=== PATIENT | male | born 1950 | race Caucasian/White ===

== ENCOUNTER 2017-10-26 08:00 | Inpatient (IN) | payer MEDICARE ==
[~2017-10-26] VITALS: Ht 193 cm; Wt 99.0 kg
[2017-10-26 08:48] LABS: Basophils # (auto) 0 uL; Basophils % (auto) 0.4 % (0.0-2.0); Eosinophils # (auto) 0 uL; Eosinophils % (auto) 0.5 % (0.0-7.0); Hematocrit 42.4 % (41.0-53.0); Hemoglobin 14.8 g/dL (13.5-17.5); Lymphocytes # (auto) 0.9 uL; Lymphocytes % (auto) 9.8 % (10.0-50.0); Mean Corpuscular Hemoglobin 30.9 pg (28.0-32.0); Mean Corpuscular Hgb Conc. 34.7 g/dL (32.0-36.0); Monocytes # (auto) 0.7 uL; Neutrophils # (auto) 7.3 uL; Neutrophils % (auto) 81.3 % (37.0-80.0); Nucleated Red Blood Cells % 0.1 %; Platelet Count (auto) 304 10^3/uL (140-450); Red Blood Cells 4.77 10^6/uL (4.5-5.90); Red Cell Distribution Width 12.4 % (11.8-14.3); White Blood Cell 8.9 10^3/uL (4.4-10.8)
[2017-10-26 09:04] LABS: Alanine Aminotransferase 20 U/L (16-61); Albumin 3.9 g/dL (3.4-5.0); Alkaline Phosphatase 72 U/L (45-117); Anion Gap 10 (5-15); Aspartate Aminotransferase 11 U/L (15-37); BUN/Creatinine Ratio 28.9; Bilirubin, Total 0.6 mg/dL (0.2-1.0); Blood Urea Nitrogen 35 mg/dL (7-18); Calcium 9.2 mg/dL (8.5-10.1); Carbon Dioxide 26 mmol/L (21-32); Chloride 98 mmol/L (98-107); GFR African American 77 mL/min; GFR Non-African American 64 mL/min; Magnesium 2.6 mg/dL (1.6-2.6); Potassium 3.9 mmol/L (3.5-5.1); Sodium 134 mmol/L (136-145); Total Protein 7.6 g/dL (6.4-8.2)
[2017-10-26 09:11] LABS: Glucose 410 mg/dL (74-106)
[2017-10-26] MEDS ORDERED: SODIUM CHLORIDE 0.9% 1,000 ML IV ONE ×2 (10:52)
[2017-10-26] MEDS ORDERED: InsuLIN REG 1unit/0.01ml Soln (100units/ml) IV ONE (11:00)
[2017-10-26] MEDS ORDERED: cloNIDine HCL 0.1 MG TAB PO ONE (14:30)
[2017-10-26] MEDS ORDERED: PROMETHAZINE HCL 25 MG/ML 1ML IV PRN (15:15)
[2017-10-26] MEDS ORDERED: ACETAMINOPHEN 500 MG TAB PO PRN (15:15)
[2017-10-26] MEDS ORDERED: MORPHINE SULFATE 8mg/ml INJ SDV IV PRN ×2 (15:15)
[2017-10-26] MEDS ORDERED: NITROGLYCERIN 0.4 MG SL TAB SL PRN (15:15)
[2017-10-26] MEDS ORDERED: LORazepam 0.5 MG TAB PO PRN (15:15)
[2017-10-26] MEDS ORDERED: TEMAZEPAM 15 MG CAP PO PRN (15:15)
[2017-10-26] MEDS ORDERED: DEXTROSE (50%) 50ML SYRG IV PRN (15:15)
[2017-10-26] MEDS ORDERED: HYDROcodone-ACET 5/325MG TAB PO PRN (15:15)
[2017-10-26] MEDS ORDERED: LACTULOSE 20Gm/30ML SOLN PO PRN (15:15)
[2017-10-26 15:51] LABS: Cholesterol 144 mg/dL (< 200); Creatine Kinase IFCC 140 U/L (39-308); HDL Cholesterol 38 mg/dL (40-59); LDL Cholesterol 82 mg/dL (< 100); Triglycerides 253 mg/dL (< 150)
[2017-10-26] MEDS: ACCU-CHEK COMFORT CURVE STRIP VI SCH ×2 (16:00→20:29)
[2017-10-26] MEDS: SODIUM CHLORIDE 0.9% 1,000 ML IV SCH (16:06)
[2017-10-26 16:09] LABS: Folate (Folic Acid) 16.58 ng/mL (5.38-24)
[2017-10-26] MEDS: InsuLIN REG 1unit/0.01ml Soln (100units/ml) SC SCH ×2 (18:21→20:31)
[2017-10-26] MEDS: cefTRIAXone 1GM/10ml IVPUSH 10 ML IV SCH (18:56)
[2017-10-26 20:12] LABS: INR 1.06 (0.9-1.15); Partial Thromboplastin Time 28.7 sec (23.78-33.04); Prothrombin Time 11.3 sec (9.27-12.13)
[2017-10-26 20:13] LABS: Lactic Acid w/Reflex 2.4 mmol/L (0.4-2.0)
[2017-10-26] MEDS: CLINDAMYCIN 600MG IV 50 ML IV SCH (22:24)
[2017-10-26] MEDS: ATORVASTATIN 20 MG TAB PO SCH (22:25)
[2017-10-26 22:30] VITALS: BP 138/77
[2017-10-27] MEDS ORDERED: PIPERACILLIN-TAZOB 3.375GM 100 ML IV SCH
[2017-10-27] MEDS: ACCU-CHEK COMFORT CURVE STRIP VI SCH ×7 (00:22→23:49)
[2017-10-27] MEDS: InsuLIN REG 1unit/0.01ml Soln (100units/ml) SC SCH ×7 (04:00→23:49)
[2017-10-27] MEDS: SODIUM CHLORIDE 0.9% 1,000 ML IV SCH ×2 (04:40→17:56)
[2017-10-27 05:13] LABS: Urine Bacteria NONE SEEN /hpf (None Seen); Urine Blood Negative /uL (Negative); Urine Specific Gravity 1.032 (1.001-1.035); Urine WBC 1 /hpf (0 - 3)
[2017-10-27 05:23] VITALS: BP 156/100
[2017-10-27] MEDS: CLINDAMYCIN 600MG IV 50 ML IV SCH ×3 (05:31→21:52)
[2017-10-27 05:34] LABS: Alcohol, Urine < 3.0 mg/dL (0-5); Amphetamine Screen, Urine NEGATIVE (NEGATIVE); Barbiturate Scree,Urine NEGATIVE (NEGATIVE); Benzodiazephine Screen, Urine NEGATIVE (NEGATIVE); Cannabinoid Screen, Urine NEGATIVE (NEGATIVE); Cocaine Screen, Urine NEGATIVE (NEGATIVE); Opiate Scree,Urine NEGATIVE (NEGATIVE); Phencyclidine Screen, Urine NEGATIVE (NEGATIVE)
[2017-10-27 06:51] LABS: Basophils # (auto) 0 uL; Basophils % (auto) 0.4 % (0.0-2.0); Eosinophils # (auto) 0.1 uL; Eosinophils % (auto) 1.2 % (0.0-7.0); Hematocrit 37.2 % (41.0-53.0); Hemoglobin 13.1 g/dL (13.5-17.5); Lymphocytes # (auto) 0.9 uL; Lymphocytes % (auto) 12.5 % (10.0-50.0); Mean Corpuscular Hemoglobin 31.5 pg (28.0-32.0); Mean Corpuscular Hgb Conc. 35.3 g/dL (32.0-36.0); Monocytes # (auto) 0.7 uL; Monocytes % (auto) 9.5 % (0.0-12.0); Neutrophils # (auto) 5.2 uL; Neutrophils % (auto) 76.4 % (37.0-80.0); Platelet Count (auto) 222 10^3/uL (140-450); Red Blood Cells 4.17 10^6/uL (4.5-5.90); Red Cell Distribution Width 12.8 % (11.8-14.3); White Blood Cell 6.9 10^3/uL (4.4-10.8)
[2017-10-27 08:00] VITALS: BP_SYST 179; BP_SYST 192; BP_DIAS 100; BP_DIAS 112
[2017-10-27] MEDS: cefTRIAXone 1GM/10ml IVPUSH 10 ML IV SCH (08:04)
[2017-10-27] MEDS: LABETALOL HCL 5 MG/ML ML 20ML VIAL IV PRN ×2 (08:04→11:06)
[2017-10-27] MEDS: PANTOPRAZOLE 40 MG TAB PO SCH (09:02)
[2017-10-27] MEDS: ASPirin 81 mg TAB PO SCH (09:03)
[2017-10-27] MEDS: ENOXAPARIN SOD 60 MG/0.6 ML SYRINGE SC SCH (09:03)
[2017-10-27 12:00] VITALS: BP 173/101
[2017-10-27] MEDS: cloNIDine HCL 0.1 MG TAB PO PRN (12:31)
[2017-10-27] MEDS: GABAPENTIN 300 MG CAP PO SCH ×2 (14:31→22:07)
[2017-10-27 16:45] VITALS: BP 130/85
[2017-10-27] MEDS: METOPROLOL TARTRATE 50 MG TAB PO SCH (21:53)
[2017-10-27] MEDS: ATORVASTATIN 20 MG TAB PO SCH (21:54)
[2017-10-27 22:25] VITALS: BP 166/99
[2017-10-28] VITALS (7 sets, daily range): BP systolic 87–170; BP diastolic 55–99
[2017-10-28] MEDS: SODIUM CHLORIDE 0.9% 1,000 ML IV SCH ×2 (04:44→17:36)
[2017-10-28] MEDS: InsuLIN REG 1unit/0.01ml Soln (100units/ml) SC SCH ×5 (04:48→19:52)
[2017-10-28] MEDS: ACCU-CHEK COMFORT CURVE STRIP VI SCH ×5 (04:48→19:52)
[2017-10-28] MEDS: cloNIDine HCL 0.1 MG TAB PO PRN ×2 (04:49→17:37)
[2017-10-28] MEDS: GABAPENTIN 300 MG CAP PO SCH ×3 (05:50→21:20)
[2017-10-28] MEDS: CLINDAMYCIN 600MG IV 50 ML IV SCH ×3 (05:52→21:19)
[2017-10-28 06:22] LABS: Basophils # (auto) 0 uL; Basophils % (auto) 0.4 % (0.0-2.0); Eosinophils # (auto) 0.1 uL; Eosinophils % (auto) 1.5 % (0.0-7.0); Hematocrit 40.8 % (41.0-53.0); Hemoglobin 14.5 g/dL (13.5-17.5); Lymphocytes # (auto) 0.8 uL; Lymphocytes % (auto) 9.6 % (10.0-50.0); Mean Corpuscular Hemoglobin 31.7 pg (28.0-32.0); Mean Corpuscular Hgb Conc. 35.5 g/dL (32.0-36.0); Mean Corpuscular Volume 89.2 fL (80.0-100.0); Monocytes # (auto) 0.5 uL; Neutrophils # (auto) 6.4 uL; Neutrophils % (auto) 81.5 % (37.0-80.0); Nucleated Red Blood Cells % 0.1 %; Platelet Count (auto) 237 10^3/uL (140-450); Red Blood Cells 4.57 10^6/uL (4.5-5.90); Red Cell Distribution Width 12.7 % (11.8-14.3); White Blood Cell 7.8 10^3/uL (4.4-10.8)
[2017-10-28 06:32] LABS: Albumin 3.5 g/dL (3.4-5.0); Calcium 8.5 mg/dL (8.5-10.1); Potassium 3.9 mmol/L (3.5-5.1)
[2017-10-28 06:43] LABS: BUN/Creatinine Ratio 24.1
[2017-10-28 06:55] LABS: Bilirubin, Total 0.7 mg/dL (0.2-1.0)
[2017-10-28 07:00] LABS: Total Protein 7.1 g/dL (6.4-8.2)
[2017-10-28] MEDS: ASPirin 81 mg TAB PO SCH (10:43)
[2017-10-28] MEDS: METOPROLOL TARTRATE 50 MG TAB PO SCH ×2 (10:46→21:33)
[2017-10-28] MEDS: PANTOPRAZOLE 40 MG TAB PO SCH (10:47)
[2017-10-28] MEDS: ENOXAPARIN SOD 60 MG/0.6 ML SYRINGE SC SCH (10:48)
[2017-10-28] MEDS: cefTRIAXone 1GM/10ml IVPUSH 10 ML IV SCH (10:48)
[2017-10-28] MEDS: ATORVASTATIN 20 MG TAB PO SCH (21:19)
[2017-10-28] MEDS: ASCORBIC ACID 500 MG TAB PO SCH (21:20)
[2017-10-28] MEDS: MULTIPLE VITAMINS W/ MINERALS TAB PO SCH (21:34)
[2017-10-29] MEDS: ACCU-CHEK COMFORT CURVE STRIP VI SCH ×6 (00:03→20:37)
[2017-10-29] MEDS: InsuLIN REG 1unit/0.01ml Soln (100units/ml) SC SCH ×6 (00:03→20:37)
[2017-10-29 05:00] VITALS: BP 125/76
[2017-10-29] MEDS: SODIUM CHLORIDE 0.9% 1,000 ML IV SCH ×2 (05:20→18:19)
[2017-10-29] MEDS: GABAPENTIN 300 MG CAP PO SCH ×3 (05:20→22:43)
[2017-10-29] MEDS: CLINDAMYCIN 600MG IV 50 ML IV SCH ×3 (05:21→22:40)
[2017-10-29 06:15] LABS: Basophils # (auto) 0 uL; Basophils % (auto) 0.4 % (0.0-2.0); Eosinophils # (auto) 0.1 uL; Eosinophils % (auto) 2.5 % (0.0-7.0); Hematocrit 38.3 % (41.0-53.0); Hemoglobin 13.5 g/dL (13.5-17.5); Lymphocytes # (auto) 0.9 uL; Lymphocytes % (auto) 14.7 % (10.0-50.0); Mean Corpuscular Hemoglobin 31.5 pg (28.0-32.0); Mean Corpuscular Hgb Conc. 35.3 g/dL (32.0-36.0); Mean Corpuscular Volume 89.3 fL (80.0-100.0); Monocytes # (auto) 0.6 uL; Monocytes % (auto) 10.1 % (0.0-12.0); Neutrophils # (auto) 4.2 uL; Neutrophils % (auto) 72.3 % (37.0-80.0); Nucleated Red Blood Cells % 0.1 %; Platelet Count (auto) 224 10^3/uL (140-450); Red Blood Cells 4.29 10^6/uL (4.5-5.90); Red Cell Distribution Width 12.4 % (11.8-14.3); White Blood Cell 5.9 10^3/uL (4.4-10.8)
[2017-10-29 06:31] LABS: Albumin 3.3 g/dL (3.4-5.0); BUN/Creatinine Ratio 27.1; Bilirubin, Total 0.5 mg/dL (0.2-1.0); Calcium 8.3 mg/dL (8.5-10.1); Potassium 3.5 mmol/L (3.5-5.1); Total Protein 6.5 g/dL (6.4-8.2)
[2017-10-29 08:00] VITALS: BP 125/76
[2017-10-29 09:00] VITALS: BP 131/82
[2017-10-29] MEDS: MULTIPLE VITAMINS W/ MINERALS TAB PO SCH ×2 (09:36→22:42)
[2017-10-29] MEDS: ASPirin 81 mg TAB PO SCH (09:36)
[2017-10-29] MEDS: PANTOPRAZOLE 40 MG TAB PO SCH (09:36)
[2017-10-29] MEDS: cefTRIAXone 1GM/10ml IVPUSH 10 ML IV SCH (09:37)
[2017-10-29] MEDS: METOPROLOL TARTRATE 50 MG TAB PO SCH (09:37)
[2017-10-29] MEDS: ASCORBIC ACID 500 MG TAB PO SCH ×2 (09:37→22:43)
[2017-10-29] MEDS: ENOXAPARIN SOD 60 MG/0.6 ML SYRINGE SC SCH (09:37)
[2017-10-29] MEDS ORDERED: CLOPIDOGREL BISULFATE 75 MG TAB PO SCH (10:00)
[2017-10-29] MEDS ORDERED: LACTULOSE 20Gm/30ML SOLN PO ONE (11:30)
[2017-10-29 13:00] VITALS: BP 111/67
[2017-10-29 17:00] VITALS: BP 184/97
[2017-10-29] MEDS: cloNIDine HCL 0.1 MG TAB PO PRN (17:04)
[2017-10-29 22:00] VITALS: BP 122/79
[2017-10-29] MEDS: ATORVASTATIN 20 MG TAB PO SCH (22:41)
[2017-10-29] MEDS: METOPROLOL TARTRATE 25 MG TAB PO SCH (22:42)
[2017-10-29] MEDS: CILOSTAZOL 100 MG TAB PO SCH (22:44)
[2017-10-30] MEDS: ACCU-CHEK COMFORT CURVE STRIP VI SCH ×4 (04:00→12:19)
[2017-10-30] MEDS: InsuLIN REG 1unit/0.01ml Soln (100units/ml) SC SCH ×4 (04:02→12:31)
[2017-10-30] MEDS: cloNIDine HCL 0.1 MG TAB PO PRN ×2 (04:53→12:21)
[2017-10-30 05:00] VITALS: BP 167/100
[2017-10-30 05:01] VITALS: BP 164/90
[2017-10-30] MEDS: GABAPENTIN 300 MG CAP PO SCH ×2 (06:00→14:03)
[2017-10-30] MEDS: CLINDAMYCIN 600MG IV 50 ML IV SCH ×2 (06:00→14:04)
[2017-10-30 06:08] LABS: Basophils # (auto) 0 uL; Basophils % (auto) 0.4 % (0.0-2.0); Eosinophils # (auto) 0.1 uL; Hematocrit 38.2 % (41.0-53.0); Hemoglobin 13.4 g/dL (13.5-17.5); Lymphocytes # (auto) 0.8 uL; Lymphocytes % (auto) 11.5 % (10.0-50.0); Mean Corpuscular Hgb Conc. 35.1 g/dL (32.0-36.0); Mean Corpuscular Volume 88.4 fL (80.0-100.0); Monocytes # (auto) 0.6 uL; Monocytes % (auto) 9.2 % (0.0-12.0); Neutrophils # (auto) 5.2 uL; Neutrophils % (auto) 76.9 % (37.0-80.0); Platelet Count (auto) 211 10^3/uL (140-450); Red Blood Cells 4.32 10^6/uL (4.5-5.90); Red Cell Distribution Width 12.6 % (11.8-14.3); White Blood Cell 6.8 10^3/uL (4.4-10.8)
[2017-10-30] MEDS: SODIUM CHLORIDE 0.9% 1,000 ML IV SCH (06:25)
[2017-10-30 06:39] LABS: Albumin 3.3 g/dL (3.4-5.0); BUN/Creatinine Ratio 23.6; Bilirubin, Total 0.7 mg/dL (0.2-1.0); Calcium 8.2 mg/dL (8.5-10.1); Potassium 3.6 mmol/L (3.5-5.1); Total Protein 6.6 g/dL (6.4-8.2)
[2017-10-30] MEDS: cefTRIAXone 1GM/10ml IVPUSH 10 ML IV SCH (08:53)
[2017-10-30 09:00] VITALS: BP 132/78
[2017-10-30] MEDS ORDERED: ASPirin-EC 81 mg tab PO SCH (10:00)
[2017-10-30] MEDS ORDERED: CLOPIDOGREL BISULFATE 75 MG TAB PO SCH (10:00)
[2017-10-30] MEDS: PANTOPRAZOLE 40 MG TAB PO SCH (10:54)
[2017-10-30] MEDS: ASCORBIC ACID 500 MG TAB PO SCH (10:54)
[2017-10-30] MEDS: CILOSTAZOL 100 MG TAB PO SCH (10:55)
[2017-10-30] MEDS: METOPROLOL TARTRATE 25 MG TAB PO SCH (10:55)
[2017-10-30] MEDS: MULTIPLE VITAMINS W/ MINERALS TAB PO SCH (10:55)
[2017-10-30] MEDS: ENOXAPARIN SOD 60 MG/0.6 ML SYRINGE SC SCH (10:56)
[2017-10-30 12:41] VITALS: BP 180/101
[2017-10-30 17:00] VITALS: BP 143/87
== END 2017-10-30 17:36 | disposition home or self-care (01) | DRG 603 ==
LOC: ER 08:00 → TELE 08:01 → TELE-WESTW 18:32
PROVIDERS: ADMIT Internal Medicine; ATTEND Family Medicine
DX: L03.032 Cellulitis of left toe (principal); E11.42 Type 2 diabetes mellitus with diabetic polyneuropathy; E11.51 Type 2 diabetes mellitus with diabetic peripheral angiopathy without gangrene; G95.9 Disease of spinal cord, unspecified; E11.621 Type 2 diabetes mellitus with foot ulcer; I10 Essential (primary) hypertension; I77.1 Stricture of artery; E11.65 Type 2 diabetes mellitus with hyperglycemia; I70.202 Unspecified atherosclerosis of native arteries of extremities, left leg; L97.529 Non-pressure chronic ulcer of other part of left foot with unspecified severity; M48.061 Spinal stenosis, lumbar region without neurogenic claudication; Z82.49 Family history of ischemic heart disease and other diseases of the circulatory system; Z83.3 Family history of diabetes mellitus; T50.905A Adverse effect of unspecified drugs, medicaments and biological substances, initial encounter; Y92.89 Other specified places as the place of occurrence of the external cause; R26.9 Unspecified abnormalities of gait and mobility; M47.896 Other spondylosis, lumbar region; R25.3 Fasciculation; M62.50 Muscle wasting and atrophy, not elsewhere classified, unspecified site
CPT/HCPCS: 36415; 70450; 71046; 72148; 73700; 80053; 80061; 80307; 81001; 82550; 82607; 82746; 82962; 83036; 83605; 83735; 84443; 84484; 85025; 85610; 85652; 85730; 87040; 93005; 93306; 93886; 93926; 96361; 96374; 97110; 97116; 97163; 97530; J1815; J3490

== ENCOUNTER 2017-11-25 16:09 | Inpatient (IN) | payer MEDICARE ==
[~2017-11-25] VITALS: Ht 190.5 cm; Wt 85.2 kg
[2017-11-25 17:08] LABS: Basophils # (auto) 0.1 uL; Basophils % (auto) 0.5 % (0.0-2.0); Eosinophils # (auto) 0.3 uL; Eosinophils % (auto) 2.8 % (0.0-7.0); Hematocrit 33.1 % (41.0-53.0); Hemoglobin 11.4 g/dL (13.5-17.5); Lymphocytes # (auto) 0.4 uL; Lymphocytes % (auto) 3.6 % (10.0-50.0); Mean Corpuscular Hemoglobin 29.7 pg (28.0-32.0); Mean Corpuscular Hgb Conc. 34.5 g/dL (32.0-36.0); Monocytes # (auto) 0.7 uL; Monocytes % (auto) 5.8 % (0.0-12.0); Neutrophils # (auto) 10.2 uL; Neutrophils % (auto) 87.3 % (37.0-80.0); Platelet Count (auto) 401 10^3/uL (140-450); Red Blood Cells 3.85 10^6/uL (4.5-5.90); Red Cell Distribution Width 13.3 % (11.8-14.3); White Blood Cell 11.6 10^3/uL (4.4-10.8)
[2017-11-25 17:15] LABS: Calcium 8.3 mg/dL (8.5-10.1); Potassium 4.9 mmol/L (3.5-5.1)
[2017-11-25 17:21] LABS: BUN/Creatinine Ratio 43.3; Bilirubin, Total 0.5 mg/dL (0.2-1.0); Total Protein 7.3 g/dL (6.4-8.2)
[2017-11-25] MEDS ORDERED: cefTRIAXone 1GM/10ml IVPUSH 10 ML IV ONE (18:30)
[2017-11-25] MEDS ORDERED: ACETAMINOPHEN 500 MG TAB PO PRN (18:30)
[2017-11-25] MEDS ORDERED: LORazepam 0.5 MG TAB PO PRN (18:30)
[2017-11-25] MEDS ORDERED: PROMETHAZINE HCL 25 MG/ML 1ML IV PRN (18:30)
[2017-11-25] MEDS ORDERED: DEXTROSE (50%) 50ML SYRG IV PRN (18:30)
[2017-11-25] MEDS ORDERED: NITROGLYCERIN 0.4 MG SL TAB SL PRN (18:30)
[2017-11-25] MEDS ORDERED: MORPHINE SULF INJ 2 MG/ML SYRINGE 1ML IV PRN ×2 (18:30)
[2017-11-25] MEDS ORDERED: TEMAZEPAM 15 MG CAP PO PRN (18:30)
[2017-11-25] MEDS: SODIUM CHLORIDE 0.9% 1,000 ML IV SCH (18:34)
[2017-11-25 18:55] LABS: Urine Bacteria NONE SEEN /hpf (None Seen); Urine Blood 2+ /uL (Negative); Urine Mucus FEW (None Seen); Urine Specific Gravity 1.017 (1.001-1.035); Urine WBC 3 /hpf (0 - 3)
[2017-11-25] MEDS ORDERED: ENOXAPARIN SOD 100 MG/1 ML SYRINGE SC ONE (20:30)
[2017-11-25 21:00] VITALS: BP 146/73
[2017-11-25] MEDS: CLINDAMYCIN 300MG IV 50 ML IV SCH (21:47)
[2017-11-25] MEDS: ACCU-CHEK COMFORT CURVE STRIP VI SCH (21:56)
[2017-11-25 22:00] VITALS: BP 146/73
[2017-11-25] MEDS: InsuLIN REG 1unit/0.01ml Soln (100units/ml) SC SCH (22:05)
[2017-11-26 05:00] VITALS: BP 133/72
[2017-11-26] MEDS: SODIUM CHLORIDE 0.9% 1,000 ML IV SCH ×2 (05:52→14:26)
[2017-11-26] MEDS: CLINDAMYCIN 300MG IV 50 ML IV SCH ×3 (05:52→21:47)
[2017-11-26 06:26] LABS: Basophils # (auto) 0.1 uL; Basophils % (auto) 0.7 % (0.0-2.0); Eosinophils # (auto) 0.3 uL; Eosinophils % (auto) 3.4 % (0.0-7.0); Hemoglobin 11.4 g/dL (13.5-17.5); Lymphocytes # (auto) 0.4 uL; Lymphocytes % (auto) 4.6 % (10.0-50.0); Mean Corpuscular Hemoglobin 30.7 pg (28.0-32.0); Mean Corpuscular Hgb Conc. 35.7 g/dL (32.0-36.0); Mean Corpuscular Volume 86.2 fL (80.0-100.0); Monocytes # (auto) 0.7 uL; Monocytes % (auto) 7.1 % (0.0-12.0); Neutrophils # (auto) 8.1 uL; Neutrophils % (auto) 84.2 % (37.0-80.0); Platelet Count (auto) 345 10^3/uL (140-450); Red Blood Cells 3.71 10^6/uL (4.5-5.90); Red Cell Distribution Width 13.3 % (11.8-14.3); White Blood Cell 9.6 10^3/uL (4.4-10.8)
[2017-11-26] MEDS: ACCU-CHEK COMFORT CURVE STRIP VI SCH ×4 (06:29→21:48)
[2017-11-26 06:57] LABS: Albumin 2.8 g/dL (3.4-5.0); BUN/Creatinine Ratio 49.3; Bilirubin, Total 0.6 mg/dL (0.2-1.0); Calcium 8.4 mg/dL (8.5-10.1); Potassium 4.2 mmol/L (3.5-5.1); Total Protein 6.7 g/dL (6.4-8.2)
[2017-11-26] MEDS: InsuLIN REG 1unit/0.01ml Soln (100units/ml) SC SCH ×4 (07:02→21:48)
[2017-11-26 08:00] VITALS: BP 153/78
[2017-11-26 08:30] VITALS: BP 133/72
[2017-11-26] MEDS: cefTRIAXone 1GM/10ml IVPUSH 10 ML IV SCH (10:23)
[2017-11-26] MEDS: ENOXAPARIN SOD 100 MG/1 ML SYRINGE SC SCH ×2 (10:23→21:48)
[2017-11-26 12:00] VITALS: BP 113/64
[2017-11-26] MEDS ORDERED: SODIUM CHLORIDE 0.9% 1,000 ML IV ONE (12:45)
[2017-11-26 17:00] VITALS: BP 132/76
[2017-11-26 22:37] VITALS: BP 121/65
[2017-11-27] MEDS: SODIUM CHLORIDE 0.9% 1,000 ML IV SCH ×3 (00:27→20:44)
[2017-11-27 05:30] VITALS: BP 159/92
[2017-11-27] MEDS: CLINDAMYCIN 300MG IV 50 ML IV SCH ×3 (05:36→21:54)
[2017-11-27] MEDS: InsuLIN REG 1unit/0.01ml Soln (100units/ml) SC SCH ×4 (06:13→21:54)
[2017-11-27] MEDS: ACCU-CHEK COMFORT CURVE STRIP VI SCH ×4 (06:14→21:54)
[2017-11-27 06:40] LABS: Basophils # (auto) 0.1 uL; Basophils % (auto) 0.8 % (0.0-2.0); Eosinophils # (auto) 0.3 uL; Eosinophils % (auto) 4.6 % (0.0-7.0); Hematocrit 33.7 % (41.0-53.0); Lymphocytes # (auto) 0.4 uL; Lymphocytes % (auto) 5.2 % (10.0-50.0); Mean Corpuscular Hgb Conc. 35.7 g/dL (32.0-36.0); Mean Corpuscular Volume 86.9 fL (80.0-100.0); Monocytes # (auto) 0.5 uL; Neutrophils # (auto) 6.3 uL; Neutrophils % (auto) 82.4 % (37.0-80.0); Platelet Count (auto) 339 10^3/uL (140-450); Red Blood Cells 3.88 10^6/uL (4.5-5.90); Red Cell Distribution Width 13.1 % (11.8-14.3); White Blood Cell 7.6 10^3/uL (4.4-10.8)
[2017-11-27 07:01] LABS: Albumin 2.9 g/dL (3.4-5.0); BUN/Creatinine Ratio 33.3; Bilirubin, Total 0.6 mg/dL (0.2-1.0); Calcium 8.3 mg/dL (8.5-10.1); Potassium 4.3 mmol/L (3.5-5.1); Total Protein 6.9 g/dL (6.4-8.2)
[2017-11-27 07:50] VITALS: BP 159/92
[2017-11-27 08:38] VITALS: BP 158/85
[2017-11-27] MEDS: ENOXAPARIN SOD 100 MG/1 ML SYRINGE SC SCH ×2 (10:10→21:54)
[2017-11-27] MEDS: cefTRIAXone 1GM/10ml IVPUSH 10 ML IV SCH (10:10)
[2017-11-27 13:00] VITALS: BP 158/85
[2017-11-27 16:37] VITALS: BP 153/88
[2017-11-27 20:00] VITALS: BP 146/76
[2017-11-28] VITALS (7 sets, daily range): BP systolic 143–165; BP diastolic 91–105
[2017-11-28 05:31] LABS: Basophils # (auto) 0 uL; Basophils % (auto) 0.5 % (0.0-2.0); Eosinophils # (auto) 0.4 uL; Eosinophils % (auto) 4.7 % (0.0-7.0); Hematocrit 32.5 % (41.0-53.0); Hemoglobin 11.7 g/dL (13.5-17.5); Lymphocytes # (auto) 0.4 uL; Lymphocytes % (auto) 5.3 % (10.0-50.0); Mean Corpuscular Hemoglobin 30.9 pg (28.0-32.0); Mean Corpuscular Hgb Conc. 35.9 g/dL (32.0-36.0); Mean Corpuscular Volume 86.1 fL (80.0-100.0); Monocytes # (auto) 0.6 uL; Monocytes % (auto) 7.2 % (0.0-12.0); Neutrophils # (auto) 6.7 uL; Neutrophils % (auto) 82.3 % (37.0-80.0); Nucleated Red Blood Cells % 0.1 %; Platelet Count (auto) 338 10^3/uL (140-450); Red Blood Cells 3.78 10^6/uL (4.5-5.90); Red Cell Distribution Width 12.8 % (11.8-14.3); White Blood Cell 8.1 10^3/uL (4.4-10.8)
[2017-11-28 05:57] LABS: Albumin 2.9 g/dL (3.4-5.0); BUN/Creatinine Ratio 24.4; Bilirubin, Total 0.6 mg/dL (0.2-1.0); Calcium 8.2 mg/dL (8.5-10.1); Total Protein 6.5 g/dL (6.4-8.2)
[2017-11-28] MEDS: SODIUM CHLORIDE 0.9% 1,000 ML IV SCH ×2 (06:21→17:00)
[2017-11-28] MEDS: CLINDAMYCIN 300MG IV 50 ML IV SCH ×3 (06:21→22:00)
[2017-11-28] MEDS: InsuLIN REG 1unit/0.01ml Soln (100units/ml) SC SCH ×4 (06:28→22:00)
[2017-11-28] MEDS: ACCU-CHEK COMFORT CURVE STRIP VI SCH ×4 (06:28→22:12)
[2017-11-28] MEDS: cefTRIAXone 1GM/10ml IVPUSH 10 ML IV SCH (09:26)
[2017-11-28] MEDS: ENOXAPARIN SOD 100 MG/1 ML SYRINGE SC SCH ×2 (09:27→22:00)
[2017-11-29] MEDS: SODIUM CHLORIDE 0.9% 1,000 ML IV SCH ×3 (02:26→22:52)
[2017-11-29 05:29] VITALS: BP 158/80
[2017-11-29 05:56] LABS: Basophils # (auto) 0 uL; Basophils % (auto) 0.6 % (0.0-2.0); Eosinophils # (auto) 0.3 uL; Eosinophils % (auto) 3.5 % (0.0-7.0); Hemoglobin 10.8 g/dL (13.5-17.5); Lymphocytes # (auto) 0.4 uL; Lymphocytes % (auto) 4.7 % (10.0-50.0); Mean Corpuscular Hgb Conc. 36.2 g/dL (32.0-36.0); Mean Corpuscular Volume 85.7 fL (80.0-100.0); Monocytes # (auto) 0.5 uL; Monocytes % (auto) 5.8 % (0.0-12.0); Neutrophils # (auto) 6.7 uL; Neutrophils % (auto) 85.4 % (37.0-80.0); Platelet Count (auto) 304 10^3/uL (140-450); Red Cell Distribution Width 12.8 % (11.8-14.3); White Blood Cell 7.9 10^3/uL (4.4-10.8)
[2017-11-29] MEDS: CLINDAMYCIN 300MG IV 50 ML IV SCH ×3 (06:15→22:51)
[2017-11-29] MEDS: ACCU-CHEK COMFORT CURVE STRIP VI SCH ×4 (06:27→22:00)
[2017-11-29] MEDS: InsuLIN REG 1unit/0.01ml Soln (100units/ml) SC SCH ×4 (06:32→22:00)
[2017-11-29 06:35] LABS: Albumin 2.6 g/dL (3.4-5.0); BUN/Creatinine Ratio 25.7; Bilirubin, Total 0.6 mg/dL (0.2-1.0); Calcium 8.1 mg/dL (8.5-10.1); Potassium 3.4 mmol/L (3.5-5.1); Total Protein 5.9 g/dL (6.4-8.2)
[2017-11-29] MEDS: cefTRIAXone 1GM/10ml IVPUSH 10 ML IV SCH (08:42)
[2017-11-29] MEDS: HYDROcodone-ACET 5/325MG TAB PO PRN ×2 (08:43→17:17)
[2017-11-29 09:00] VITALS: BP 151/77
[2017-11-29] MEDS: ENOXAPARIN SOD 100 MG/1 ML SYRINGE SC SCH ×2 (10:48→22:51)
[2017-11-29 13:00] VITALS: BP 168/92
[2017-11-29 16:49] VITALS: BP 166/92
[2017-11-30 05:00] VITALS: BP 134/71
[2017-11-30] MEDS: CLINDAMYCIN 300MG IV 50 ML IV SCH ×3 (06:52→21:57)
[2017-11-30] MEDS: InsuLIN REG 1unit/0.01ml Soln (100units/ml) SC SCH ×4 (07:00→21:58)
[2017-11-30 07:16] LABS: Basophils # (auto) 0 uL; Basophils % (auto) 0.5 % (0.0-2.0); Eosinophils # (auto) 0.3 uL; Eosinophils % (auto) 3.6 % (0.0-7.0); Hematocrit 29.8 % (41.0-53.0); Hemoglobin 10.3 g/dL (13.5-17.5); Lymphocytes # (auto) 0.4 uL; Lymphocytes % (auto) 5.4 % (10.0-50.0); Mean Corpuscular Hemoglobin 29.6 pg (28.0-32.0); Mean Corpuscular Hgb Conc. 34.5 g/dL (32.0-36.0); Mean Corpuscular Volume 85.9 fL (80.0-100.0); Monocytes # (auto) 0.5 uL; Monocytes % (auto) 6.9 % (0.0-12.0); Neutrophils # (auto) 5.9 uL; Neutrophils % (auto) 83.6 % (37.0-80.0); Platelet Count (auto) 281 10^3/uL (140-450); Red Blood Cells 3.47 10^6/uL (4.5-5.90); White Blood Cell 7.1 10^3/uL (4.4-10.8)
[2017-11-30 08:00] VITALS: BP 144/82
[2017-11-30 08:13] LABS: INR 1.29 (0.9-1.15); Prothrombin Time 13.6 sec (9.27-12.13)
[2017-11-30] MEDS: SODIUM CHLORIDE 0.9% 1,000 ML IV SCH ×2 (08:26→18:26)
[2017-11-30 09:00] VITALS: BP 144/82
[2017-11-30] MEDS: ENOXAPARIN SOD 100 MG/1 ML SYRINGE SC SCH ×2 (10:00→21:57)
[2017-11-30] MEDS: cefTRIAXone 1GM/10ml IVPUSH 10 ML IV SCH (10:23)
[2017-11-30] MEDS: ACCU-CHEK COMFORT CURVE STRIP VI SCH ×3 (11:30→21:58)
[2017-11-30 13:00] VITALS: BP 121/66
[2017-11-30] MEDS ORDERED: fentaNYL CITRATE 100 MCG/2 ML VL ONE (13:29)
[2017-11-30] MEDS ORDERED: ANGIOMAX 250 MG VIAL IV ONE (13:29)
[2017-11-30] MEDS ORDERED: MIDAZOLAM HCL 1MG/1ML-2 ML VIAL ONE (13:29)
[2017-11-30] MEDS ORDERED: SODIUM CHL 0.9% 0 ML ONE (13:29)
[2017-11-30] MEDS ORDERED: LIDOCAINE 2% (LOCAL ANESTH.) PF 5ml SDV ONE (13:32)
[2017-11-30 16:43] VITALS: BP 162/87
[2017-11-30 22:00] VITALS: BP 108/76
[2017-12-01] MEDS: SODIUM CHLORIDE 0.9% 1,000 ML IV SCH ×2 (02:08→14:26)
[2017-12-01 05:17] LABS: Basophils # (auto) 0.1 uL; Basophils % (auto) 0.7 % (0.0-2.0); Eosinophils # (auto) 0.3 uL; Eosinophils % (auto) 4.3 % (0.0-7.0); Hematocrit 30.9 % (41.0-53.0); Lymphocytes # (auto) 0.4 uL; Lymphocytes % (auto) 5.9 % (10.0-50.0); Mean Corpuscular Hemoglobin 30.8 pg (28.0-32.0); Mean Corpuscular Hgb Conc. 35.6 g/dL (32.0-36.0); Mean Corpuscular Volume 86.4 fL (80.0-100.0); Monocytes # (auto) 0.5 uL; Monocytes % (auto) 7.6 % (0.0-12.0); Neutrophils # (auto) 5.7 uL; Neutrophils % (auto) 81.5 % (37.0-80.0); Nucleated Red Blood Cells % 0.2 %; Platelet Count (auto) 248 10^3/uL (140-450); Red Blood Cells 3.58 10^6/uL (4.5-5.90); White Blood Cell 6.9 10^3/uL (4.4-10.8)
[2017-12-01] MEDS: CLINDAMYCIN 300MG IV 50 ML IV SCH ×2 (05:31→14:00)
[2017-12-01 05:41] LABS: BUN/Creatinine Ratio 24.4; Calcium 7.9 mg/dL (8.5-10.1); Potassium 3.4 mmol/L (3.5-5.1)
[2017-12-01 05:52] VITALS: BP 159/90
[2017-12-01] MEDS: InsuLIN REG 1unit/0.01ml Soln (100units/ml) SC SCH ×2 (06:04→12:51)
[2017-12-01] MEDS: ACCU-CHEK COMFORT CURVE STRIP VI SCH ×2 (06:04→12:52)
[2017-12-01 08:00] VITALS: BP 167/88
[2017-12-01 09:16] VITALS: BP 167/88
[2017-12-01] MEDS: ENOXAPARIN SOD 100 MG/1 ML SYRINGE SC SCH (09:56)
[2017-12-01] MEDS: cefTRIAXone 1GM/10ml IVPUSH 10 ML IV SCH (10:04)
[2017-12-01] MEDS ORDERED: RIVAROXABAN 15 MG TAB PO SCH (12:30)
[2017-12-01 12:53] VITALS: BP 168/88
[2017-12-01 14:51] VITALS: BP 168/88
== END 2017-12-01 16:25 | DRG 698 ==
LOC: ER 16:09 → EDBD 16:09 → TELE-WESTW 16:10
PROVIDERS: ADMIT Internal Medicine; ATTEND Family Medicine
PROC: B41G1ZZ Fluoroscopy of Left Lower Extremity Arteries using Low Osmolar Contrast (ICD-10-PCS; principal; 2017-11-30)
DX: N31.8 Other neuromuscular dysfunction of bladder (principal); N17.0 Acute kidney failure with tubular necrosis; I82.402 Acute embolism and thrombosis of unspecified deep veins of left lower extremity; N13.30 Unspecified hydronephrosis; N13.9 Obstructive and reflux uropathy, unspecified; E11.621 Type 2 diabetes mellitus with foot ulcer; E11.65 Type 2 diabetes mellitus with hyperglycemia; M48.061 Spinal stenosis, lumbar region without neurogenic claudication; L97.529 Non-pressure chronic ulcer of other part of left foot with unspecified severity; E11.22 Type 2 diabetes mellitus with diabetic chronic kidney disease; E11.42 Type 2 diabetes mellitus with diabetic polyneuropathy; E11.51 Type 2 diabetes mellitus with diabetic peripheral angiopathy without gangrene; E78.00 Pure hypercholesterolemia, unspecified; E78.5 Hyperlipidemia, unspecified; N39.498 Other specified urinary incontinence; L03.032 Cellulitis of left toe; D72.829 Elevated white blood cell count, unspecified; I12.9 Hypertensive chronic kidney disease with stage 1 through stage 4 chronic kidney disease, or unspecified chronic kidney disease; L97.509 Non-pressure chronic ulcer of other part of unspecified foot with unspecified severity; M19.90 Unspecified osteoarthritis, unspecified site; N18.3 Chronic kidney disease, stage 3 (moderate); Z79.01 Long term (current) use of anticoagulants; Z79.4 Long term (current) use of insulin; Z82.49 Family history of ischemic heart disease and other diseases of the circulatory system; Z86.73 Personal history of transient ischemic attack (TIA), and cerebral infarction without residual deficits; Z83.3 Family history of diabetes mellitus
CPT/HCPCS: 36415; 51702; 74176; 76775; 80048; 80053; 81001; 82150; 82962; 83036; 83690; 85025; 85610; 85652; 87081; 87086; 93925; 93971; 94761; 96361; 96372; 96374; 99152; J1815; J2250; J3490

== ENCOUNTER 2018-01-20 14:05 | Inpatient (IN) | payer MEDICARE ==
[~2018-01-20] VITALS: Ht 193 cm; Wt 91.3 kg
[2018-01-20] MEDS ORDERED: SODIUM CHLORIDE 0.9% 500 ML IV ONE (14:44)
[2018-01-20 16:29] LABS: Basophils # (auto) 0.1 uL; Basophils % (auto) 0.9 % (0.0-2.0); Eosinophils % (auto) 13.6 % (0.0-7.0); Hemoglobin 10.5 g/dL (13.5-17.5); Lymphocytes # (auto) 0.5 uL; Lymphocytes % (auto) 6.6 % (10.0-50.0); Mean Corpuscular Hemoglobin 30.8 pg (28.0-32.0); Mean Corpuscular Hgb Conc. 34.9 g/dL (32.0-36.0); Mean Corpuscular Volume 88.2 fL (80.0-100.0); Monocytes # (auto) 0.4 uL; Monocytes % (auto) 5.9 % (0.0-12.0); Neutrophils # (auto) 5.2 uL; Platelet Count (auto) 246 10^3/uL (140-450); Red Blood Cells 3.41 10^6/uL (4.5-5.90); Red Cell Distribution Width 14.6 % (11.8-14.3); White Blood Cell 7.2 10^3/uL (4.4-10.8)
[2018-01-20 16:46] LABS: Albumin 2.6 g/dL (3.4-5.0); BUN/Creatinine Ratio 22.6; Bilirubin, Total 0.4 mg/dL (0.2-1.0); Calcium 8.2 mg/dL (8.5-10.1); Potassium 4.1 mmol/L (3.5-5.1); Total Protein 5.9 g/dL (6.4-8.2)
[2018-01-20 16:54] LABS: Creatine Kinase IFCC 19 U/L (39-308)
[2018-01-20] MEDS: SODIUM CHLORIDE 0.9% 1,000 ML IV SCH (18:09)
[2018-01-20] MEDS ORDERED: LACTULOSE 20Gm/30ML SOLN PO PRN (18:15)
[2018-01-20] MEDS ORDERED: cefTRIAXone 1GM/10ml IVPUSH 10 ML IV ONE (18:15)
[2018-01-20] MEDS ORDERED: LORazepam 0.5 MG TAB PO PRN (18:15)
[2018-01-20] MEDS ORDERED: NITROGLYCERIN 0.4 MG SL TAB SL PRN (18:15)
[2018-01-20] MEDS ORDERED: TEMAZEPAM 15 MG CAP PO PRN (18:15)
[2018-01-20] MEDS ORDERED: MORPHINE SULF INJ 2 MG/ML SYRINGE 1ML IV PRN ×2 (18:15)
[2018-01-20] MEDS ORDERED: ACETAMINOPHEN 500 MG TAB PO PRN (18:15)
[2018-01-20] MEDS ORDERED: PROMETHAZINE HCL 25 MG/ML 1ML IV PRN (18:15)
[2018-01-20] MEDS ORDERED: HYDROcodone-ACET 5/325MG TAB PO PRN (18:15)
[2018-01-20] MEDS ORDERED: DEXTROSE (50%) 50ML SYRG IV PRN (18:15)
[2018-01-20 19:09] LABS: Urine Bacteria NONE SEEN /hpf (None Seen); Urine Blood TRACE /uL (Negative); Urine WBC 687 /hpf (0 - 3); Urine WBC Clumps PRESENT /hpf (None Seen)
[2018-01-20 20:20] VITALS: BP 114/67
[2018-01-20] MEDS: ACCU-CHEK COMFORT CURVE STRIP VI SCH (21:54)
[2018-01-20] MEDS: InsuLIN REG 1unit/0.01ml Soln (100units/ml) SC SCH (21:54)
[2018-01-21 06:00] VITALS: BP 103/62
[2018-01-21] MEDS: SODIUM CHLORIDE 0.9% 1,000 ML IV SCH ×2 (06:39→19:43)
[2018-01-21] MEDS: InsuLIN REG 1unit/0.01ml Soln (100units/ml) SC SCH ×4 (06:44→21:27)
[2018-01-21] MEDS: ACCU-CHEK COMFORT CURVE STRIP VI SCH ×4 (06:45→21:27)
[2018-01-21 08:00] VITALS: BP 119/71
[2018-01-21 09:00] VITALS: BP 119/71
[2018-01-21] MEDS: cefTRIAXone 1GM/10ml IVPUSH 10 ML IV SCH (09:41)
[2018-01-21] MEDS ORDERED: ENOXAPARIN SOD 40 MG/0.4 ML SYRINGE SC SCH (10:00)
[2018-01-21 11:01] LABS: Basophils # (auto) 0.1 uL; Eosinophils # (auto) 0.7 uL; Eosinophils % (auto) 11.3 % (0.0-7.0); Hematocrit 29.1 % (41.0-53.0); Lymphocytes # (auto) 0.5 uL; Lymphocytes % (auto) 7.9 % (10.0-50.0); Mean Corpuscular Hgb Conc. 34.4 g/dL (32.0-36.0); Monocytes # (auto) 0.4 uL; Monocytes % (auto) 6.8 % (0.0-12.0); Neutrophils # (auto) 4.6 uL; Platelet Count (auto) 216 10^3/uL (140-450); Red Blood Cells 3.24 10^6/uL (4.5-5.90); Red Cell Distribution Width 14.6 % (11.8-14.3); White Blood Cell 6.3 10^3/uL (4.4-10.8)
[2018-01-21 11:30] LABS: BUN/Creatinine Ratio 24.1; Calcium 7.8 mg/dL (8.5-10.1)
[2018-01-21 13:00] VITALS: BP 125/67
[2018-01-21] MEDS ORDERED: RIVA20TA PO (15:38)
[2018-01-21] MEDS ORDERED: ATOR20TA PO (15:38)
[2018-01-21] MEDS ORDERED: CLOP75TA28 PO (15:38)
[2018-01-21] MEDS ORDERED: BIS10RS PR (15:38)
[2018-01-21] MEDS ORDERED: LORA-655 PO (15:38)
[2018-01-21] MEDS ORDERED: GABA300C10 PO (15:38)
[2018-01-21] MEDS ORDERED: TEMA30CA PO (15:38)
[2018-01-21] MEDS ORDERED: ESCI5TAB PO (15:38)
[2018-01-21] MEDS ORDERED: ASCO500T11 GT (15:38)
[2018-01-21] MEDS ORDERED: NITR0.4S29 SL (15:38)
[2018-01-21] MEDS ORDERED: MET50T GT (15:38)
[2018-01-21] MEDS ORDERED: METF-371 PO (15:38)
[2018-01-21] MEDS ORDERED: GLIP-115 PO (15:38)
[2018-01-21] MEDS ORDERED: MULT-351 GT (15:38)
[2018-01-21] MEDS ORDERED: HYDR-4683 PO (15:38)
[2018-01-21 17:00] VITALS: BP 137/85
[2018-01-21 22:00] VITALS: BP 131/72
[2018-01-22 05:11] VITALS: BP 157/86
[2018-01-22] MEDS: ACCU-CHEK COMFORT CURVE STRIP VI SCH ×4 (06:13→22:02)
[2018-01-22] MEDS: InsuLIN REG 1unit/0.01ml Soln (100units/ml) SC SCH ×4 (06:13→22:00)
[2018-01-22 09:00] VITALS: BP 145/78
[2018-01-22] MEDS: SODIUM CHLORIDE 0.9% 1,000 ML IV SCH ×3 (09:26→21:14)
[2018-01-22] MEDS: CLOPIDOGREL BISULFATE 75 MG TAB PO SCH (09:34)
[2018-01-22] MEDS: METOPROLOL TARTRATE 25 MG TAB PO SCH ×2 (09:34→21:59)
[2018-01-22] MEDS: ESCITALOPRAM 5 MG PO SCH (09:35)
[2018-01-22] MEDS: cefTRIAXone 1GM/10ml IVPUSH 10 ML IV SCH (09:35)
[2018-01-22 13:00] VITALS: BP 148/86
[2018-01-22] MEDS: GABAPENTIN 300 MG CAP PO SCH ×2 (13:55→21:59)
[2018-01-22 17:00] VITALS: BP 153/80
[2018-01-22] MEDS: RIVAROXABAN 20 MG TAB PO SCH (18:02)
[2018-01-22] MEDS: ATORVASTATIN 20 MG TAB PO SCH (21:58)
[2018-01-22] MEDS: ASCORBIC ACID 500 MG TAB PO SCH (21:59)
[2018-01-22 22:00] VITALS: BP 133/71
[2018-01-22] MEDS: Glucerna Carbsteady SHAKE Stawberry 8oz PO SCH (22:00)
[2018-01-22] MEDS: Pro-Stat SF 30ml Vanilla PO SCH (22:00)
[2018-01-23] MEDS: SODIUM CHLORIDE 0.9% 1,000 ML IV SCH ×3 (03:15→17:40)
[2018-01-23 05:00] VITALS: BP 162/93
[2018-01-23] MEDS: GABAPENTIN 300 MG CAP PO SCH ×3 (06:32→21:23)
[2018-01-23] MEDS: Glucerna Carbsteady SHAKE Stawberry 8oz PO SCH ×3 (06:33→21:25)
[2018-01-23] MEDS: ACCU-CHEK COMFORT CURVE STRIP VI SCH ×4 (06:33→21:26)
[2018-01-23] MEDS: InsuLIN REG 1unit/0.01ml Soln (100units/ml) SC SCH ×4 (06:34→21:26)
[2018-01-23 08:00] VITALS: BP 151/83
[2018-01-23] MEDS: cefTRIAXone 1GM/10ml IVPUSH 10 ML IV SCH (08:39)
[2018-01-23 09:00] VITALS: BP 151/83
[2018-01-23] MEDS: MULTIPLE VITAMINS W/ MINERALS TAB PO SCH (09:54)
[2018-01-23] MEDS: METOPROLOL TARTRATE 25 MG TAB PO SCH ×2 (09:54→21:25)
[2018-01-23] MEDS: ASCORBIC ACID 500 MG TAB PO SCH ×2 (09:54→21:24)
[2018-01-23] MEDS: CLOPIDOGREL BISULFATE 75 MG TAB PO SCH (09:54)
[2018-01-23] MEDS: ESCITALOPRAM 5 MG PO SCH (09:55)
[2018-01-23] MEDS: Pro-Stat SF 30ml Vanilla PO SCH ×2 (09:55→21:25)
[2018-01-23] MEDS ORDERED: LEVOFLOXACIN 500MG 100 ML IV ONE (11:30)
[2018-01-23 13:03] VITALS: BP 133/69
[2018-01-23 17:00] VITALS: BP 135/77
[2018-01-23] MEDS: RIVAROXABAN 20 MG TAB PO SCH (17:40)
[2018-01-23] MEDS: ATORVASTATIN 20 MG TAB PO SCH (21:24)
[2018-01-23 22:00] VITALS: BP 142/78
[2018-01-24] MEDS: SODIUM CHLORIDE 0.9% 1,000 ML IV SCH ×2 (03:15→09:50)
[2018-01-24 05:00] VITALS: BP 155/87
[2018-01-24] MEDS: GABAPENTIN 300 MG CAP PO SCH ×3 (06:00→22:19)
[2018-01-24] MEDS: Glucerna Carbsteady SHAKE Stawberry 8oz PO SCH ×3 (06:00→22:19)
[2018-01-24] MEDS: ACCU-CHEK COMFORT CURVE STRIP VI SCH ×4 (06:11→22:20)
[2018-01-24] MEDS: InsuLIN REG 1unit/0.01ml Soln (100units/ml) SC SCH ×4 (06:12→22:20)
[2018-01-24 07:32] LABS: Basophils # (auto) 0.1 uL; Basophils % (auto) 1.7 % (0.0-2.0); Eosinophils # (auto) 0.4 uL; Eosinophils % (auto) 9.3 % (0.0-7.0); Hemoglobin 10.1 g/dL (13.5-17.5); Lymphocytes # (auto) 0.5 uL; Lymphocytes % (auto) 10.9 % (10.0-50.0); Mean Corpuscular Hemoglobin 30.9 pg (28.0-32.0); Mean Corpuscular Hgb Conc. 34.9 g/dL (32.0-36.0); Mean Corpuscular Volume 88.5 fL (80.0-100.0); Monocytes # (auto) 0.4 uL; Monocytes % (auto) 10.5 % (0.0-12.0); Neutrophils # (auto) 2.8 uL; Neutrophils % (auto) 67.6 % (37.0-80.0); Platelet Count (auto) 239 10^3/uL (140-450); Red Blood Cells 3.28 10^6/uL (4.5-5.90); Red Cell Distribution Width 14.3 % (11.8-14.3); White Blood Cell 4.2 10^3/uL (4.4-10.8)
[2018-01-24 07:45] LABS: Alanine Aminotransferase 12 U/L (16-61); Albumin 2.3 g/dL (3.4-5.0); Alkaline Phosphatase 49 U/L (45-117); Anion Gap 8 (5-15); Aspartate Aminotransferase < 3 U/L (15-37); BUN/Creatinine Ratio 19.1; Bilirubin, Total 0.3 mg/dL (0.2-1.0); Blood Urea Nitrogen 9 mg/dL (7-18); Calcium 7.7 mg/dL (8.5-10.1); Carbon Dioxide 24 mmol/L (21-32); Chloride 108 mmol/L (98-107); GFR African American 230 mL/min; GFR Non-African American 190 mL/min; Glucose 144 mg/dL (74-106); Potassium 3.3 mmol/L (3.5-5.1); Sodium 140 mmol/L (136-145); Total Protein 5.2 g/dL (6.4-8.2)
[2018-01-24 08:10] VITALS: BP 160/89
[2018-01-24] MEDS: MULTIPLE VITAMINS W/ MINERALS TAB PO SCH (09:40)
[2018-01-24] MEDS: LEVOFLOXACIN 500MG 100 ML IV SCH (09:40)
[2018-01-24] MEDS: Pro-Stat SF 30ml Vanilla PO SCH ×2 (09:40→22:19)
[2018-01-24] MEDS: ASCORBIC ACID 500 MG TAB PO SCH ×2 (09:41→22:18)
[2018-01-24] MEDS: CLOPIDOGREL BISULFATE 75 MG TAB PO SCH (09:41)
[2018-01-24] MEDS: ESCITALOPRAM 5 MG PO SCH (09:49)
[2018-01-24] MEDS: METOPROLOL TARTRATE 25 MG TAB PO SCH ×2 (10:21→22:18)
[2018-01-24 12:25] VITALS: BP 122/75
[2018-01-24] MEDS: RIVAROXABAN 20 MG TAB PO SCH (17:34)
[2018-01-24 17:37] VITALS: BP 166/96
[2018-01-24 22:00] VITALS: BP 163/86
[2018-01-24] MEDS: ATORVASTATIN 20 MG TAB PO SCH (22:18)
[2018-01-25 05:00] VITALS: BP 163/91
[2018-01-25] MEDS: GABAPENTIN 300 MG CAP PO SCH ×3 (05:43→22:08)
[2018-01-25] MEDS: Glucerna Carbsteady SHAKE Stawberry 8oz PO SCH ×3 (06:00→22:05)
[2018-01-25] MEDS: ACCU-CHEK COMFORT CURVE STRIP VI SCH ×4 (06:34→22:09)
[2018-01-25] MEDS: InsuLIN REG 1unit/0.01ml Soln (100units/ml) SC SCH ×4 (06:34→22:08)
[2018-01-25] MEDS ORDERED: METOPROLOL TARTRATE 25 MG TAB PO ONE (06:45)
[2018-01-25 09:00] VITALS: BP 155/92
[2018-01-25] MEDS: LEVOFLOXACIN 500MG 100 ML IV SCH (09:30)
[2018-01-25] MEDS: CLOPIDOGREL BISULFATE 75 MG TAB PO SCH (09:31)
[2018-01-25] MEDS: ASCORBIC ACID 500 MG TAB PO SCH ×2 (09:31→22:08)
[2018-01-25] MEDS: Pro-Stat SF 30ml Vanilla PO SCH ×2 (09:31→22:08)
[2018-01-25] MEDS: MULTIPLE VITAMINS W/ MINERALS TAB PO SCH (09:31)
[2018-01-25] MEDS: METOPROLOL TARTRATE 25 MG TAB PO SCH ×2 (09:31→22:07)
[2018-01-25] MEDS: ESCITALOPRAM 5 MG PO SCH (09:32)
[2018-01-25] MEDS ORDERED: POTASSIUM CHL 20 Meq TABLET PO ONE (10:00)
[2018-01-25] MEDS: FLUCONAZOLE 200MG/100ML 100 ML IV SCH ×2 (10:24→11:26)
[2018-01-25 10:44] LABS: Urine Specific Gravity 1.015 (1.001-1.035)
[2018-01-25] MEDS ORDERED: HYDROcodone-ACET 5/325MG TAB PO PRN (10:45)
[2018-01-25] MEDS ORDERED: MORPHINE SULF INJ 2 MG/ML SYRINGE 1ML IV PRN ×2 (10:45)
[2018-01-25 10:47] LABS: Urine WBC Clumps N /hpf (None Seen)
[2018-01-25 10:54] LABS: Urine Blood 3+ /uL (Negative); Urine WBC LOADED /hpf (0 - 3)
[2018-01-25 10:55] LABS: Urine Bacteria MANY /hpf (None Seen)
[2018-01-25] MEDS: AMPICILLIN INJ 1 GM in SODIUM CHL 0.9% 50 ML IV SCH ×2 (12:21→18:13)
[2018-01-25 13:00] VITALS: BP 136/79
[2018-01-25 17:00] VITALS: BP 139/83
[2018-01-25] MEDS: RIVAROXABAN 20 MG TAB PO SCH (17:44)
[2018-01-25 17:59] LABS: Urine Bacteria NONE SEEN /hpf (None Seen); Urine Blood 1+ /uL (Negative); Urine Mucus FEW (None Seen); Urine Specific Gravity 1.016 (1.001-1.035); Urine WBC 1185 /hpf (0 - 3); Urine WBC Clumps PRESENT /hpf (None Seen)
[2018-01-25 20:00] VITALS: BP 158/90
[2018-01-25 22:00] VITALS: BP 158/90
[2018-01-25] MEDS: ATORVASTATIN 20 MG TAB PO SCH (22:05)
[2018-01-26] MEDS: AMPICILLIN INJ 1 GM in SODIUM CHL 0.9% 50 ML IV SCH ×4 (00:51→18:07)
[2018-01-26] MEDS: Glucerna Carbsteady SHAKE Stawberry 8oz PO SCH ×4 (00:51→18:08)
[2018-01-26 05:00] VITALS: BP 142/83
[2018-01-26] MEDS: GABAPENTIN 300 MG CAP PO SCH ×3 (06:38→21:04)
[2018-01-26] MEDS: ACCU-CHEK COMFORT CURVE STRIP VI SCH ×4 (06:39→21:04)
[2018-01-26] MEDS: InsuLIN REG 1unit/0.01ml Soln (100units/ml) SC SCH ×4 (06:39→21:04)
[2018-01-26] MEDS: FLUCONAZOLE 200MG/100ML 100 ML IV SCH ×2 (08:49→11:09)
[2018-01-26] MEDS: METOPROLOL TARTRATE 25 MG TAB PO SCH ×2 (08:49→21:05)
[2018-01-26] MEDS: MULTIPLE VITAMINS W/ MINERALS TAB PO SCH (08:50)
[2018-01-26] MEDS: Pro-Stat SF 30ml Vanilla PO SCH ×2 (08:50→21:05)
[2018-01-26] MEDS: CLOPIDOGREL BISULFATE 75 MG TAB PO SCH (08:50)
[2018-01-26] MEDS: ASCORBIC ACID 500 MG TAB PO SCH ×2 (08:50→21:04)
[2018-01-26 09:00] VITALS: BP 139/77
[2018-01-26] MEDS: ESCITALOPRAM 5 MG PO SCH (09:26)
[2018-01-26 11:59] LABS: INR 1.21 (0.9-1.15); Prothrombin Time 12.8 sec (9.27-12.13)
[2018-01-26 17:00] VITALS: BP 156/103
[2018-01-26] MEDS: RIVAROXABAN 20 MG TAB PO SCH (18:07)
[2018-01-26] MEDS: ATORVASTATIN 20 MG TAB PO SCH (21:04)
[2018-01-26 22:52] VITALS: BP 127/69
[2018-01-27] VITALS (7 sets, daily range): BP systolic 123–163; BP diastolic 73–95
[2018-01-27] MEDS: GABAPENTIN 300 MG CAP PO SCH ×3 (05:45→22:01)
[2018-01-27] MEDS: InsuLIN REG 1unit/0.01ml Soln (100units/ml) SC SCH ×4 (05:45→22:16)
[2018-01-27] MEDS: AMPICILLIN INJ 1 GM in SODIUM CHL 0.9% 50 ML IV SCH ×5 (05:45→19:40)
[2018-01-27] MEDS: Glucerna Carbsteady SHAKE Stawberry 8oz PO SCH ×3 (05:45→22:02)
[2018-01-27] MEDS: ACCU-CHEK COMFORT CURVE STRIP VI SCH ×4 (05:45→22:16)
[2018-01-27 07:37] LABS: Basophils # (auto) 0.1 uL; Eosinophils # (auto) 0.3 uL; Eosinophils % (auto) 5.8 % (0.0-7.0); Hematocrit 28.4 % (41.0-53.0); Hemoglobin 9.7 g/dL (13.5-17.5); Lymphocytes # (auto) 0.6 uL; Lymphocytes % (auto) 11.6 % (10.0-50.0); Mean Corpuscular Hgb Conc. 34.1 g/dL (32.0-36.0); Mean Corpuscular Volume 87.8 fL (80.0-100.0); Monocytes # (auto) 0.5 uL; Monocytes % (auto) 8.2 % (0.0-12.0); Neutrophils # (auto) 4.1 uL; Neutrophils % (auto) 73.4 % (37.0-80.0); Nucleated Red Blood Cells % 0.1 %; Platelet Count (auto) 277 10^3/uL (140-450); Red Blood Cells 3.23 10^6/uL (4.5-5.90); Red Cell Distribution Width 14.3 % (11.8-14.3); White Blood Cell 5.6 10^3/uL (4.4-10.8)
[2018-01-27 07:58] LABS: Albumin 2.5 g/dL (3.4-5.0); BUN/Creatinine Ratio 15.4; Bilirubin, Total 0.3 mg/dL (0.2-1.0); Potassium 3.4 mmol/L (3.5-5.1); Total Protein 5.3 g/dL (6.4-8.2)
[2018-01-27] MEDS ORDERED: LIDOCAINE 1% (LOCAL ANESTH.) PF 5ml SDV ID ONE (10:00)
[2018-01-27] MEDS: SODIUM CHLOR 0.9% PF (SALINE LOCK) 10ML VIAL/SYR IV SCH ×2 (10:00→22:16)
[2018-01-27] MEDS: ESCITALOPRAM 5 MG PO SCH (10:00)
[2018-01-27] MEDS: Pro-Stat SF 30ml Vanilla PO SCH ×2 (10:00→22:02)
[2018-01-27] MEDS: MULTIPLE VITAMINS W/ MINERALS TAB PO SCH (10:33)
[2018-01-27] MEDS: ASCORBIC ACID 500 MG TAB PO SCH ×2 (10:33→22:00)
[2018-01-27] MEDS: CLOPIDOGREL BISULFATE 75 MG TAB PO SCH (10:33)
[2018-01-27] MEDS: METOPROLOL TARTRATE 25 MG TAB PO SCH ×2 (10:33→22:01)
[2018-01-27] MEDS: FLUCONAZOLE 200MG/100ML 100 ML IV SCH ×2 (10:36→13:09)
[2018-01-27] MEDS: RIVAROXABAN 20 MG TAB PO SCH (18:25)
[2018-01-27] MEDS: ATORVASTATIN 20 MG TAB PO SCH (22:00)
[2018-01-28] VITALS (7 sets, daily range): BP systolic 120–140; BP diastolic 70–79
[2018-01-28] MEDS: AMPICILLIN INJ 1 GM in SODIUM CHL 0.9% 50 ML IV SCH ×4 (01:02→18:42)
[2018-01-28] MEDS: GABAPENTIN 300 MG CAP PO SCH ×3 (05:50→21:34)
[2018-01-28] MEDS: ACCU-CHEK COMFORT CURVE STRIP VI SCH ×4 (06:34→21:34)
[2018-01-28] MEDS: InsuLIN REG 1unit/0.01ml Soln (100units/ml) SC SCH ×4 (06:35→21:45)
[2018-01-28] MEDS: Glucerna Carbsteady SHAKE Stawberry 8oz PO SCH ×3 (06:35→21:34)
[2018-01-28 06:55] LABS: Basophils # (auto) 0.1 uL; Basophils % (auto) 1.2 % (0.0-2.0); Eosinophils # (auto) 0.3 uL; Eosinophils % (auto) 5.5 % (0.0-7.0); Hematocrit 28.4 % (41.0-53.0); Hemoglobin 9.9 g/dL (13.5-17.5); Lymphocytes # (auto) 0.7 uL; Lymphocytes % (auto) 15.2 % (10.0-50.0); Mean Corpuscular Hemoglobin 30.6 pg (28.0-32.0); Mean Corpuscular Hgb Conc. 34.8 g/dL (32.0-36.0); Mean Corpuscular Volume 87.9 fL (80.0-100.0); Monocytes # (auto) 0.5 uL; Monocytes % (auto) 10.1 % (0.0-12.0); Neutrophils # (auto) 3.3 uL; Nucleated Red Blood Cells % 0.1 %; Platelet Count (auto) 299 10^3/uL (140-450); Red Blood Cells 3.23 10^6/uL (4.5-5.90); Red Cell Distribution Width 14.4 % (11.8-14.3); White Blood Cell 4.9 10^3/uL (4.4-10.8)
[2018-01-28 07:09] LABS: Albumin 2.5 g/dL (3.4-5.0); Bilirubin, Total 0.3 mg/dL (0.2-1.0); Calcium 7.8 mg/dL (8.5-10.1); Potassium 3.4 mmol/L (3.5-5.1); Total Protein 5.3 g/dL (6.4-8.2)
[2018-01-28] MEDS ORDERED: POTASSIUM CHL 20 Meq TABLET PO ONE (09:00)
[2018-01-28] MEDS: Pro-Stat SF 30ml Vanilla PO SCH ×2 (10:00→21:34)
[2018-01-28] MEDS: ESCITALOPRAM 5 MG PO SCH (10:00)
[2018-01-28] MEDS: MULTIPLE VITAMINS W/ MINERALS TAB PO SCH (10:11)
[2018-01-28] MEDS: METOPROLOL TARTRATE 25 MG TAB PO SCH ×2 (10:12→21:33)
[2018-01-28] MEDS: SODIUM CHLOR 0.9% PF (SALINE LOCK) 10ML VIAL/SYR IV SCH ×2 (10:12→21:34)
[2018-01-28] MEDS: ASCORBIC ACID 500 MG TAB PO SCH ×2 (10:12→21:33)
[2018-01-28] MEDS: CLOPIDOGREL BISULFATE 75 MG TAB PO SCH (10:12)
[2018-01-28] MEDS: FLUCONAZOLE 200MG/100ML 100 ML IV SCH ×2 (10:13→11:26)
[2018-01-28] MEDS: RIVAROXABAN 20 MG TAB PO SCH (17:47)
[2018-01-28] MEDS: ATORVASTATIN 20 MG TAB PO SCH (21:33)
[2018-01-29] VITALS (7 sets, daily range): BP systolic 100–149; BP diastolic 66–85
[2018-01-29] MEDS: AMPICILLIN INJ 1 GM in SODIUM CHL 0.9% 50 ML IV SCH ×4 (01:03→19:00)
[2018-01-29 05:14] LABS: Basophils # (auto) 0 uL; Basophils % (auto) 0.5 % (0.0-2.0); Eosinophils # (auto) 0.3 uL; Eosinophils % (auto) 6.4 % (0.0-7.0); Hematocrit 27.9 % (41.0-53.0); Hemoglobin 9.4 g/dL (13.5-17.5); Lymphocytes # (auto) 0.8 uL; Lymphocytes % (auto) 16.5 % (10.0-50.0); Mean Corpuscular Hemoglobin 29.9 pg (28.0-32.0); Mean Corpuscular Hgb Conc. 33.5 g/dL (32.0-36.0); Mean Corpuscular Volume 89.3 fL (80.0-100.0); Monocytes # (auto) 0.5 uL; Monocytes % (auto) 10.5 % (0.0-12.0); Neutrophils # (auto) 3.3 uL; Neutrophils % (auto) 66.1 % (37.0-80.0); Platelet Count (auto) 315 10^3/uL (140-450); Red Blood Cells 3.12 10^6/uL (4.5-5.90); Red Cell Distribution Width 14.5 % (11.8-14.3)
[2018-01-29 05:37] LABS: Albumin 2.5 g/dL (3.4-5.0); Bilirubin, Total 0.4 mg/dL (0.2-1.0); Calcium 7.9 mg/dL (8.5-10.1); Total Protein 5.3 g/dL (6.4-8.2)
[2018-01-29] MEDS: GABAPENTIN 300 MG CAP PO SCH ×3 (05:57→22:09)
[2018-01-29] MEDS: Glucerna Carbsteady SHAKE Stawberry 8oz PO SCH ×3 (05:57→22:09)
[2018-01-29] MEDS: InsuLIN REG 1unit/0.01ml Soln (100units/ml) SC SCH ×4 (06:37→22:13)
[2018-01-29] MEDS: ACCU-CHEK COMFORT CURVE STRIP VI SCH ×4 (06:37→22:14)
[2018-01-29] MEDS: ESCITALOPRAM 5 MG PO SCH (10:00)
[2018-01-29] MEDS: SODIUM CHLOR 0.9% PF (SALINE LOCK) 10ML VIAL/SYR IV SCH ×2 (10:00→22:09)
[2018-01-29] MEDS: FLUCONAZOLE 200MG/100ML 100 ML IV SCH ×2 (10:19→12:08)
[2018-01-29] MEDS: ASCORBIC ACID 500 MG TAB PO SCH ×2 (10:19→22:13)
[2018-01-29] MEDS: CLOPIDOGREL BISULFATE 75 MG TAB PO SCH (10:19)
[2018-01-29] MEDS: MULTIPLE VITAMINS W/ MINERALS TAB PO SCH (10:19)
[2018-01-29] MEDS: METOPROLOL TARTRATE 25 MG TAB PO SCH ×2 (10:21→22:12)
[2018-01-29] MEDS: Pro-Stat SF 30ml Vanilla PO SCH ×2 (10:27→22:12)
[2018-01-29] MEDS: RIVAROXABAN 20 MG TAB PO SCH (18:11)
[2018-01-29] MEDS: ATORVASTATIN 20 MG TAB PO SCH (22:09)
[2018-01-30] MEDS: AMPICILLIN INJ 1 GM in SODIUM CHL 0.9% 50 ML IV SCH ×4 (00:29→18:52)
[2018-01-30 05:11] VITALS: BP 131/82
[2018-01-30] MEDS: GABAPENTIN 300 MG CAP PO SCH ×3 (06:33→22:21)
[2018-01-30] MEDS: Glucerna Carbsteady SHAKE Stawberry 8oz PO SCH ×3 (06:33→22:19)
[2018-01-30] MEDS: ACCU-CHEK COMFORT CURVE STRIP VI SCH ×4 (06:34→22:23)
[2018-01-30] MEDS: InsuLIN REG 1unit/0.01ml Soln (100units/ml) SC SCH ×4 (06:34→22:22)
[2018-01-30 08:37] VITALS: BP 143/84
[2018-01-30] MEDS: ESCITALOPRAM 5 MG PO SCH (10:00)
[2018-01-30] MEDS: FLUCONAZOLE 200MG/100ML 100 ML IV SCH ×2 (10:18→11:18)
[2018-01-30] MEDS: MULTIPLE VITAMINS W/ MINERALS TAB PO SCH (10:19)
[2018-01-30] MEDS: CLOPIDOGREL BISULFATE 75 MG TAB PO SCH (10:19)
[2018-01-30] MEDS: SODIUM CHLOR 0.9% PF (SALINE LOCK) 10ML VIAL/SYR IV SCH ×2 (10:19→22:19)
[2018-01-30] MEDS: ASCORBIC ACID 500 MG TAB PO SCH ×2 (10:21→22:21)
[2018-01-30] MEDS: METOPROLOL TARTRATE 25 MG TAB PO SCH ×2 (10:21→22:21)
[2018-01-30] MEDS: Pro-Stat SF 30ml Vanilla PO SCH ×2 (10:21→22:21)
[2018-01-30 12:30] VITALS: BP 152/88
[2018-01-30 16:18] VITALS: BP 138/82
[2018-01-30] MEDS: RIVAROXABAN 20 MG TAB PO SCH (18:51)
[2018-01-30 20:00] VITALS: BP 125/72
[2018-01-30 21:43] VITALS: BP 125/72
[2018-01-30] MEDS: ATORVASTATIN 20 MG TAB PO SCH (22:19)
[2018-01-31] MEDS: AMPICILLIN INJ 1 GM in SODIUM CHL 0.9% 50 ML IV SCH ×4 (01:32→18:15)
[2018-01-31 05:37] VITALS: BP 136/74
[2018-01-31] MEDS: Glucerna Carbsteady SHAKE Stawberry 8oz PO SCH ×3 (06:26→21:56)
[2018-01-31] MEDS: GABAPENTIN 300 MG CAP PO SCH ×3 (06:27→21:46)
[2018-01-31] MEDS: InsuLIN REG 1unit/0.01ml Soln (100units/ml) SC SCH ×4 (06:51→21:54)
[2018-01-31] MEDS: ACCU-CHEK COMFORT CURVE STRIP VI SCH ×4 (06:51→21:48)
[2018-01-31 10:00] VITALS: BP 142/85
[2018-01-31] MEDS: Pro-Stat SF 30ml Vanilla PO SCH ×2 (10:00→21:56)
[2018-01-31] MEDS: SODIUM CHLOR 0.9% PF (SALINE LOCK) 10ML VIAL/SYR IV SCH ×2 (10:58→21:47)
[2018-01-31] MEDS: FLUCONAZOLE 200MG/100ML 100 ML IV SCH ×2 (10:58→12:32)
[2018-01-31] MEDS: CITALOPRAM HYDROBR 20 MG TAB PO SCH (10:58)
[2018-01-31] MEDS: METOPROLOL TARTRATE 25 MG TAB PO SCH ×2 (10:59→21:47)
[2018-01-31] MEDS: MULTIPLE VITAMINS W/ MINERALS TAB PO SCH (10:59)
[2018-01-31] MEDS: ASCORBIC ACID 500 MG TAB PO SCH ×2 (10:59→21:47)
[2018-01-31] MEDS: CLOPIDOGREL BISULFATE 75 MG TAB PO SCH (10:59)
[2018-01-31 13:00] VITALS: BP 145/87
[2018-01-31 16:00] VITALS: BP 131/82
[2018-01-31] MEDS: RIVAROXABAN 20 MG TAB PO SCH (17:50)
[2018-01-31 21:29] VITALS: BP 123/75
[2018-01-31] MEDS: ATORVASTATIN 20 MG TAB PO SCH (21:47)
[2018-01-31 22:29] VITALS: BP 126/58
[2018-02-01] MEDS: AMPICILLIN INJ 1 GM in SODIUM CHL 0.9% 50 ML IV SCH ×4 (00:55→17:35)
[2018-02-01 05:04] VITALS: BP 149/97
[2018-02-01] MEDS: Glucerna Carbsteady SHAKE Stawberry 8oz PO SCH ×2 (05:59→13:47)
[2018-02-01] MEDS: GABAPENTIN 300 MG CAP PO SCH ×2 (05:59→13:46)
[2018-02-01] MEDS: ACCU-CHEK COMFORT CURVE STRIP VI SCH ×3 (06:15→17:35)
[2018-02-01] MEDS: InsuLIN REG 1unit/0.01ml Soln (100units/ml) SC SCH ×3 (06:19→17:36)
[2018-02-01 08:39] VITALS: BP 140/83
[2018-02-01] MEDS: Pro-Stat SF 30ml Vanilla PO SCH (10:00)
[2018-02-01] MEDS: SODIUM CHLOR 0.9% PF (SALINE LOCK) 10ML VIAL/SYR IV SCH (10:00)
[2018-02-01] MEDS: FLUCONAZOLE 200MG/100ML 100 ML IV SCH ×2 (11:00→11:07)
[2018-02-01] MEDS: METOPROLOL TARTRATE 25 MG TAB PO SCH (11:07)
[2018-02-01] MEDS: MULTIPLE VITAMINS W/ MINERALS TAB PO SCH (11:07)
[2018-02-01] MEDS: ASCORBIC ACID 500 MG TAB PO SCH (11:07)
[2018-02-01] MEDS: CITALOPRAM HYDROBR 20 MG TAB PO SCH (11:08)
[2018-02-01] MEDS: CLOPIDOGREL BISULFATE 75 MG TAB PO SCH (11:08)
[2018-02-01 13:00] VITALS: BP 168/98
[2018-02-01 17:10] VITALS: BP 149/90
[2018-02-01] MEDS: RIVAROXABAN 20 MG TAB PO SCH (17:40)
== END 2018-02-01 19:40 | DRG 871 ==
LOC: EDBD 14:05 → ER 14:05 → TELE 14:06 → TELE-EAST 19:57 → EAST 01-29 17:00
PROVIDERS: ADMIT Internal Medicine; ATTEND Family Medicine
PROC: 02HV33Z Insertion of Infusion Device into Superior Vena Cava, Percutaneous Approach (ICD-10-PCS; principal; 2018-01-27)
DX: A41.9 Sepsis, unspecified organism (principal); G93.41 Metabolic encephalopathy; E43 Unspecified severe protein-calorie malnutrition; N17.0 Acute kidney failure with tubular necrosis; I82.402 Acute embolism and thrombosis of unspecified deep veins of left lower extremity; N39.0 Urinary tract infection, site not specified; M48.52XA Collapsed vertebra, not elsewhere classified, cervical region, initial encounter for fracture; N13.8 Other obstructive and reflux uropathy; R62.7 Adult failure to thrive; D64.9 Anemia, unspecified; N18.3 Chronic kidney disease, stage 3 (moderate); L89.302 Pressure ulcer of unspecified buttock, stage 2; E11.22 Type 2 diabetes mellitus with diabetic chronic kidney disease; E11.51 Type 2 diabetes mellitus with diabetic peripheral angiopathy without gangrene; E11.42 Type 2 diabetes mellitus with diabetic polyneuropathy; E11.621 Type 2 diabetes mellitus with foot ulcer; E11.65 Type 2 diabetes mellitus with hyperglycemia; E78.00 Pure hypercholesterolemia, unspecified; E78.5 Hyperlipidemia, unspecified; Z82.0 Family history of epilepsy and other diseases of the nervous system; Z83.3 Family history of diabetes mellitus; Z82.49 Family history of ischemic heart disease and other diseases of the circulatory system; I12.9 Hypertensive chronic kidney disease with stage 1 through stage 4 chronic kidney disease, or unspecified chronic kidney disease; I70.8 Atherosclerosis of other arteries; K59.00 Constipation, unspecified; L97.519 Non-pressure chronic ulcer of other part of right foot with unspecified severity; L97.529 Non-pressure chronic ulcer of other part of left foot with unspecified severity; M47.22 Other spondylosis with radiculopathy, cervical region; M48.02 Spinal stenosis, cervical region; M77.9 Enthesopathy, unspecified; N40.1 Benign prostatic hyperplasia with lower urinary tract symptoms; R33.8 Other retention of urine; Z74.01 Bed confinement status; Z79.01 Long term (current) use of anticoagulants; Z79.4 Long term (current) use of insulin; Z86.718 Personal history of other venous thrombosis and embolism; Z86.73 Personal history of transient ischemic attack (TIA), and cerebral infarction without residual deficits; Z87.440 Personal history of urinary (tract) infections; M48.061 Spinal stenosis, lumbar region without neurogenic claudication; Z68.24 Body mass index [BMI] 24.0-24.9, adult
CPT/HCPCS: 36415; 51702; 70450; 70551; 71045; 72141; 74176; 76775; 80048; 80053; 81001; 82550; 82962; 83036; 84484; 85025; 85610; 87040; 87081; 87086; 87088; 87186; 93005; 96361; 96374; 97110; 97163; 97530; J0696; J1450; J1815; J1956

== ENCOUNTER 2018-12-08 14:55 | Inpatient (IN) | payer MEDICARE, MEDICAID ==
[~2018-12-08] VITALS: Ht 193 cm; Wt 112.0 kg
[~2018-12-08 14:55] MED LIST: ACET-1156 PO; ASCO500T11 PO; ATOR20TA PO; BIS10RS PR; CHOL20007 PO; CLOP75TA28 PO; ESCI5TAB PO; GABA300C10 PO; HYDR-4833 PO; LACT10SO3 PO; LORA-655 PO; MET50T PO; METR500T PO; MIRT30TA PO; MOMLQ PO; MULT-351 PO; NITR0.4S29 SL; PROM25TA5 PO; RIVA20TA PO; SODIENE35 RE; TEMA30CA PO; [UNRECOGNIZED DRUG - CODE] PO
[2018-12-08] MEDS ORDERED: VANCOMYCIN 1GM/250ML 250 ML IV ONE (16:00)
[2018-12-08] MEDS ORDERED: SODIUM CHLORIDE 0.9% 1,000 ML IV ONE ×2 (16:00→17:15)
[2018-12-08 16:33] LABS: Basophils # (auto) 0 uL; Basophils % (auto) 0.3 % (0.0-2.0); Eosinophils # (auto) 0.1 uL; Eosinophils % (auto) 0.7 % (0.0-7.0); Hematocrit 31.1 % (41.0-53.0); Hemoglobin 10.3 g/dL (13.5-17.5); Lymphocytes # (auto) 0.5 uL; Lymphocytes % (auto) 4.4 % (10.0-50.0); Mean Corpuscular Hemoglobin 28.8 pg (28.0-32.0); Mean Corpuscular Volume 87.3 fL (80.0-100.0); Monocytes # (auto) 1.1 uL; Neutrophils # (auto) 9.5 uL; Neutrophils % (auto) 84.6 % (37.0-80.0); Platelet Count (auto) 390 10^3/uL (140-450); Red Blood Cells 3.56 10^6/uL (4.5-5.90); Red Cell Distribution Width 13.4 % (11.8-14.3); White Blood Cell 11.2 10^3/uL (4.4-10.8)
[2018-12-08 16:48] LABS: Alanine Aminotransferase 13 U/L (16-61); Albumin 1.8 g/dL (3.4-5.0); Anion Gap 17 (5-15); Aspartate Aminotransferase 12 U/L (15-37); BUN/Creatinine Ratio 33.5; Calcium 7.1 mg/dL (8.5-10.1); Carbon Dioxide 17 mmol/L (21-32); Chloride 102 mmol/L (98-107); GFR African American 24 mL/min; GFR Non-African American 20 mL/min; Glucose 158 mg/dL (74-106); Potassium 3.3 mmol/L (3.5-5.1); Sodium 136 mmol/L (136-145)
[2018-12-08 16:52] LABS: Alkaline Phosphatase 110 U/L (45-117); Bilirubin, Total 0.5 mg/dL (0.2-1.0); Total Protein 4.8 g/dL (6.4-8.2)
[2018-12-08 17:04] LABS: Blood Urea Nitrogen 110 mg/dL (7-18)
[2018-12-08 17:59] LABS: INR 1.21 (0.9-1.15); Partial Thromboplastin Time 29.6 sec (23.64-32.05)
[2018-12-08 18:20] LABS: Urine Bacteria MANY /hpf (None Seen); Urine Blood 2+ /uL (Negative); Urine Hyaline Cast MANY /lpf (0 - 2); Urine Mucus FEW (None Seen); Urine Specific Gravity 1.017 (1.001-1.035); Urine WBC 517 /hpf (0 - 3)
[2018-12-08] MEDS ORDERED: NITROGLYCERIN 0.4 MG SL TAB SL PRN (18:45)
[2018-12-08] MEDS ORDERED: MORPHINE SULF INJ 2 MG/ML SYRINGE 1ML IV PRN ×2 (18:45→19:00)
[2018-12-08] MEDS ORDERED: SODIUM CHLORIDE 0.9% 1,000 ML IV SCH (19:00)
[2018-12-08] MEDS ORDERED: DEXTROSE (50%) 50ML SYRG IV PRN (19:00)
[2018-12-08] MEDS ORDERED: ONDANSETRON HCL 4 MG/2 ML VIAL IV PRN (19:00)
[2018-12-08] MEDS ORDERED: metroNIDAZOLE 500MG/100ML 100 ML IV ONE (19:30)
--- NOTE | 2018-12-08 19:50 | NUR ---
Telemetry admit from ER NATALIE CALZADA admitted to Telemetry unit after SBAR received. Patient oriented to primary RN, unit, room, bed, and unit policies regarding patient care and visiting hours. Patient now on continuous telemetry monitoring, tele box # 42 and telemetry reading on arrival to unit is SR at 71. Patient weighed by bedscale and encouraged to call if they need something. All questions and concerns addressed, patient verbalized understanding.
[2018-12-08 22:00] VITALS: BP 90/49
[2018-12-08] MEDS: SODIUM CHLORIDE 0.9% 1,000 ML IV SCH (22:03)
[2018-12-08] MEDS: ACCU-CHEK COMFORT CURVE STRIP VI SCH (22:04)
--- NOTE | 2018-12-08 22:20 | NUR ---
Wound to sacrum, left and right heel picture taken.
[2018-12-08] MEDS: InsuLIN REG 1unit/0.01ml Soln (100units/ml) SC SCH (22:49)
[2018-12-08] MEDS: VANCOMYCIN HCL 125MG/5ML ORAL SOL GT SCH (23:59)
--- NOTE | 2018-12-09 01:51 | NUR ---
CRITICAL BUN 106 GHADA DUONG FROM LAB CALLED TO INFORMED ME SO I MADE DOCTOR GERBER AWARE OF CRITICAL LAB. NO NEW ORDERS Addendum: 12/10/18 at 0210 by Gregg Martinez RN WRONG TIME AND DATE 12/09/18 2237
[2018-12-09] MEDS: SODIUM CHLORIDE 0.9% 1,000 ML IV SCH ×3 (03:20→17:55)
[2018-12-09] MEDS ORDERED: VANC125PO PO (04:44)
[2018-12-09] MEDS ORDERED: INSLANTI SC (04:45)
[2018-12-09 04:50] VITALS: BP 94/50
[2018-12-09 05:43] LABS: Albumin 1.7 g/dL (3.4-5.0); Calcium 7.3 mg/dL (8.5-10.1)
[2018-12-09 05:45] LABS: BUN/Creatinine Ratio 36.5; Basophils # (auto) 0 uL; Basophils % (auto) 0.1 % (0.0-2.0); Bilirubin, Total 0.6 mg/dL (0.2-1.0); Eosinophils # (auto) 0.1 uL; Eosinophils % (auto) 0.6 % (0.0-7.0); Hematocrit 30.4 % (41.0-53.0); Lymphocytes # (auto) 0.5 uL; Lymphocytes % (auto) 4.2 % (10.0-50.0); Mean Corpuscular Hemoglobin 28.9 pg (28.0-32.0); Mean Corpuscular Hgb Conc. 32.8 g/dL (32.0-36.0); Mean Corpuscular Volume 88.1 fL (80.0-100.0); Monocytes # (auto) 1.1 uL; Monocytes % (auto) 8.7 % (0.0-12.0); Neutrophils # (auto) 11.1 uL; Neutrophils % (auto) 86.4 % (37.0-80.0); Platelet Count (auto) 365 10^3/uL (140-450); Red Blood Cells 3.45 10^6/uL (4.5-5.90); Red Cell Distribution Width 13.6 % (11.8-14.3); Total Protein 4.4 g/dL (6.4-8.2); White Blood Cell 12.8 10^3/uL (4.4-10.8)
[2018-12-09 05:48] LABS: Potassium 2.9 mmol/L (3.5-5.1)
--- NOTE | 2018-12-09 06:01 | NUR ---
Paged Dr. Mcintosh for critical lab levels. Awaiting call back.
[2018-12-09] MEDS: InsuLIN REG 1unit/0.01ml Soln (100units/ml) SC SCH ×4 (06:49→22:40)
[2018-12-09] MEDS: VANCOMYCIN HCL 125MG/5ML ORAL SOL GT SCH ×2 (06:49→12:00)
[2018-12-09] MEDS: ACCU-CHEK COMFORT CURVE STRIP VI SCH ×4 (06:49→22:33)
--- NOTE | 2018-12-09 07:30 | NUR ---
Opening Shift Note Assuming care of patient at this time. Patient is awake and alert. Patient denies pain. Instructed patient on the plan of care for today and to call for assistance as needed. Call light within reach. Will continue to round hourly and as needed.
[2018-12-09] MEDS ORDERED: POTASSIUM CHL 20 Meq TABLET PO ONE (08:15)
[2018-12-09 09:00] VITALS: BP 102/56
[2018-12-09] MEDS ORDERED: cefTRIAXone 1GM/50ML D5W 50 ML IV SCH (09:00)
[2018-12-09] MEDS: POTASSIUM CHL 20 Meq TABLET PO SCH ×3 (11:00→22:40)
[2018-12-09] MEDS: POTASSIUM CHL 20MEQ/100ML 100 ML IV SCH ×4 (11:14→17:21)
--- NOTE | 2018-12-09 13:05 | NUR ---
WOUND CARE NOTE: Wound care in to see patient per wound care request regarding multiple skin integrity issue that are noted present on admission. Bedside nurse took photograph of patient's wounds upon admission for reference. Patient is 68 years old male with admitting diagnosis of C Diff. Patient is resting in bed in Rm 209A. He's awake but not fully oriented. He's max assist in turning and repositioning. His Aj score is 10. Skin assessment done with the assistance of patient's nurse, ALEAH Jasso. Noted patient's R sacrum has [id number] evolving DTI (Deep tissue injury) Proximal aspect of wound is open to full thickness no measurable depth, distal aspect is dark maroon and soft, no drainage/odor noted. L sacrum has 1x1cm open partial thickness wound (Stage 2 pressure injury). Lower buttocks has skin irritation, redness from moisture. Patient is incontinent of loose stool. Phuong care given, applied Cavilon skin protectant to lower buttock, perirectal area. Applied Z Guard cream to Rt and Lt. sacrum and covered with Opti foam sacral dressing. 3x3cm Intact DTI noted to patient's Rt heel. Patient's L heel has intact skin with non-blanchable redness (Stage 1 pressure injury). Noted patient's LLE is edematous in comparison to his RLE. Repositioned patient for comfort facing his Rt side, redistributed pressure points with pillows and elevated heels on pillows. Patient tolerated well. bed in low position, call soriano within reach, bed alarm on. RECOMMENDATION: BID/PRN dressing change to sacral wounds per MD order, Dietary consult, frequent turning and repositioning schedule as condition permits, redistribute pressure points with pillows, air mattress (ordered), elevate BLE on pillows, continue monitoring by wound care while patient is hospitalized. Addendum: 12/09/18 at 1829 by Whitney Argueta RN Amended: Links added.
[2018-12-09 13:15] VITALS: BP 100/60
[2018-12-09 16:50] VITALS: BP 98/63
[2018-12-09] MEDS: VANCOMYCIN HCL 125MG/5ML ORAL SOL PO SCH (18:22)
--- NOTE | 2018-12-09 19:15 | NUR ---
Opening shift note: Assumed care from day nurse. Patient is resting in bed with his eyes closed. Even and unlabored breathing. No s/s of distress or sob. Abdi to gravity drain urine. Bed in lowest positions, side rails x 2, locked with call light in reach.
--- NOTE | 2018-12-09 19:30 | NUR ---
Closing Note Patient is resting in bed. Patient continues to deny pain. Patient has had 5 bouts of diarrhea today. Report given. Will endorse care to the rn shift mgr RN.
[2018-12-09 22:00] VITALS: BP 104/69
[2018-12-09] MEDS ORDERED: POTASSIUM CHL 20 Meq TABLET PO SCH (22:00)
[2018-12-09 22:28] LABS: Anion Gap 14 (5-15); BUN/Creatinine Ratio 34.9; Calcium 7.2 mg/dL (8.5-10.1); Carbon Dioxide 15 mmol/L (21-32); Chloride 107 mmol/L (98-107); GFR African American 27 mL/min; GFR Non-African American 22 mL/min; Glucose 150 mg/dL (74-106); Potassium 3.9 mmol/L (3.5-5.1); Sodium 136 mmol/L (136-145)
[2018-12-09 22:31] LABS: Blood Urea Nitrogen 106 mg/dL (7-18)
[2018-12-10] MEDS: VANCOMYCIN HCL 125MG/5ML ORAL SOL PO SCH ×5 (00:12→23:49)
[2018-12-10] MEDS: SODIUM CHLORIDE 0.9% 1,000 ML IV SCH ×4 (00:14→23:40)
[2018-12-10 05:00] VITALS: BP 116/71
[2018-12-10] MEDS: InsuLIN REG 1unit/0.01ml Soln (100units/ml) SC SCH ×4 (05:47→22:00)
[2018-12-10] MEDS: ACCU-CHEK COMFORT CURVE STRIP VI SCH ×4 (05:48→23:39)
--- NOTE | 2018-12-10 07:30 | NUR ---
Opening Shift Note Assumed care of patient, awake and alert. No S/S of distress/SOB or pain. Instructed on POC and to call for assist PRN, will continue to monitor for changes Q1hr and PRN. Trinidad nunez patent. Call light in reach.
--- NOTE | 2018-12-10 08:25 | NUR ---
Dr. Mclaughlin in to see patient for GI consult.
[2018-12-10 09:00] VITALS: BP 122/76
[2018-12-10] MEDS: POTASSIUM CHL 20 Meq TABLET PO SCH ×3 (09:35→22:00)
[2018-12-10 13:00] VITALS: BP 112/69
[2018-12-10 14:41] LABS: Basophils # (auto) 0.1 uL; Eosinophils # (auto) 0.1 uL; Eosinophils % (auto) 0.7 % (0.0-7.0); Hematocrit 32.1 % (41.0-53.0); Hemoglobin 10.3 g/dL (13.5-17.5); Lymphocytes # (auto) 0.5 uL; Lymphocytes % (auto) 3.3 % (10.0-50.0); Mean Corpuscular Hemoglobin 28.8 pg (28.0-32.0); Mean Corpuscular Hgb Conc. 32.1 g/dL (32.0-36.0); Mean Corpuscular Volume 89.6 fL (80.0-100.0); Monocytes % (auto) 6.9 % (0.0-12.0); Neutrophils # (auto) 12.5 uL; Neutrophils % (auto) 88.1 % (37.0-80.0); Platelet Count (auto) 374 10^3/uL (140-450); Red Blood Cells 3.58 10^6/uL (4.5-5.90); Red Cell Distribution Width 13.6 % (11.8-14.3); White Blood Cell 14.2 10^3/uL (4.4-10.8)
[2018-12-10 15:08] LABS: Albumin 1.7 g/dL (3.4-5.0); Calcium 7.4 mg/dL (8.5-10.1); Potassium 4.2 mmol/L (3.5-5.1)
[2018-12-10 15:11] LABS: BUN/Creatinine Ratio 39.4; Bilirubin, Total 0.4 mg/dL (0.2-1.0); Total Protein 4.5 g/dL (6.4-8.2)
--- NOTE | 2018-12-10 15:45 | NUR ---
BUN 110. Page placed to Dr. Mcintosh through his service.
[2018-12-10 17:00] VITALS: BP 115/77
--- NOTE | 2018-12-10 18:00 | NUR ---
Patient resting quietly, no complaints at this time. Call light in reach. Will continue to monitor.
--- NOTE | 2018-12-10 19:15 | NUR ---
Opening Shift Note Report received from day shift RN. Assumed care of patient. Patient laying in bed awake and alert x3. No S/S of distress/SOB noted and patient denies pain at this time. Abdi patent, draining, and hung below bladder. Legs elevated on pillows. Instructed on POC and to call for assist PRN, will continue to monitor for changes Q1hr and PRN.
--- NOTE | 2018-12-10 20:00 | NUR ---
Stool sample sent to lab
[2018-12-10 22:11] VITALS: BP 121/72
[2018-12-10 23:17] LABS: Anion Gap 13 (5-15); BUN/Creatinine Ratio 36.6; Calcium 7.1 mg/dL (8.5-10.1); Carbon Dioxide 14 mmol/L (21-32); Chloride 110 mmol/L (98-107); GFR African American 31 mL/min; GFR Non-African American 25 mL/min; Glucose 153 mg/dL (74-106); Potassium 3.9 mmol/L (3.5-5.1); Sodium 137 mmol/L (136-145)
[2018-12-10 23:24] LABS: Blood Urea Nitrogen 98 mg/dL (7-18)
--- NOTE | 2018-12-10 23:24 | NUR ---
Critical lab Paged Dr. Mcintosh to inform about critical lab value. BUN 98.
[2018-12-11] VITALS (20 sets, daily range): BP systolic 64–123; BP diastolic 40–85
--- NOTE | 2018-12-11 00:54 | NUR ---
Dr. Mcintosh called back. Informed him of need for rectal tube and of critical lab value. Dr. Mcintosh placed order for rectal tube. Will carry out order.
--- NOTE | 2018-12-11 01:00 | NUR ---
Flexi seal insertion Patient assessed and determined to be in need of flexi seal. Order obtained from MD. Patient educated on flexi seal and reason for insertion. All questions answered. Tube was inserted with clean technique. Patient tolerated well.
[2018-12-11] MEDS: SODIUM CHLORIDE 0.9% 1,000 ML IV SCH ×2 (04:10→11:44)
[2018-12-11 05:59] LABS: Basophils # (auto) 0 uL; Basophils % (auto) 0.1 % (0.0-2.0); Eosinophils # (auto) 0.1 uL; Eosinophils % (auto) 0.9 % (0.0-7.0); Hematocrit 30.5 % (41.0-53.0); Lymphocytes # (auto) 0.6 uL; Lymphocytes % (auto) 4.7 % (10.0-50.0); Mean Corpuscular Hemoglobin 28.9 pg (28.0-32.0); Mean Corpuscular Hgb Conc. 32.7 g/dL (32.0-36.0); Mean Corpuscular Volume 88.3 fL (80.0-100.0); Monocytes # (auto) 0.8 uL; Monocytes % (auto) 6.5 % (0.0-12.0); Neutrophils # (auto) 11.1 uL; Neutrophils % (auto) 87.8 % (37.0-80.0); Platelet Count (auto) 375 10^3/uL (140-450); Red Blood Cells 3.45 10^6/uL (4.5-5.90); Red Cell Distribution Width 13.7 % (11.8-14.3); White Blood Cell 12.6 10^3/uL (4.4-10.8)
[2018-12-11 06:04] LABS: Albumin 1.8 g/dL (3.4-5.0); Anion Gap 13 (5-15); Calcium 7.1 mg/dL (8.5-10.1); Carbon Dioxide 14 mmol/L (21-32); Chloride 114 mmol/L (98-107); Glucose 129 mg/dL (74-106); Sodium 141 mmol/L (136-145)
[2018-12-11 06:06] LABS: GFR African American 33 mL/min; GFR Non-African American 27 mL/min
[2018-12-11 06:09] LABS: Alanine Aminotransferase 11 U/L (16-61); Alkaline Phosphatase 82 U/L (45-117); Aspartate Aminotransferase 11 U/L (15-37); Bilirubin, Total 0.4 mg/dL (0.2-1.0); Total Protein 4.4 g/dL (6.4-8.2)
[2018-12-11 06:12] LABS: Blood Urea Nitrogen 99 mg/dL (7-18)
--- NOTE | 2018-12-11 06:12 | NUR ---
CRITICAL LAB VALUE BUN 99. IS AWARE.
[2018-12-11] MEDS: VANCOMYCIN HCL 125MG/5ML ORAL SOL PO SCH ×4 (06:18→23:13)
[2018-12-11] MEDS: InsuLIN REG 1unit/0.01ml Soln (100units/ml) SC SCH ×4 (06:22→22:00)
[2018-12-11] MEDS: ACCU-CHEK COMFORT CURVE STRIP VI SCH ×4 (06:23→22:00)
--- NOTE | 2018-12-11 07:27 | NUR ---
CLOSING NOTE ENDORSED CARE TO DAY SHIFT RN. PATIENT LAYING IN BED. NO S/S OF DISTRESS/ SOB NOTED. PATIENT DENIES PAIN.
--- NOTE | 2018-12-11 07:35 | NUR ---
Opening Shift Note Assumed care of patient, awake and alert. No S/S of distress/SOB or pain. Instructed on POC and to call for assist PRN, will continue to monitor for changes Q1hr and PRN.
[2018-12-11] MEDS: POTASSIUM CHL 20 Meq TABLET PO SCH ×3 (10:00→23:14)
--- NOTE | 2018-12-11 11:04 | NUR ---
Patient repositioned. Small amount of stool noted around rectal tube site. Patient cleaned, Z-guard to skin. Patient resistant to turning. Gave patient education re need to turn and keep his skin clean.
--- NOTE | 2018-12-11 12:38 | NUR ---
Nutrition consult/assessment Notes please see attached link for complete assessment Est. Needs BW [id number] kcal (25-30 kcal/kgBW), 63-79 gms pro (0.8-1.0 gms/kgBW d/t elev RFT CKD, wounds, severe hypoalbuminemia). Will continue to monitor pertinent labs and reassess nutrient need prn Addendum: 12/11/18 at [address] Amended: Links added.
[2018-12-11 12:57] LABS: Anion Gap 15 (5-15); BUN/Creatinine Ratio 36.8; Calcium 7.2 mg/dL (8.5-10.1); Carbon Dioxide 13 mmol/L (21-32); Chloride 113 mmol/L (98-107); GFR African American 32 mL/min; GFR Non-African American 27 mL/min; Glucose 118 mg/dL (74-106); Potassium 3.9 mmol/L (3.5-5.1); Sodium 141 mmol/L (136-145)
[2018-12-11 13:45] LABS: Blood Urea Nitrogen 95 mg/dL (7-18)
--- NOTE | 2018-12-11 17:10 | NUR ---
Patient turned. Small amount of mushy stool noted around rectal tube. Patient cleaned, Z-Guard to area. Rectal tube patent, draining well. Call light in reach. Will continue to monitor.
[2018-12-11] MEDS: SODIUM BICARBONATE 50ML VIAL 150 ML in D5W 5% 1,000 ML IV SCH ×2 (17:25→22:29)
--- NOTE | 2018-12-11 18:38 | NUR ---
No change. Patient had poor appetite this shift. Turned Q2 hrs. Cleaned PRN.
--- NOTE | 2018-12-11 18:58 | NUR ---
Heart rate 150s. Page placed to Dr. Mcintosh. Report to NOC shift.
--- NOTE | 2018-12-11 19:00 | NUR ---
Received report from ALEAH Matthew. Patient having HR 160-170 per alarm security or surveillance monitor tech. Patient check alert and oriented. Denies any discomfort.
--- NOTE | 2018-12-11 19:10 | NUR ---
Called/paged paged re: HR [id number]. Waiting for call back. Continue care.
--- NOTE | 2018-12-11 19:20 | NUR ---
returned call returned call, updated on patient status and reason for call, orders received. Metoprolol 5mg IV x1. Continue care.
[2018-12-11] MEDS ORDERED: METOPROLOL TARTRATE 1MG/1ML-5ML VIAL IV ONE (19:30)
--- NOTE | 2018-12-11 19:30 | NUR ---
BP 70/46. HR 150. Metoprolol not administered . Brandon michael MD.
[2018-12-11] MEDS ORDERED: SODIUM CHLORIDE 0.9% 500 ML IV ONE (19:45)
--- NOTE | 2018-12-11 19:45 | NUR ---
NS 500 ml IV bolus administered as ordered.
--- NOTE | 2018-12-11 20:00 | NUR ---
returned call Dr. Mcintosh returned call, updated on patient status and reason for call, orders received. For transfer to ICU for Levophed MO morse in AM, cardio consult. Continue care.
--- NOTE | 2018-12-11 20:22 | NUR ---
Blood sugar 116. Sanding Machine Operator Or Tender called back patient can be transferred to ICU. ALEAH Locke to call report to ALEAH Garza.
--- NOTE | 2018-12-11 20:30 | NUR ---
IV bolus NS 500 ML x1 completed.
--- NOTE | 2018-12-11 20:40 | NUR ---
Report given to [facility] ALEAH Esparza.
[2018-12-11] MEDS ORDERED: AMIODARONE HCL 150 MG in D5W 5% 100 ML IV ONE (20:45)
[2018-12-11] MEDS ORDERED: AMIODARONE HCL 900 MG in DEXTROSE 500 ML IV SCH (20:50)
--- NOTE | 2018-12-11 20:50 | NUR ---
Received report from Rossy BULLARD.
--- NOTE | 2018-12-11 20:55 | NUR ---
Transferred patient to [facility] Bed 264 .
--- NOTE | 2018-12-11 21:00 | NUR ---
Admit to [facility]ENG NATALIE Lim transferred to [facility] via bed on air brake rigger, and portable 02. Patient connected to unit monitoring and oxygen, and weighed by bedscale. Patient oriented to Vilma Britton, primary RN, unit, room, bed, and unit policies regarding patient care and visiting hours. All questions and concerns addressed, patient verbalized understanding. BP 74/45, HR 163.
[2018-12-11] MEDS ORDERED: DILTIAZEM 125mg/125ml BAG KIT 125 ML IV SCH (21:08)
--- NOTE | 2018-12-11 21:08 | NUR ---
CARDIOLOGY: S/W Dr. Neal regarding pt's condition/status. Received new orders regarding A-Fib w/ RVR treatment. OK to transfer pt to [facility] per Dr. Neal. Current BP 94/47.
[2018-12-11] MEDS ORDERED: DIGOXIN (250MCG/ML) 2 ML AMPULE ONE (21:12)
[2018-12-11] MEDS ORDERED: DILTIAZEM HCL 25 MG/5 ML VIAL IV ONE ×4 (21:13→21:39)
[2018-12-11] MEDS ORDERED: DIGOXIN (250MCG/ML) 2 ML AMPULE IV ONE ×2 (21:15→22:15)
--- NOTE | 2018-12-11 21:20 | NUR ---
Digoxin 0.5mg given IVP. HR 156
--- NOTE | 2018-12-11 21:24 | NUR ---
Cardizem 10mg given IVP.
--- NOTE | 2018-12-11 21:50 | NUR ---
Cardizem 5mg/hr gtt started. BP 153, HR sys 66.
[2018-12-11 22:13] LABS: Anion Gap 15 (5-15); BUN/Creatinine Ratio 36.7; Calcium 7.1 mg/dL (8.5-10.1); Carbon Dioxide 11 mmol/L (21-32); Chloride 115 mmol/L (98-107); GFR African American 33 mL/min; GFR Non-African American 27 mL/min; Glucose 138 mg/dL (74-106); Sodium 141 mmol/L (136-145)
--- NOTE | 2018-12-11 22:13 | NUR ---
Dr. Neal paged for BP 88/56, new order of Bolus 1 liter. Will continue to monitor. Pt on Cardizem 5mg drip at this time. Dig 0.5mg given as well as Cardizem 10mg IVP.
[2018-12-11] MEDS ORDERED: SODIUM CHLORIDE 0.9% 1,000 ML IV ONE (22:15)
--- NOTE | 2018-12-11 22:20 | NUR ---
Cardizem drip increased by 5mg to 10mg/hr. HR 137, BP 84/55. Asymptomatic at this time. Will continue to monitor.
[2018-12-11 22:25] LABS: Blood Urea Nitrogen 92 mg/dL (7-18)
--- NOTE | 2018-12-11 22:35 | NUR ---
2nd dose Digoxin 0.5mg given IVP. Pt tolerated well. Has not converted yet at this time. Will continue to monitor.
--- NOTE | 2018-12-11 22:59 | NUR ---
Pt now SR 98, will continue to monitor.
[2018-12-12] VITALS (23 sets, daily range): BP systolic 94–128; BP diastolic 48–77
--- NOTE | 2018-12-12 02:19 | NUR ---
Pt remains stable. HR 89 in SR, BP 123/65. Cardizem drip still infusing at 10mg/hr. Bicarb infusing at 100ml/hr. Stable. Resting with eyes closed. Will continue to monitor.
[2018-12-12] MEDS ORDERED: AMIODARONE HCL 900 MG in DEXTROSE 500 ML IV SCH (02:50)
[2018-12-12 06:07] LABS: Anion Gap 14 (5-15); BUN/Creatinine Ratio 38.7; Calcium 6.9 mg/dL (8.5-10.1); Carbon Dioxide 13 mmol/L (21-32); Chloride 116 mmol/L (98-107); GFR African American 36 mL/min; GFR Non-African American 30 mL/min; Glucose 165 mg/dL (74-106); Potassium 3.9 mmol/L (3.5-5.1); Sodium 143 mmol/L (136-145)
[2018-12-12 06:11] LABS: Blood Urea Nitrogen 91 mg/dL (7-18)
[2018-12-12] MEDS: InsuLIN REG 1unit/0.01ml Soln (100units/ml) SC SCH ×4 (07:00→22:07)
[2018-12-12] MEDS: ACCU-CHEK COMFORT CURVE STRIP VI SCH ×4 (07:07→22:02)
--- NOTE | 2018-12-12 07:30 | NUR ---
Dr Mclaughlin at bedside, updated on patient's status. Patient seen and examined. Will carry out new orders.
--- NOTE | 2018-12-12 08:01 | NUR ---
Summary of tx and conversion. 0 Digoxin 0.5mg given, Afib with RVR at 156. 2123 Cardizem 10mg given, no conversion. 0 Cardizem 5mg/hr gtt started. 0 Cardizem 10mg/hr titrated. 0 2nd dose of Digoxin 0.5mg given as ordered, still Afib with RVR. 2258 pt converted to SR 98. EKG result 2332 NSR 99bpm. 0640 Cardizem titrated to 5mg/hr gtt. Pt remains stable. Report given, care endorsed.
--- NOTE | 2018-12-12 08:15 | NUR ---
Opening Shift Note Assumed care of patient, awake and alert. No S/S of distress/SOB or pain. Cardizem drip running at 5mg/hr, HR 80, BP 107/58. See interventions for complete assessment. Patient on specialty mattress, bed locked on low position, side rails up x2, bed alarms on at all times, call soriano within reach, instructed on POC and to call for assist PRN, will continue to monitor for changes Q1hr and PRN.
[2018-12-12] MEDS: VANCOMYCIN HCL 125MG/5ML ORAL SOL PO SCH ×3 (08:24→17:56)
--- NOTE | 2018-12-12 09:00 | NUR ---
Patient refusing to eat breakfast, states " I don't eat those stuff." Called dietary for sour dough toast and yogurt per patient request.
--- NOTE | 2018-12-12 09:30 | NUR ---
Placed another call to dietary, voicemail, regarding patient's toast and yogurt, awaiting delivery.
[2018-12-12] MEDS: POTASSIUM CHL 20 Meq TABLET PO SCH ×2 (10:25→22:02)
--- NOTE | 2018-12-12 10:45 | NUR ---
Dr Mcintosh at bedside, updated on patient's status. Patient seen and examined. No new orders at this time.
[2018-12-12] MEDS: CHOLESTYRAMINE 4 GM POWDER GT SCH ×2 (11:27→23:41)
--- NOTE | 2018-12-12 11:29 | NUR ---
Accucheck 158mg/dl, 2 units of Insulin held due to patient's poor oral intake. Will continue to monitor.
--- NOTE | 2018-12-12 11:45 | NUR ---
Paged Dr Neal to give an update on patient's status. Awaiting call back.
--- NOTE | 2018-12-12 12:19 | NUR ---
Spoke to Dr Neal over the phone, updated on patient's status. Informed of patient's HR 70 to 80's, SBP 110. Received telephone order to discontinue Cardizem drip and start patient on Cardizem PO. Telephone orders read back and verified. Will carry out.
[2018-12-12] MEDS ORDERED: DILTIAZEM HCL 120MG ER CAP PO ONE (12:30)
[2018-12-12] MEDS: SODIUM BICARBONATE 50ML VIAL 150 ML in D5W 5% 1,000 ML IV SCH (13:39)
--- NOTE | 2018-12-12 13:50 | NUR ---
Dr Haney at bedside, updated on patient's status. Patient seen and examined. No new orders at this time.
--- NOTE | 2018-12-12 15:50 | NUR ---
Perineal care rendered, skin integrity assessed for any changes. Linens changed. Patient repositioned for comfort.
--- NOTE | 2018-12-12 20:00 | NUR ---
SHIFT OPENING NOTE RECEIVED PATIENT AWAKE, ALERT AND ORIENTED X4. NO SOB, DISTRESS OR PAIN NOTED. ON 2L N/C. WEBSTER CATH AND FLEXISEAL NOTED. PATIENT IS HAVING DIARRHEA. BICARB DRIP INFUSION AT 100ML/H. PHYSICAL ASSESSMENT COMPLETED, SEE INTERVENTIONS. INSTRUCTED ON POC AND TO CALL FOR ASSIST NEEDED. BED IS IN THE LOWEST POSITION WITH SIDE RAILS UP X2. CALL LIGHT IS WITHIN REACH.
[2018-12-13] VITALS: BP 115/52
[2018-12-13] MEDS: VANCOMYCIN HCL 125MG/5ML ORAL SOL PO SCH ×4 (01:20→18:00)
[2018-12-13] MEDS: SODIUM BICARBONATE 50ML VIAL 150 ML in D5W 5% 1,000 ML IV SCH ×2 (01:20→14:15)
[2018-12-13 04:00] VITALS: BP 131/61
--- NOTE | 2018-12-13 05:20 | NUR ---
MORNING HYGEINE CARE FULL BED BATH BATH PERFORMED USING CHG WIPES. PARTIAL LINEN CHANGE DONE. GOWN CHANGED. SKIN REASSESSED AT THIS TIME. NO CHANGED. ZGUARD AND OPTIFOAM PLACED ON SACRAL WOUND. PATIENT REPOSITIONED FOR COMFORT. TOLERATED IT WELL.
[2018-12-13 05:48] LABS: Basophils # (auto) 0 uL; Basophils % (auto) 0.1 % (0.0-2.0); Eosinophils # (auto) 0.1 uL; Eosinophils % (auto) 0.5 % (0.0-7.0); Hematocrit 30.8 % (41.0-53.0); Hemoglobin 9.9 g/dL (13.5-17.5); Lymphocytes # (auto) 0.7 uL; Lymphocytes % (auto) 5.3 % (10.0-50.0); Mean Corpuscular Hemoglobin 28.6 pg (28.0-32.0); Mean Corpuscular Hgb Conc. 32.3 g/dL (32.0-36.0); Mean Corpuscular Volume 88.6 fL (80.0-100.0); Monocytes # (auto) 0.6 uL; Monocytes % (auto) 5.1 % (0.0-12.0); Neutrophils # (auto) 11.3 uL; Platelet Count (auto) 340 10^3/uL (140-450); Red Blood Cells 3.47 10^6/uL (4.5-5.90); Red Cell Distribution Width 13.7 % (11.8-14.3); White Blood Cell 12.7 10^3/uL (4.4-10.8)
[2018-12-13 06:19] LABS: BUN/Creatinine Ratio 36.3; Calcium 7.4 mg/dL (8.5-10.1); Potassium 4.2 mmol/L (3.5-5.1)
[2018-12-13] MEDS: ACCU-CHEK COMFORT CURVE STRIP VI SCH ×4 (06:38→21:37)
[2018-12-13] MEDS: InsuLIN REG 1unit/0.01ml Soln (100units/ml) SC SCH ×4 (06:39→21:39)
--- NOTE | 2018-12-13 06:55 | NUR ---
END OF SHIFT PATIENT LAYING IN BED SLEEPING. NO SOB, DISTRESS OR PAIN NOTED. WILL GIVE REPORT AND ENDORSE CARE TO THE DAY SHIFT RN.
[2018-12-13 07:50] VITALS: BP 130/63
--- NOTE | 2018-12-13 08:00 | NUR ---
Opening Shift Note Assumed care of patient, awake and alert. Patient A&Ox4. Patient on the monitor, VS WNL. Patient on room air saturation at 99%. IV left wrist 20G running D5 with bicarb at 100ml/hr, right hand 24G saline locked, right forearm 20G saline locked. All IV's patent, clean, dry, and intact. Abdi to gravity, light nick urine noted. Rectal tube in place and to gravity, no leaking noted from around the tube. SCD bilateral. Patient has anasarca. 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 Mcintosh and or Dr. Saucedo. No S/S of distress/SOB or pain. Instructed on POC and to call for assist PRN. Will continue to monitor.
--- NOTE | 2018-12-13 08:45 | NUR ---
Patient refused breakfast tray. Will continue to monitor.
[2018-12-13] MEDS: POTASSIUM CHL 20 Meq TABLET PO SCH ×2 (10:00→21:36)
--- NOTE | 2018-12-13 10:00 | NUR ---
Medication dosages, usages, and side effects explained to Patient. Patient verbalized understanding. Will continue to monitor.
[2018-12-13] MEDS: DILTIAZEM HCL 120MG ER CAP PO SCH (10:51)
[2018-12-13] MEDS: CHOLESTYRAMINE 4 GM POWDER GT SCH ×2 (10:51→23:23)
--- NOTE | 2018-12-13 11:30 | NUR ---
Patient resting at this time. Patient denies any pain. No S/S of SOB or distress noted. Will continue to monitor.
[2018-12-13 11:50] VITALS: BP 119/62
--- NOTE | 2018-12-13 12:30 | NUR ---
Tried to assist patient to eat lunch. Patient refused. Will continue to monitor.
--- NOTE | 2018-12-13 14:30 | NUR ---
Patient resting at this time. Patient denies any pain. No S/S of SOB or distress noted. Will continue to monitor.
--- NOTE | 2018-12-13 15:40 | NUR ---
Dr. Haney at bedside.
[2018-12-13 15:50] VITALS: BP 109/52
[2018-12-13] MEDS ORDERED: FUROSEMIDE 40 MG/4 ML VIAL IV ONE (16:00)
--- NOTE | 2018-12-13 16:30 | NUR ---
Patient resting at this time. Patient denies any pain. No S/S of SOB or distress noted. Will continue to monitor.
[2018-12-13] MEDS: ALBUMIN 25% 100 ML IV SCH ×2 (17:24→23:25)
[2018-12-13] MEDS: FUROSEMIDE INJECTION 250 MG in D5W 5% 225 ML IV SCH (17:25)
[2018-12-13] MEDS ORDERED: Glucerna Carbsteady SHAKE Stawberry 8oz PO SCH (18:00)
--- NOTE | 2018-12-13 18:30 | NUR ---
End of shift note: Patient sitting up in bed eating dinner with assistance from Neftali [place]. Patient A&Ox4. Patient on the monitor, VS WNL. Patient on room air saturation at 99%. IV left wrist 20G running Lasix at 10ml/hr, right forearm 20G saline locked. both IV's patent, clean, dry, and intact. Abdi to gravity, light nick urine noted. Rectal tube in place and to gravity, no leaking noted from around the tube. SCD bilateral. Patient has anasarca. No S/S of distress/SOB or pain. Bed locked and in the lowest position, side rails up x2, call light with in reach. Report to be given to raftsman RN. Will continue to monitor.
--- NOTE | 2018-12-13 18:50 | NUR ---
Dr. Mcintosh at bedside.
[2018-12-13] MEDS: Glucerna Carbsteady SHAKE Vanilla 8oz PO SCH (19:02)
[2018-12-13 19:48] VITALS: BP 117/52
--- NOTE | 2018-12-13 20:00 | NUR ---
SHIFT OPENING NOTE RECEIVED PATIENT AWAKE, ALERT AND ORIENTED X4. NO SOB, DISTRESS OR PAIN NOTED. ON ROOM AIR. WEBSTER CATH AND FLEXISEAL NOTED. PATIENT IS HAVING DIARRHEA. LASIX DRIP AT 10 ML/H. PHYSICAL ASSESSMENT COMPLETED, SEE INTERVENTIONS. INSTRUCTED ON POC AND TO CALL FOR ASSIST NEEDED. BED IS IN THE LOWEST POSITION WITH SIDE RAILS UP X2. CALL LIGHT IS WITHIN REACH.
[2018-12-13] MEDS: MIRTAZAPINE 30 MG TAB PO SCH (21:36)
[2018-12-14] VITALS: BP 126/59
[2018-12-14] MEDS: VANCOMYCIN HCL 125MG/5ML ORAL SOL PO SCH ×5 (00:38→18:10)
[2018-12-14 04:00] VITALS: BP 138/61
--- NOTE | 2018-12-14 05:00 | NUR ---
MORNING HYGIENE CARE FULL BED BATH PERFORMED USING CHG WIPES. GOWN CHANGED. SMALL LEAK IN RECTAL TUBE. VINEET CARE DONE. FULL LINEN CHANGE. SKIN REASSESSED AT THIS TIME. NO NEW CHANGES. PATIENT REPOSITIONED FOR COMFORT. TOLERATED IT WELL.
[2018-12-14] MEDS: ACCU-CHEK COMFORT CURVE STRIP VI SCH ×4 (06:22→22:02)
[2018-12-14] MEDS: InsuLIN REG 1unit/0.01ml Soln (100units/ml) SC SCH ×4 (06:22→22:02)
--- NOTE | 2018-12-14 06:50 | NUR ---
END OF SHIFT PATIENT IS LAYING IN BED WITH EYES CLOSED. NO SOB, DISTRESS OR PAIN NOTED. ON LASIX DRIP AT 10ML/H. WILL GIVE REPORT AND ENDORSE CARE TO THE DAY SHIFT RN.
[2018-12-14 08:00] VITALS: BP 119/63
[2018-12-14] MEDS: Glucerna Carbsteady SHAKE Vanilla 8oz PO SCH ×4 (08:00→18:10)
--- NOTE | 2018-12-14 08:00 | NUR ---
Opening Shift Note Assumed care of patient, awake and alert. Spoke with patient about code status. Patient states"I want everything done." Patient remains full code. Patient A&Ox4. Patient on the monitor, VS WNL. Patient on room air saturation at 99%. IV left wrist 20G saline locked and right forearm 20G running lasix at 10ml/hr. both IV's patent, clean, dry, and intact. Abdi to gravity, light nick urine noted. Rectal tube in place and to gravity, no leaking noted from around the tube. SCD bilateral. Patient has anasarca. Bed locked and in the lowest position, side rails up x2, call light with in reach. Patient instructed on POC. Will continue to monitor.
--- NOTE | 2018-12-14 08:15 | NUR ---
Dr. Saucedo at bedside.
--- NOTE | 2018-12-14 08:30 | NUR ---
Patient refused breakfast tray. Will continue to monitor.
[2018-12-14] MEDS: POTASSIUM CHL 20 Meq TABLET PO SCH ×2 (10:00→22:02)
--- NOTE | 2018-12-14 10:00 | NUR ---
Medication dosages, usages, and side effects explained to Patient. Patient verbalized understanding. Will continue to monitor.
[2018-12-14] MEDS: DILTIAZEM HCL 120MG ER CAP PO SCH (10:51)
[2018-12-14] MEDS: ALBUMIN 25% 100 ML IV SCH (10:51)
--- NOTE | 2018-12-14 11:00 | NUR ---
Dr. Haney at bedside.
--- NOTE | 2018-12-14 11:15 | NUR ---
Patient cleaned. Leading noted from around rectal tube. Tube repositioned and cuff re-inflated, Patient cleaned and new linen placed. Will continue to monitor.
[2018-12-14 12:00] VITALS: BP 104/53
[2018-12-14 12:02] LABS: Basophils # (auto) 0 uL; Basophils % (auto) 0.1 % (0.0-2.0); Eosinophils # (auto) 0.1 uL; Eosinophils % (auto) 0.6 % (0.0-7.0); Hematocrit 28.6 % (41.0-53.0); Hemoglobin 9.6 g/dL (13.5-17.5); Lymphocytes # (auto) 0.6 uL; Lymphocytes % (auto) 5.7 % (10.0-50.0); Mean Corpuscular Hemoglobin 29.2 pg (28.0-32.0); Mean Corpuscular Hgb Conc. 33.4 g/dL (32.0-36.0); Mean Corpuscular Volume 87.4 fL (80.0-100.0); Monocytes # (auto) 0.7 uL; Monocytes % (auto) 6.3 % (0.0-12.0); Neutrophils # (auto) 9.1 uL; Neutrophils % (auto) 87.3 % (37.0-80.0); Nucleated Red Blood Cells % 0.1 %; Platelet Count (auto) 314 10^3/uL (140-450); Red Blood Cells 3.28 10^6/uL (4.5-5.90); Red Cell Distribution Width 13.5 % (11.8-14.3); White Blood Cell 10.4 10^3/uL (4.4-10.8)
--- NOTE | 2018-12-14 12:18 | NUR ---
Nutrition consult/Follow-up Notes Wt.: 91.3 kg Pt was awake but not wanting to talk wanted to sleep with no family by bedside. 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 per records pt active psych consult. pt is currently on CCHO 60 gm low fiber low residue diet with poor PO of < 50% x 6 per RN doc as pt refusing to eat Est. Needs BW [id number] kcal (25-30 kcal/kgBW), 63-79 gms pro (0.8-1.0 gms/kgBW d/t elev RFT CKD, wounds, severe hypoalbuminemia). Will continue to monitor pertinent labs and reassess nutrient need prn Labs: BUN 85 H, CREAT 2.34 H, CA 7.4 L, GLU 178 H Skin: Aj scale 11, high risk pt with multiple pressure ulcers per RN doc. refer to notes for details GI: Pt had 500 ml BM today diarr per academic specialist. PES: Altered nutrition related lab values r/t acute/chronic medical condition aeb elev RFT hypocalcemia, severe hypoalb, hyperglycemia Inadequate PO intake r/t current GI condition aeb pt`s with recorded PO < 75% and with diarr Will continue to monitor PO intake, skin status, pertinent labs and weight trend. F/u in 3-5 days. Rec.: 1.) consider PN support to meet > 75% of needs if pt continues to have poor PO and diarr. 2) refer to CDE on DC. 3) consider renal specific 70 gm protein 2 gm na long with current diet. 4) consider Glucerna 1 carton bid. 5) consider MVI.C bid. 6) continue current plan of care
[2018-12-14 12:19] LABS: Calcium 7.9 mg/dL (8.5-10.1); Potassium 4.1 mmol/L (3.5-5.1)
[2018-12-14] MEDS: CHOLESTYRAMINE 4 GM POWDER GT SCH ×2 (12:24→23:33)
--- NOTE | 2018-12-14 13:00 | NUR ---
Patient resting at this time. No S/S of pain/SOB or distress noted. Will continue to monitor.
--- NOTE | 2018-12-14 15:00 | NUR ---
Patient still leaking stool from around rectal tube. New rectal tube placed. No leaking noted from tube. Rectal tube bag to gravity. Patient cleaned and new linen placed. Patient Left wrist IV leaking from site. IV catheter intact upon removal, pressure dressing placed. New IV started right forearm 22G saline locked, patent, clean, dry, and intact. Patient now resting at this time. Patient denies any pain or distress at this time. Will continue to monitor.
[2018-12-14] MEDS: FUROSEMIDE INJECTION 250 MG in D5W 5% 225 ML IV SCH (15:30)
[2018-12-14 16:00] VITALS: BP 115/67
--- NOTE | 2018-12-14 16:45 | NUR ---
Patient resting at this time. No S/S of pain/SOB or distress noted. Will continue to monitor.
--- NOTE | 2018-12-14 18:30 | NUR ---
End of shift note: Patient sitting up in bed eating dinner with assistance from Shannon [place]. Patient A&Ox4. Patient on the monitor, VS WNL. Patient on room air saturation at 98%. IV right forearm 20G saline locked and 22G right forearm running Lasix at 10ml/hr, both IV's patent, clean, dry, and intact. Abdi to gravity, light nick urine noted. Rectal tube in place and to gravity, no leaking noted from around the tube. SCD bilateral. No S/S of distress/SOB or pain. Bed locked and in the lowest position, side rails up x2, call light with in reach. Report to be given to shift stacker RN. Will continue to monitor.
[2018-12-14 20:00] VITALS: BP 117/64
--- NOTE | 2018-12-14 20:00 | NUR ---
SHIFT OPENING NOTE RECEIVED PATIENT AWAKE, ALERT AND ORIENTED X4. NO SOB, DISTRESS OR PAIN NOTED. ON ROOM AIR. WEBSTER CATH AND FLEXISEAL NOTED. FLEXISEAL LEAKING. WILL READJUST AND CLEAN PATIENT RIGHT NOW. PATIENT IS HAVING DIARRHEA. LASIX DRIP AT 10 ML/H. PHYSICAL ASSESSMENT COMPLETED, SEE INTERVENTIONS. PATIENT JUST FINISHED TELE PSYCH. INSTRUCTED ON POC AND TO CALL FOR ASSIST NEEDED. BED IS IN THE LOWEST POSITION WITH SIDE RAILS UP X2. CALL LIGHT IS WITHIN REACH.
--- NOTE | 2018-12-14 22:00 | NUR ---
FLEXISEAL LEAKING FULL BED CHANGE DONE. VINEET CARE PERFORMED. 15 CC OF FLUID PLACED IN FLEXISEAL FOR LEAK. PATIENT REPOSITIONED FOR COMFORT. TOLERATED IT WELL.
[2018-12-14] MEDS: MIRTAZAPINE 30 MG TAB PO SCH (22:02)
[2018-12-15] VITALS: BP 123/68
--- NOTE | 2018-12-15 00:10 | NUR ---
ROUNDS PATIENT QUIETLY LAYING IN BED WATCHING TV. NO SOB, DISTRESS OR PAIN NOTED. WILL CONTINUE TO CLOSELY MONITOR.
[2018-12-15] MEDS: VANCOMYCIN HCL 125MG/5ML ORAL SOL PO SCH ×4 (01:14→19:30)
[2018-12-15 04:00] VITALS: BP 110/65
[2018-12-15] MEDS: ACCU-CHEK COMFORT CURVE STRIP VI SCH ×4 (05:15→22:14)
[2018-12-15] MEDS: InsuLIN REG 1unit/0.01ml Soln (100units/ml) SC SCH ×4 (05:15→22:00)
--- NOTE | 2018-12-15 05:20 | NUR ---
MORNING CARE RE-ASSESSED FLEXISEAL FOR LEAKING. SMALL LEAK NOTED. VINEET CARE PERFORMED USING CHG WIPES AND SOAPY WASHCLOTHS. ZGUARD APPLIED TO PERIAREA AND SACRUM. NEW OPTIFOAM PLACED ON SACRUM. PATIENT REPOSITIONED FOR COMFORT. TOLERATED IT WELL.
[2018-12-15 05:49] LABS: Basophils # (auto) 0 uL; Basophils % (auto) 0.2 % (0.0-2.0); Eosinophils # (auto) 0.1 uL; Eosinophils % (auto) 0.7 % (0.0-7.0); Hematocrit 30.7 % (41.0-53.0); Hemoglobin 10.1 g/dL (13.5-17.5); Lymphocytes # (auto) 1.1 uL; Lymphocytes % (auto) 8.1 % (10.0-50.0); Mean Corpuscular Hemoglobin 28.8 pg (28.0-32.0); Mean Corpuscular Hgb Conc. 32.8 g/dL (32.0-36.0); Mean Corpuscular Volume 87.7 fL (80.0-100.0); Monocytes % (auto) 7.4 % (0.0-12.0); Neutrophils % (auto) 83.6 % (37.0-80.0); Nucleated Red Blood Cells % 0.1 %; Platelet Count (auto) 313 10^3/uL (140-450); Red Cell Distribution Width 13.5 % (11.8-14.3); White Blood Cell 13.1 10^3/uL (4.4-10.8)
[2018-12-15 06:06] LABS: Calcium 7.7 mg/dL (8.5-10.1); Potassium 4.5 mmol/L (3.5-5.1)
[2018-12-15 06:22] LABS: BUN/Creatinine Ratio 30.6
--- NOTE | 2018-12-15 06:47 | NUR ---
END OF SHIFT PATIENT IS QUIETLY LAYING IN BED WITH EYES CLOSED. NO SOB, DISTRESS OR PAIN NOTED. ON ROOM AIR. LASIX DRIP AT 10 ML/H. WILL GIVE REPORT AND ENDORSE CARE TO THE DAY SHIFT RN.
[2018-12-15] MEDS: Glucerna Carbsteady SHAKE Vanilla 8oz PO SCH ×5 (08:00→18:00)
--- NOTE | 2018-12-15 08:00 | NUR ---
Opening Shift Note Assumed care of patient, awake and alert. Patient A&Ox4. Patient on the monitor, VS WNL. Patient on room air saturation at 99%. IV right forearm 22G running Lasix at 10ml/hr and right forearm 20G saline locked. Both IV's patent, clean, dry, and intact. Abdi to gravity, light nick urine noted. Rectal tube in place and to gravity, no leaking noted from around the tube. SCD bilateral. No S/S of distress/SOB or pain. Bed locked and in the lowest position, side rails up x2, call light with in reach. Instructed on POC and to call for assist PRN. Will continue to monitor.
--- NOTE | 2018-12-15 08:30 | NUR ---
Patient refused breakfast tray. Will continue to monitor.
--- NOTE | 2018-12-15 09:45 | NUR ---
Dr. Haney at bedside.
[2018-12-15] MEDS: POTASSIUM CHL 20 Meq TABLET PO SCH ×2 (10:00→22:00)
--- NOTE | 2018-12-15 10:00 | NUR ---
Medication dosages, usages, and side effects explained to Patient. Patient verbalized understanding. Will continue to monitor.
[2018-12-15] MEDS: CHOLESTYRAMINE 4 GM POWDER GT SCH ×2 (11:23→23:00)
[2018-12-15] MEDS: DILTIAZEM HCL 120MG ER CAP PO SCH (11:24)
--- NOTE | 2018-12-15 11:30 | NUR ---
New brown place per Dr. Haney orders. Brown to gravity, yellow urine noted in the bag. Will continue to monitor.
[2018-12-15 12:00] VITALS: BP 108/66
--- NOTE | 2018-12-15 14:00 | NUR ---
Patient resting at this time. No S/S of pain/SOB or distress noted. Will continue to monitor.
[2018-12-15 15:56] VITALS: BP 118/51
--- NOTE | 2018-12-15 16:00 | NUR ---
Patient cleaned. Leading noted from around rectal tube. Tube repositioned and cuff re-inflated, Patient cleaned and new linen placed. Will continue to monitor.
[2018-12-15] MEDS: FUROSEMIDE INJECTION 250 MG in D5W 5% 225 ML IV SCH (16:30)
--- NOTE | 2018-12-15 18:30 | NUR ---
End of shift note: Patient sitting up in bed eating dinner with assistance from Shannon [place]. Patient A&Ox4. Patient on the monitor, VS WNL. Patient on room air saturation at 98%. IV right forearm 20G saline locked and 22G right forearm running Lasix at 10ml/hr, both IV's patent, clean, dry, and intact. Abdi to gravity, light nick urine noted. Rectal tube in place and to gravity, no leaking noted from around the tube. SCD bilateral. No S/S of distress/SOB or pain. Bed locked and in the lowest position, side rails up x2, call light with in reach. Report to be given to shift superintendent RN. Will continue to monitor.
--- NOTE | 2018-12-15 19:15 | NUR ---
OPENING SHIFT RECEIVED REPORT FROM DAY SHIFT RN. ASSUMED CARE OF PATIENT. PATIENT IN BED WATCHING TV WITH NO SIGNS OR SYMPTOMS OF SOB, PAIN OR DISTRESS. CURRENTLY ON ROOM AIR, 02 SAT - 98%. WEBSTER AND FLEXISEAL HUNG TO GRAVITY ON BED RAIL. RIGHT FOREARM IV - CLEAN/DRY/INTACT. UPDATED PATIENT ON PLAN OF CARE. SCD'S PLACED BILATERALLY PLACED ON LOWER EXTREMITIES. REPOSITIONED FOR COMFORT. BED IN LOWEST POSITION, SIDE RAILS UP X2, CALL LIGHT WITHIN REACH. WILL CONTINUE TO MONITOR.
[2018-12-15 20:00] VITALS: BP 90/61
--- NOTE | 2018-12-15 20:32 | NUR ---
DR. GARZA AT BEDSIDE.
[2018-12-15] MEDS: MIRTAZAPINE 30 MG TAB PO SCH (22:07)
[2018-12-16] VITALS (7 sets, daily range): BP systolic 96–123; BP diastolic 54–65
--- NOTE | 2018-12-16 00:10 | NUR ---
ROUNDS PATIENT IN BED WITH NO SIGNS OR SYMPTOMS OF SOB, PAIN OR DISTRESS. CURRENTLY ON ROOM AIR, 02 SAT - 98%. REPOSITIONED FOR COMFORT. BED IN LOWEST POSITION, SIDE RAILS UP X2, CALL LIGHT WITHIN REACH. WILL CONTINUE TO MONITOR.
[2018-12-16] MEDS: VANCOMYCIN HCL 125MG/5ML ORAL SOL PO SCH ×4 (00:23→17:50)
[2018-12-16] MEDS: InsuLIN REG 1unit/0.01ml Soln (100units/ml) SC SCH ×5 (00:23→22:00)
--- NOTE | 2018-12-16 04:02 | NUR ---
MORNING CARE PATIENT REFUSED MORNING CARE, LINEN CHANGE AND GOWN CHANGE AT THIS TIME. REPOSITIONED FOR COMFORT. CLEAN LINEN LEFT AT BEDSIDE. BED IN LOWEST POSITION, SIDE RAILS UP X2, CALL LIGHT WITHIN REACH. WILL CONTINUE TO MONITOR.
--- NOTE | 2018-12-16 05:00 | NUR ---
MORNING CARE MORNING CARE PERFORMED WITH CHG WIPES AND WASH CLOTHS TO THE FACE. PARTIAL LINEN CHANGE AND GOWN CHANGED. FLEXISEAL CONTINUES TO LEAK. REPOSITIONED FOR COMFORT. SKIN REASSESSED AT THIS TIME. DARIN HUNG TO GRAVITY ON BED RAIL. BED IN LOWEST POSITION, SIDE RAILS UP X2, CALL LIGHT WITHIN REACH. WILL CONTINUE TO MONITOR.
[2018-12-16] MEDS: ACCU-CHEK COMFORT CURVE STRIP VI SCH ×4 (06:23→22:34)
--- NOTE | 2018-12-16 06:30 | NUR ---
END OF SHIFT PATIENT IN BED SLEEPING WITH NO SIGNS OR SYMPTOMS OF SOB, PAIN OR DISTRESS. CURRENTLY ON ROOM AIR, 02 SAT 98%. REPOSITIONED FOR COMFORT. WEBSTER AND FLEXISEAL HUNG TO GRAVITY ON BED RAIL. RIGHT FOREARM IV - CLEAN/DRY/INTACT. REPOSITIONED FOR COMFORT. BED IN LOWEST POSITION, SIDE RAILS UP X2, CALL LIGHT WITHIN REACH. WILL ENDORSE CARE TO DAY SHIFT RN.
[2018-12-16 06:53] LABS: BUN/Creatinine Ratio 30.3; Basophils # (auto) 0 uL; Basophils % (auto) 0.2 % (0.0-2.0); Calcium 7.6 mg/dL (8.5-10.1); Eosinophils # (auto) 0.1 uL; Eosinophils % (auto) 0.8 % (0.0-7.0); Hematocrit 27.9 % (41.0-53.0); Hemoglobin 9.1 g/dL (13.5-17.5); Lymphocytes % (auto) 8.3 % (10.0-50.0); Mean Corpuscular Hemoglobin 28.2 pg (28.0-32.0); Mean Corpuscular Hgb Conc. 32.7 g/dL (32.0-36.0); Mean Corpuscular Volume 86.2 fL (80.0-100.0); Monocytes # (auto) 0.8 uL; Monocytes % (auto) 6.4 % (0.0-12.0); Neutrophils # (auto) 10.3 uL; Neutrophils % (auto) 84.3 % (37.0-80.0); Nucleated Red Blood Cells % 0.2 %; Platelet Count (auto) 287 10^3/uL (140-450); Red Blood Cells 3.24 10^6/uL (4.5-5.90); Red Cell Distribution Width 13.6 % (11.8-14.3); White Blood Cell 12.2 10^3/uL (4.4-10.8)
--- NOTE | 2018-12-16 07:30 | NUR ---
RECEIVED PATIENT SEMI FOWLERS IN BED, WAKEN BY NAME BEING CALLED, A/O TIMES 4, LASIX DRIP INFUSING INTO THE RFA AT 10ML/HR BY THE IV PUMP, WEBSTER TO GRAVITY, SCD'S TO JON LEGS, FLEXI SEAL TO THE RECTUM, ON SPECIALTY MATTRESS,
[2018-12-16] MEDS: Glucerna Carbsteady SHAKE Vanilla 8oz PO SCH ×5 (08:00→17:49)
--- NOTE | 2018-12-16 08:00 | NUR ---
DR ORTEGA IN TO SEE THE PATIENT AND D/CE'D THE DERECK SINGER
--- NOTE | 2018-12-16 08:30 | NUR ---
TRIED TO FEED PATIENT BREAKFAST, BUT HE REFUSED
--- NOTE | 2018-12-16 09:30 | NUR ---
SITTING UP IN BED WITH EYES CLOSED
[2018-12-16] MEDS: POTASSIUM CHL 20 Meq TABLET PO SCH ×2 (10:48→22:33)
[2018-12-16] MEDS: METOLAZONE 5 MG TAB PO SCH (10:49)
[2018-12-16] MEDS: DILTIAZEM HCL 120MG ER CAP PO SCH (10:49)
--- NOTE | 2018-12-16 10:50 | NUR ---
EXPLAIN MEDICATIONS TO THE PATIENT REGARDING THE DOSAGE,USAGE, AND THE SIDE EFFECTS, VERBALIZED THAT HE UNDERSTOOD AND MEDS GIVEN ORDERED
[2018-12-16] MEDS: CHOLESTYRAMINE 4 GM POWDER GT SCH ×2 (10:53→23:59)
--- NOTE | 2018-12-16 12:00 | NUR ---
PATIENT SITTING UP IN BED WATCHING TV,
--- NOTE | 2018-12-16 12:45 | NUR ---
BEING FEED HIS LUNCH
--- NOTE | 2018-12-16 13:50 | NUR ---
WOUND CARE NOTE: Weekly reevaluation by wound care team. Wound care team has been following patient due to pressure injuries present on admission. Patient seen with ALEAH Yin and EMELIA Lindsay. Patient is alert and denies pain. Last Aj score is 7. Patient currently on a specialty air mattress. Photographs taken for reference. See assessment for measurements of wounds. RECOMMENDATIONS: Continue with previous wound/skin care orders; izzy boots bilaterally; wound care team to continue to follow. Addendum: 12/16/18 at 1855 by COSME LAY RN Amended: Links added.
--- NOTE | 2018-12-16 14:00 | NUR ---
WOUND CARE NURSE IN TO SEE THE PATIENT
--- NOTE | 2018-12-16 14:30 | NUR ---
FOAM BOOTS APPLIED TO BOTH LEGS
--- NOTE | 2018-12-16 15:04 | NUR ---
SITTING UP IN THE BED WITH EYES CLOSED APPEARS TO BE SLEEPING
--- NOTE | 2018-12-16 16:43 | NUR ---
DR GERBER IN TO SEE THE PATIENT
--- NOTE | 2018-12-16 17:21 | NUR ---
order written to transfer to tele
[2018-12-16] MEDS: FUROSEMIDE 40 MG/4 ML VIAL IV SCH (17:49)
--- NOTE | 2018-12-16 18:29 | NUR ---
patient being cleaned, due to flexi seal leaking, stool is very watery, a/o times 4, o2 by r/a, saline lock to the rfa 20g flushed and patent, on specialty bed, Abdi to gravity, no complaints of pain, or sob will continue to monitor and give report to the next shift
--- NOTE | 2018-12-16 19:10 | NUR ---
OPENING SHIFT RECEIVED REPORT FROM DAY SHIFT RN. ASSUMED CARE OF PATIENT. PATIENT IN BED WATCHING TV WITH NO SIGNS OR SYMPTOMS OF SOB, PAIN OR DISTRESS. CURRENTLY ON ROOM AIR, 02 SAT - 99%. UPDATED PATIENT ON PLAN OF CARE. WEBSTER AND FLEXISEAL HUNG TO GRAVITY ON BED RAIL. RIGHT FOREARM IV - CLEAN/DRY/INTACT. REPOSITIONED FOR COMFORT. BED IN LOWEST POSITION, SIDE RAILS UP X2, CALL LIGHT WITHIN REACH. WILL CONTINUE TO MONITOR.
--- NOTE | 2018-12-16 20:05 | NUR ---
DR. GARZA AT BEDSIDE.
--- NOTE | 2018-12-16 20:30 | NUR ---
REPORT GIVEN TO REJI BULLARD.
--- NOTE | 2018-12-16 20:59 | NUR ---
TRANSFER PATIENT TRANSFERRED TO ROOM 206 VIA SPECIALTY BED. NO SIGNS OR SYMPTOMS OF SOB, PAIN OR DISTRESS. CURRENTLY ON ROOM AIR, 02 SAT - 98%. RIGHT FOREARM IV - CLEAN/DRY/INTACT. WEBSTER AND FLEXISEAL HUNG TO GRAVITY ON BED RAIL. JESSIKA BOOTS IN PLACE BILATERALLY. BED IN LOWEST POSITION, SIDE RAILS UP X2, CALL LIGHT WITHIN REACH.
--- NOTE | 2018-12-16 21:00 | NUR ---
DEVIN pt transferred to floor NATALIE CALZADA transferred to room 205 via specialty bed on museum or zoo director and portable 02. All patient medications and personal belongings transferred with patient to receiving floor.
[2018-12-16] MEDS: MIRTAZAPINE 30 MG TAB PO SCH (22:34)
[2018-12-17] MEDS: VANCOMYCIN HCL 125MG/5ML ORAL SOL PO SCH ×4 (01:04→18:00)
--- NOTE | 2018-12-17 02:13 | NUR ---
Mild leak on rectal tube. Cleaned patient and changed linen. Patient tolerated well.
[2018-12-17 04:56] VITALS: BP 130/73
--- NOTE | 2018-12-17 05:16 | NUR ---
Mild leak on rectal tube. Cleaned patient and changed linen. Patient tolerated well.
[2018-12-17] MEDS: FUROSEMIDE 40 MG/4 ML VIAL IV SCH ×2 (06:17→19:14)
[2018-12-17] MEDS: ACCU-CHEK COMFORT CURVE STRIP VI SCH ×4 (06:17→21:52)
--- NOTE | 2018-12-17 06:30 | NUR ---
Stool collection bag Changed bag with 300 ml of liquid brown stool content.
[2018-12-17] MEDS: InsuLIN REG 1unit/0.01ml Soln (100units/ml) SC SCH ×4 (06:33→21:53)
--- NOTE | 2018-12-17 07:27 | NUR ---
Endorsed care to day shift RN. Patient in bed asleep with no signs of distress/sob/pain.
[2018-12-17 07:46] VITALS: BP 142/79
[2018-12-17] MEDS: Glucerna Carbsteady SHAKE Vanilla 8oz PO SCH ×2 (08:00→18:00)
[2018-12-17] MEDS: METOLAZONE 5 MG TAB PO SCH (11:30)
[2018-12-17] MEDS: POTASSIUM CHL 20 Meq TABLET PO SCH ×2 (11:31→21:52)
[2018-12-17] MEDS: DILTIAZEM HCL 120MG ER CAP PO SCH (11:32)
[2018-12-17 12:10] VITALS: BP 109/67
[2018-12-17] MEDS: CHOLESTYRAMINE 4 GM POWDER GT SCH ×2 (13:06→23:00)
--- NOTE | 2018-12-17 15:30 | NUR ---
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 Pt's usually has fair appetite, tries to eat meals regularly, NKFA and not into any special diets correctional captain. Pt's in isolation room, on oxygen via nasal cannula, denies any discomfort when rounded this morning. Pt's currently on CCHO 60 gms/meal, Low Fiber/Residue diet with Glucerna Shakes 1 carton BID, has inadequate PO intake aeb< 50% ave. consumed meals (x6) in last 2.5 days d/t pt refused, per nursing. Encouraged to increase food intake through small frequent meals as tolerated. Provide verbal and written nutrition educ. re: current prescribed therapeutic diet as well as for Lasix and he verbalized understanding. Noted pt's for active Tele Psych consult. Est. Needs BW [id number] kcal (25-30 kcal/kgBW), 63-79 gms pro (0.8-1.0 gms/kgBW d/t elev RFT CKD, wounds, severe hypoalbuminemia). Will continue to monitor pertinent labs and reassess nutrient need prn Labs: POC Gluc 136 H; 12/16/18 Gluc 136 H, Cl 110 H, BUN 76 H, Cr 2.51 H, Ca 7.6 L; Tpro 4.4 L, Alb 1.1 L Skin: Aj scale 11, high risk pt with multiple pressure ulcers per RN doc. Pls refer to checkroom chief's notes yesterday for details re: tx plans. GI: Pt had 3x BM yesterday per account auditor. PES: Altered nutrition related lab values r/t acute/chronic medical condition aeb elev RFT hypocalcemia, severe hypoalb, hyperglycemia Inadequate PO intake r/t current GI condition aeb pt`s with recorded PO < 75% and with diarr Will continue to monitor PO intake, skin status, pertinent labs and weight trend. F/u in 3t o 5 days. Rec.: 1.) If renal labs continue trending up, consider Renal Specific 70 gms protein, 2 gm Na in addition to current diet with 1 cup yogurt every meal. 2.) Consider enter order for daily MVI with minerals and Asc acid 500 mgs BID, already e-signed approved by MD. 3.) If Albumin level continues trending down with improved renal labs, consider Prostat 1 pkt BID. 4.) Consider close supervision and feeding assistance prn during meals 5.) Refer to CDE/RD for further nutrition education and weight monitoring upon discharged. 6.) Continue current plan of care.
[2018-12-17 17:02] VITALS: BP 107/60
--- NOTE | 2018-12-17 19:30 | NUR ---
Opening Shift Note Assumed care of patient, alert and oriented x 4. No S/S of distress/SOB or pain. On room air, total care patient. Abdi catheter and flexiseal hanging on bed side rails, patent and draining to gravity. Optifoam to sacrum CDI. Bed in lowest locked position, side rails up x 2, call light within reach. Instructed on POC and to call for assist PRN, will continue to monitor for changes Q1hr and PRN.
[2018-12-17] MEDS: MIRTAZAPINE 30 MG TAB PO SCH (21:50)
[2018-12-17 22:20] VITALS: BP 100/57
[2018-12-18] MEDS: VANCOMYCIN HCL 125MG/5ML ORAL SOL PO SCH ×4 (00:09→17:25)
--- NOTE | 2018-12-18 01:11 | NUR ---
Stool collection Changed stool bag containing 500mL of brown liquid stool. Patent and draining to gravity, hanging on bedside hook. Will continue to monitor and continue care.
[2018-12-18 04:32] VITALS: BP 131/77
[2018-12-18 04:40] LABS: Basophils # (auto) 0 uL; Basophils % (auto) 0.5 % (0.0-2.0); Eosinophils # (auto) 0.1 uL; Eosinophils % (auto) 1.2 % (0.0-7.0); Hematocrit 26.7 % (41.0-53.0); Hemoglobin 8.6 g/dL (13.5-17.5); Lymphocytes # (auto) 0.8 uL; Lymphocytes % (auto) 7.5 % (10.0-50.0); Mean Corpuscular Hemoglobin 28.9 pg (28.0-32.0); Mean Corpuscular Hgb Conc. 32.3 g/dL (32.0-36.0); Mean Corpuscular Volume 89.3 fL (80.0-100.0); Monocytes # (auto) 0.8 uL; Monocytes % (auto) 7.2 % (0.0-12.0); Neutrophils # (auto) 8.8 uL; Neutrophils % (auto) 83.6 % (37.0-80.0); Platelet Count (auto) 314 10^3/uL (140-450); Red Blood Cells 2.99 10^6/uL (4.5-5.90); Red Cell Distribution Width 13.9 % (11.8-14.3); White Blood Cell 10.5 10^3/uL (4.4-10.8)
[2018-12-18 04:54] LABS: BUN/Creatinine Ratio 28.6; Calcium 7.8 mg/dL (8.5-10.1); Potassium 4.9 mmol/L (3.5-5.1)
[2018-12-18] MEDS: ACCU-CHEK COMFORT CURVE STRIP VI SCH ×4 (06:25→22:22)
[2018-12-18] MEDS: InsuLIN REG 1unit/0.01ml Soln (100units/ml) SC SCH ×4 (06:25→22:23)
[2018-12-18] MEDS: FUROSEMIDE 40 MG/4 ML VIAL IV SCH ×2 (06:25→17:24)
--- NOTE | 2018-12-18 06:53 | NUR ---
Closing Shift Note Patient resting in bed. No acute S/S of distress or SOB. Bed in lowest locked position, side rails up x 2, call light within reach. Will endorse care to dayshift ALEAH Peraza.
[2018-12-18 08:00] VITALS: BP 113/57
[2018-12-18] MEDS: Glucerna Carbsteady SHAKE Vanilla 8oz PO SCH ×2 (08:00→18:00)
[2018-12-18] MEDS: METOLAZONE 5 MG TAB PO SCH (11:14)
[2018-12-18] MEDS: POTASSIUM CHL 20 Meq TABLET PO SCH ×2 (11:14→22:00)
[2018-12-18] MEDS: DILTIAZEM HCL 120MG ER CAP PO SCH (11:15)
[2018-12-18] MEDS: CHOLESTYRAMINE 4 GM POWDER GT SCH ×2 (11:15→22:49)
[2018-12-18 12:30] VITALS: BP 114/61
[2018-12-18 17:00] VITALS: BP 110/70
--- NOTE | 2018-12-18 19:50 | NUR ---
Opening Shift Note Assumed care of patient,alert and oriented x 4. Contact precautions in place for C. Diff. On room air and bedbound, max assist. Abdi patent and draining. Flexiseal slightly leaking, changed bedding and cleaned patient, tolerated well. No S/S of distress/SOB or pain. Bed in lowest locked position, side rails up x 2, call light within reach. Instructed on POC and to call for assist PRN, will continue to monitor for changes Q1hr and PRN.
[2018-12-18 22:00] VITALS: BP 116/60
[2018-12-18] MEDS: MIRTAZAPINE 30 MG TAB PO SCH (22:00)
--- NOTE | 2018-12-18 22:05 | NUR ---
Potassium held Potassium level 4.9. Held medication per order instructions to hold if Potassium level is greater than 4.0.
[2018-12-19] MEDS: VANCOMYCIN HCL 125MG/5ML ORAL SOL PO SCH ×4 (00:09→18:06)
[2018-12-19 04:42] VITALS: BP 101/57
--- NOTE | 2018-12-19 06:40 | NUR ---
Blood Glucose Reading Patients blood sugar level was 32 upon first check. Rechecked level which read 96. Patient was asymptomatic, responsive and A&Ox4. Will continue to monitor and continue care.
[2018-12-19] MEDS: FUROSEMIDE 40 MG/4 ML VIAL IV SCH ×2 (06:43→18:06)
[2018-12-19] MEDS: ACCU-CHEK COMFORT CURVE STRIP VI SCH ×4 (06:43→21:55)
[2018-12-19] MEDS: InsuLIN REG 1unit/0.01ml Soln (100units/ml) SC SCH ×4 (06:44→21:55)
--- NOTE | 2018-12-19 06:48 | NUR ---
Closing shift note Patient resting in bed. No acute S/S of distress, SOB or pain. Bed in lowest locked position, side rails up x 2, call light within reach. Will endorse care to dayshift RN.
--- NOTE | 2018-12-19 07:30 | NUR ---
Opening Shift Note Assuming care of patient at this time. Patient is awake and alert. Patient denies pain. Patient shows no signs or symptoms of distress or shortness of breath. Bed is locked and lowered with side rails up x2. Instructed patient on the plan of care for today and to call for assistance as needed. Call light within reach. Will continue to round hourly and as needed.
[2018-12-19] MEDS: Glucerna Carbsteady SHAKE Vanilla 8oz PO SCH ×2 (08:00→18:00)
[2018-12-19 09:00] VITALS: BP 102/60
--- NOTE | 2018-12-19 09:32 | NUR ---
Re: Refusing Labs Call from [place] service engine repairer at this time. Patient is refusing to have labs drawn at this time.
[2018-12-19] MEDS: POTASSIUM CHL 20 Meq TABLET PO SCH ×2 (10:00→20:59)
[2018-12-19] MEDS: METOLAZONE 5 MG TAB PO SCH (10:00)
[2018-12-19] MEDS: DILTIAZEM HCL 120MG ER CAP PO SCH (10:00)
--- NOTE | 2018-12-19 10:45 | NUR ---
Rectal Tube Leaking This RN and FLIP Schultz, cleaned patient at this time. Rectal tube has a large amount of leakage. Patient cleaned and repositioned per orders. Patient tolerated well.
[2018-12-19] MEDS: CHOLESTYRAMINE 4 GM POWDER GT SCH ×2 (11:00→23:00)
--- NOTE | 2018-12-19 11:25 | NUR ---
Refusing Meds Patient is refusing to take the questran at this time. Patient states, "I am not doing that." Educated patient on importance of taking prescribed meds. Patient continues to refuse.
--- NOTE | 2018-12-19 11:28 | NUR ---
Refusing Labs Spoke with patient regarding his refusal for lab draws. Patient is "tired of being poked." Educated patient on the need to have accurate labs so that the provider and care team can give him the best treatment. Patient continues to refuse. Will notify .
--- NOTE | 2018-12-19 11:30 | NUR ---
Refusing Labs Spoke with labor utilization superintendent at this time. He states that patient is refusing labs, he therefore, is going to cancel the order. This RN is aware of patient's refusal and the need to cancel the order.
[2018-12-19 13:00] VITALS: BP 88/51
[2018-12-19 17:00] VITALS: BP 120/63
--- NOTE | 2018-12-19 17:00 | NUR ---
Refusing Accucheck Patient is refusing accucheck at this time. Patient states he is always, "normal." Educated patient.
--- NOTE | 2018-12-19 17:50 | NUR ---
Change Dressing Changed dressing to patient's sacrum at this time. Rectal tube has some leakage. Cleaned patient and repositioned. Dressing changed according to MD orders. No distress noted.
--- NOTE | 2018-12-19 17:55 | NUR ---
Dr. Mcintosh at bedside Dr. Mcintosh at bedside discussing plan of care with patient. Dr. Mcintosh is aware of patient's refusal to have labs drawn.
--- NOTE | 2018-12-19 19:25 | NUR ---
Closing Shift Note Patient is resting in bed. Patient denies pain. No signs or distress. Report given. Will endorse care to the residential aide RN.
--- NOTE | 2018-12-19 20:40 | NUR ---
FED PATIENT FRUIT CUP FROM HIS DINNER TRAY, PATIENT REFUSING THE FISH, RICE AND VEGETABLES. PATIENT FINISHED HIS FRUIT CUP AND ONE CARTON OF MILK, TOLERATED WELL. PATIENT IS TOTAL ASSIST FEEDER. WILL REINFORCE TO RESEARCH AND EVALUATION ANALYST AND DAY SHIFT RN.
--- NOTE | 2018-12-19 20:59 | NUR ---
POTASSIUM HELD LAST POTASSIUM LEVEL ON 12/18 WAS 4.9. PER ORDERS HOLD DOSE IF POTASSIUM LEVEL IS GREATER THAN 4.0.
[2018-12-19] MEDS: MIRTAZAPINE 30 MG TAB PO SCH (21:49)
[2018-12-19 22:00] VITALS: BP 95/55
[2018-12-20] MEDS: VANCOMYCIN HCL 125MG/5ML ORAL SOL PO SCH ×4 (00:16→17:27)
[2018-12-20 05:00] VITALS: BP 97/58
[2018-12-20 05:45] LABS: BUN/Creatinine Ratio 28.7; Calcium 7.7 mg/dL (8.5-10.1); Potassium 3.9 mmol/L (3.5-5.1)
[2018-12-20] MEDS: FUROSEMIDE 40 MG/4 ML VIAL IV SCH (06:29)
[2018-12-20] MEDS: ACCU-CHEK COMFORT CURVE STRIP VI SCH ×4 (06:31→23:07)
[2018-12-20] MEDS: InsuLIN REG 1unit/0.01ml Soln (100units/ml) SC SCH ×4 (06:31→23:07)
[2018-12-20] MEDS: Glucerna Carbsteady SHAKE Vanilla 8oz PO SCH ×2 (08:00→19:18)
[2018-12-20 09:00] VITALS: BP 120/69
--- NOTE | 2018-12-20 10:00 | NUR ---
Refusing Questran Patient continues to refuse to take questran today. Educated patient on the need to take medication as ordered.
[2018-12-20] MEDS: DILTIAZEM HCL 120MG ER CAP PO SCH (10:49)
[2018-12-20] MEDS: CHOLESTYRAMINE 4 GM POWDER GT SCH ×2 (10:50→22:53)
[2018-12-20] MEDS: METOLAZONE 5 MG TAB PO SCH (10:50)
--- NOTE | 2018-12-20 12:23 | NUR ---
Nutrition Follow-up Notes Wt.: 104.8 kg based on bed scale as of yesterday Pt's in isolation room, asleep, no signs of distress noted earlier, currently on CCHO 60 gms/meal, Low Fiber/Residue diet with Glucerna Shakes 1 carton BID, has fair PO intake aeb 70% ave. consumed meals (x6) in last 2.5 days. Est. Needs BW [id number] kcal (25-30 kcal/kgBW), 63-79 gms pro (0.8-1.0 gms/kgBW d/t elev RFT CKD, wounds, severe hypoalbuminemia). Will continue to monitor pertinent labs and reassess nutrient need prn Labs: Gluc 108 H, Cl 110 H, CO2 20 L, BUN 70 H, Cr 2.44 H, Ca 7.7 L; Tpro 4.8 L, Alb 1.8 L Skin: Aj scale 11, high risk pt with multiple pressure ulcers, left lower buttocks MASD per RN doc. Pls refer to affiliate marketing specialist's notes (12/16/18 for details re: tx plans. GI: Pt had 100 ml stool output this morning per hide salter. PES: Altered nutrition related lab values r/t acute/chronic medical condition aeb elev RFT hypocalcemia, severe hypoalb, hyperglycemia Inadequate PO intake r/t current GI condition aeb pt`s with recorded PO < 75% and with diarr Will continue to monitor PO intake, skin status, pertinent labs and weight trend. F/u in 3t o 5 days. Rec.: 1.) If renal labs continue trending up, consider Renal Specific 70 gms protein, 2 gm Na in addition to current diet with 1 cup yogurt every meal. 2.) Consider enter order for daily MVI with minerals and Asc acid 500 mgs BID, already e-signed approved by . 3.) If Albumin level continues trending down with improved renal labs, consider Prostat 1 pkt BID. 4.) Consider close supervision and feeding assistance prn during meals 5.) Refer to CDE/RD for further nutrition education and weight monitoring upon discharged. 6.) Continue current plan of care.
[2018-12-20 13:00] VITALS: BP 103/62
[2018-12-20 17:00] VITALS: BP 105/51
--- NOTE | 2018-12-20 17:00 | NUR ---
Change Patient Rectal tube has a large amount of leakage. Cleaned patient and repositioned. No distress noted.
--- NOTE | 2018-12-20 19:19 | NUR ---
Closing Note Patient is resting in bed. Patient shows no signs or symptoms of distress. Report given. Will endorse care to the [facility] shift lead RN.
--- NOTE | 2018-12-20 20:00 | NUR ---
Opening Shift Note Assumed care of patient, patient is awake and alert x 4. Contact precautions in place for C. Diff. On room air and bedbound, max assist. Turn every 2 hours. Abdi patent and draining to gravity. Flexiseal slightly leaking, changed bedding and cleaned patient, tolerated well. No S/S of distress/SOB or pain. Bed in lowest locked position, side rails up x 2, call light within reach. Instructed on POC and to call for assist PRN, will continue to monitor for changes Q1hr and PRN.
[2018-12-20 22:00] VITALS: BP 111/55
[2018-12-20] MEDS: MIRTAZAPINE 30 MG TAB PO SCH (22:52)
[2018-12-21] MEDS: VANCOMYCIN HCL 125MG/5ML ORAL SOL PO SCH ×4 (00:24→17:09)
[2018-12-21 05:00] VITALS: BP 96/59
[2018-12-21 06:26] LABS: BUN/Creatinine Ratio 28.5; Calcium 7.4 mg/dL (8.5-10.1); Potassium 3.9 mmol/L (3.5-5.1)
[2018-12-21] MEDS: InsuLIN REG 1unit/0.01ml Soln (100units/ml) SC SCH ×4 (06:47→22:00)
[2018-12-21] MEDS: ACCU-CHEK COMFORT CURVE STRIP VI SCH ×4 (06:47→22:00)
[2018-12-21] MEDS: Glucerna Carbsteady SHAKE Vanilla 8oz PO SCH ×2 (07:36→17:10)
[2018-12-21 09:00] VITALS: BP 92/54
[2018-12-21] MEDS: FUROSEMIDE 40 MG/4 ML VIAL IV SCH (10:12)
[2018-12-21] MEDS: DILTIAZEM HCL 120MG ER CAP PO SCH (10:12)
[2018-12-21] MEDS: METOLAZONE 5 MG TAB PO SCH (10:13)
[2018-12-21] MEDS: CHOLESTYRAMINE 4 GM POWDER GT SCH (10:15)
[2018-12-21 13:00] VITALS: BP 99/64
[2018-12-21] MEDS: CHOLESTYRAMINE 4 GM POWDER PO SCH ×2 (14:15→17:10)
--- NOTE | 2018-12-21 14:20 | NUR ---
md miller at bedside rounded on pt informed of patient still having diarhea and refusing cholestron powder, new orders noted carried out
[2018-12-21] MEDS: metroNIDAZOLE 500MG/100ML 100 ML IV SCH ×2 (14:29→22:52)
[2018-12-21 16:46] VITALS: BP 100/57
[2018-12-21 22:00] VITALS: BP 107/65
[2018-12-21] MEDS: MIRTAZAPINE 30 MG TAB PO SCH (22:51)
[2018-12-22] MEDS: CHOLESTYRAMINE 4 GM POWDER PO SCH ×4 (01:03→17:18)
[2018-12-22] MEDS: VANCOMYCIN HCL 125MG/5ML ORAL SOL PO SCH ×4 (01:03→17:17)
[2018-12-22 05:00] VITALS: BP 100/56
[2018-12-22 05:22] LABS: Basophils # (auto) 0.1 uL; Basophils % (auto) 1.3 % (0.0-2.0); Eosinophils # (auto) 0.1 uL; Eosinophils % (auto) 1.3 % (0.0-7.0); Hematocrit 21.5 % (41.0-53.0); Hemoglobin 7.2 g/dL (13.5-17.5); Lymphocytes # (auto) 0.7 uL; Lymphocytes % (auto) 9.2 % (10.0-50.0); Mean Corpuscular Hemoglobin 29.1 pg (28.0-32.0); Mean Corpuscular Hgb Conc. 33.4 g/dL (32.0-36.0); Mean Corpuscular Volume 87.2 fL (80.0-100.0); Monocytes # (auto) 0.7 uL; Monocytes % (auto) 9.6 % (0.0-12.0); Neutrophils # (auto) 5.6 uL; Neutrophils % (auto) 78.6 % (37.0-80.0); Platelet Count (auto) 295 10^3/uL (140-450); Red Blood Cells 2.47 10^6/uL (4.5-5.90); Red Cell Distribution Width 13.7 % (11.8-14.3); White Blood Cell 7.2 10^3/uL (4.4-10.8)
[2018-12-22 05:29] LABS: Calcium 7.5 mg/dL (8.5-10.1); Potassium 3.8 mmol/L (3.5-5.1)
[2018-12-22 05:35] LABS: BUN/Creatinine Ratio 26.9
[2018-12-22] MEDS: metroNIDAZOLE 500MG/100ML 100 ML IV SCH ×3 (06:44→22:39)
[2018-12-22] MEDS: ACCU-CHEK COMFORT CURVE STRIP VI SCH ×4 (06:46→22:38)
[2018-12-22] MEDS: InsuLIN REG 1unit/0.01ml Soln (100units/ml) SC SCH ×4 (06:47→22:00)
[2018-12-22 07:52] VITALS: BP 99/58
[2018-12-22] MEDS: FUROSEMIDE 40 MG/4 ML VIAL IV SCH (09:41)
[2018-12-22] MEDS: Glucerna Carbsteady SHAKE Vanilla 8oz PO SCH ×2 (09:42→18:11)
[2018-12-22] MEDS: DILTIAZEM HCL 120MG ER CAP PO SCH (09:42)
[2018-12-22] MEDS: METOLAZONE 5 MG TAB PO SCH (09:42)
[2018-12-22 11:18] LABS: % Iron Saturation 26.6 % (20-55)
[2018-12-22 11:29] LABS: Ferritin 546.8 ng/mL (10-322)
[2018-12-22] MEDS: SODIUM FERR GLUC 62.5MG/5ML 125 MG in SODIUM CHL 0.9% 100 ML IV SCH (12:15)
[2018-12-22 13:00] VITALS: BP 116/63
[2018-12-22 16:00] VITALS: BP 111/69
--- NOTE | 2018-12-22 19:30 | NUR ---
Opening Shift Note Assumed care of patient, awake and alert. Rectal tube in place and draining liquid brown stool. Abdi draining yellow urine. Unable to use hands very much. Very weak. No S/S of distress/SOB or pain. Instructed on POC and to call for assist PRN, will continue to monitor for changes Q1hr and PRN.
[2018-12-22] MEDS: MIRTAZAPINE 30 MG TAB PO SCH (22:38)
[2018-12-23 00:03] VITALS: BP 104/61
[2018-12-23 05:24] VITALS: BP 116/65
[2018-12-23] MEDS: VANCOMYCIN HCL 125MG/5ML ORAL SOL PO SCH ×4 (06:00→17:54)
[2018-12-23] MEDS: CHOLESTYRAMINE 4 GM POWDER PO SCH ×4 (06:00→18:00)
[2018-12-23] MEDS: metroNIDAZOLE 500MG/100ML 100 ML IV SCH ×3 (06:00→22:20)
[2018-12-23 06:03] LABS: Calcium 7.9 mg/dL (8.5-10.1); Potassium 3.4 mmol/L (3.5-5.1)
[2018-12-23 06:06] LABS: BUN/Creatinine Ratio 26.3
[2018-12-23] MEDS: InsuLIN REG 1unit/0.01ml Soln (100units/ml) SC SCH ×4 (07:00→22:00)
[2018-12-23] MEDS: ACCU-CHEK COMFORT CURVE STRIP VI SCH ×4 (07:00→22:23)
[2018-12-23] MEDS: Glucerna Carbsteady SHAKE Vanilla 8oz PO SCH ×2 (08:02→17:54)
[2018-12-23 08:25] VITALS: BP 127/61
[2018-12-23] MEDS: METOLAZONE 5 MG TAB PO SCH (09:01)
[2018-12-23] MEDS: DILTIAZEM HCL 120MG ER CAP PO SCH (09:01)
[2018-12-23 12:40] VITALS: BP 101/59
[2018-12-23] MEDS: SODIUM FERR GLUC 62.5MG/5ML 125 MG in SODIUM CHL 0.9% 100 ML IV SCH (12:42)
--- NOTE | 2018-12-23 14:10 | NUR ---
WOUND CARE NOTE: Weekly reevaluation by wound care team. Wound care team has been following patient due to pressure injuries present on admission. Patient seen with ALEAH Yin. Patient is alert and denies pain. Last Aj score is 10. Patient currently on a specialty air mattress. See assessment for measurements of wounds. RECOMMENDATIONS: Continue with previous wound/skin care orders; wound care team to continue to follow. Addendum: 12/24/18 at 1414 by COSME LAY RN Amended: Links added.
--- NOTE | 2018-12-23 14:55 | NUR ---
Nutrition Follow-up Notes Wt.: 103.7 kg Pt's in isolation room, asleep, no signs of distress noted earlier, currently on CCHO 60 gms/meal, Low Fiber/Residue diet with Glucerna Shakes 1 carton BID, has fair PO of avg 65% x 2 days per RN doc Est. Needs BW [id number] kcal (25-30 kcal/kgBW), 63-79 gms pro (0.8-1.0 gms/kgBW d/t elev RFT CKD, wounds, severe hypoalbuminemia). Will continue to monitor pertinent labs and reassess nutrient need prn Labs: BUN 63 H, CREAT 2.4 H, GLU 114 H, CA 7.9 L. Skin: Aj scale 13, mod risk pt with multiple pressure ulcers, left lower buttocks MASD per RN doc. Pls refer to medical office rep's notes for details re: tx plans. GI: Pt had 700 ml stool output this morning per retrimmer. PES: Altered nutrition related lab values r/t acute/chronic medical condition aeb elev RFT hypocalcemia, severe hypoalb, hyperglycemia Inadequate PO intake r/t current GI condition aeb pt`s with recorded PO < 75% and with diarr Will continue to monitor PO intake, skin status, pertinent labs and weight trend. F/u in 3t o 5 days. Rec.: 1.) If renal labs continue trending up, consider Renal Specific 70 gms protein, 2 gm Na in addition to current diet with 1 cup yogurt every meal. 2.) Consider enter order for daily MVI with minerals and Asc acid 500 mgs BID, already e-signed approved by . 3.) If Albumin level continues trending down with improved renal labs, consider Prostat 1 pkt BID. 4.) Consider close supervision and feeding assistance prn during meals 5.) Refer to CDE/RD for further nutrition education and weight monitoring upon discharged. 6.) Continue current plan of care.
[2018-12-23 16:42] VITALS: BP 116/65
--- NOTE | 2018-12-23 19:30 | NUR ---
Opening Shift Note Assumed care of patient, awake and alert. Irritable at times. very down and depressed. Rectal tube draining brown liquid stool. Continues to smell like cdiff. IV patent to left FA heplocked at this time. No S/S of distress/SOB or pain. Instructed on POC and to call for assist PRN, will continue to monitor for changes Q1hr and PRN.
[2018-12-23] MEDS: MIRTAZAPINE 30 MG TAB PO SCH (22:00)
[2018-12-24] MEDS: VANCOMYCIN HCL 125MG/5ML ORAL SOL PO SCH ×5 (00:08→23:49)
[2018-12-24 00:12] VITALS: BP 111/59
[2018-12-24 05:55] VITALS: BP 99/59
[2018-12-24] MEDS: CHOLESTYRAMINE 4 GM POWDER PO SCH ×5 (06:00→23:49)
--- NOTE | 2018-12-24 06:00 | NUR ---
PATIENTS RECTAL TUBE LEAKING AROUND TUBE. CLEANED PT UP, BED BATH AND NEW LINENS. REQUESTING YOGURT ON TRAY IF POSSIBLE.WILL NOTIFY KITCHEN.
[2018-12-24 06:01] LABS: Potassium 3.4 mmol/L (3.5-5.1)
[2018-12-24 06:05] LABS: BUN/Creatinine Ratio 27.9; Calcium 7.5 mg/dL (8.5-10.1)
[2018-12-24] MEDS: metroNIDAZOLE 500MG/100ML 100 ML IV SCH ×3 (06:09→23:13)
[2018-12-24] MEDS: InsuLIN REG 1unit/0.01ml Soln (100units/ml) SC SCH ×4 (06:10→23:28)
[2018-12-24] MEDS: ACCU-CHEK COMFORT CURVE STRIP VI SCH ×4 (06:10→22:00)
--- NOTE | 2018-12-24 07:39 | NUR ---
RECEIVED REPORT FROM NIGHT NURSE. PATIENT RESTING IN BED, NO DISTRESS NOTED. WILL CONTINUE TO MONITOR.
[2018-12-24] MEDS: Glucerna Carbsteady SHAKE Vanilla 8oz PO SCH ×2 (08:00→18:00)
[2018-12-24 09:00] VITALS: BP 107/63
[2018-12-24] MEDS: METOLAZONE 5 MG TAB PO SCH (10:17)
[2018-12-24] MEDS: DILTIAZEM HCL 120MG ER CAP PO SCH (10:17)
[2018-12-24] MEDS: SODIUM FERR GLUC 62.5MG/5ML 125 MG in SODIUM CHL 0.9% 100 ML IV SCH (11:50)
[2018-12-24 13:00] VITALS: BP 113/64
[2018-12-24 17:00] VITALS: BP 96/61
--- NOTE | 2018-12-24 19:30 | NUR ---
Opening Shift Note Assumed care of patient, awake and alert. Rectal tube in place. Continues to leak around tube soiling bed and himself. States "I am unaware when Im soiled." Specialty mattress in place. Cleaned patient and new gown and linens. 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 Continues with seeming down/depressed. No S/S of distress/SOB or pain. Instructed on POC and to call for assist PRN, will continue to monitor for changes Q1hr and PRN.
[2018-12-24] MEDS: MIRTAZAPINE 30 MG TAB PO SCH (22:00)
[2018-12-24 22:22] VITALS: BP 100/66
[2018-12-25 04:59] VITALS: BP 113/64
[2018-12-25] MEDS: CHOLESTYRAMINE 4 GM POWDER PO SCH ×3 (06:00→18:00)
[2018-12-25] MEDS: metroNIDAZOLE 500MG/100ML 100 ML IV SCH ×3 (06:36→21:59)
[2018-12-25] MEDS: InsuLIN REG 1unit/0.01ml Soln (100units/ml) SC SCH ×4 (06:36→22:00)
[2018-12-25] MEDS: VANCOMYCIN HCL 125MG/5ML ORAL SOL PO SCH ×3 (06:36→18:13)
[2018-12-25] MEDS: ACCU-CHEK COMFORT CURVE STRIP VI SCH ×4 (06:37→21:59)
--- NOTE | 2018-12-25 07:00 | NUR ---
Failed attempt for new IV start. Patient unable to open arms due to ALS and rigid. IV to R FA causing pain when flushing. Charge nurse and day nurse made aware. Pt resting at this time.
--- NOTE | 2018-12-25 07:30 | NUR ---
RECEIVED REPORT FROM NIGHT NURSE. PATIENT RESTING IN BED, NO DISTRESS NOTED. WILL CONTINUE TO MONITOR.
--- NOTE | 2018-12-25 08:30 | NUR ---
IV INSERTION IV INSERTED USING ASEPTIC TECHNIQUE. 20G TO THE LEFT WRIST, PATENT AND FLUSHING.
[2018-12-25 09:00] VITALS: BP 113/68
[2018-12-25] MEDS: DILTIAZEM HCL 120MG ER CAP PO SCH (09:25)
[2018-12-25] MEDS: Glucerna Carbsteady SHAKE Vanilla 8oz PO SCH ×2 (09:25→18:13)
[2018-12-25] MEDS: METOLAZONE 5 MG TAB PO SCH (09:26)
[2018-12-25] MEDS: SODIUM FERR GLUC 62.5MG/5ML 125 MG in SODIUM CHL 0.9% 100 ML IV SCH (12:00)
[2018-12-25 13:00] VITALS: BP 132/73
[2018-12-25 17:00] VITALS: BP 94/55
--- NOTE | 2018-12-25 19:35 | NUR ---
Opening Shift Note Assumed care of patient, awake and alert. No S/S of distress/SOB or pain. Rectal tube in place, noted leakage on the pads. Abdi draining well. 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 Instructed on POC, turned to his side and every 2 hours. Changed chucks and kept patient dry. Instructed to call for assist PRN, patient verbalized understanding, call light within reach, bed alarm on, will continue to monitor for changes Q1hr and PRN.
[2018-12-25] MEDS: MIRTAZAPINE 30 MG TAB PO SCH (21:59)
[2018-12-25 22:18] VITALS: BP 93/59
[2018-12-26] MEDS: VANCOMYCIN HCL 125MG/5ML ORAL SOL PO SCH ×5 (00:16→23:52)
[2018-12-26 05:23] VITALS: BP 117/62
[2018-12-26] MEDS: CHOLESTYRAMINE 4 GM POWDER PO SCH ×4 (05:39→17:58)
[2018-12-26] MEDS: metroNIDAZOLE 500MG/100ML 100 ML IV SCH ×3 (05:39→23:12)
[2018-12-26] MEDS: ACCU-CHEK COMFORT CURVE STRIP VI SCH ×4 (06:10→23:12)
[2018-12-26] MEDS: InsuLIN REG 1unit/0.01ml Soln (100units/ml) SC SCH ×4 (06:11→22:00)
--- NOTE | 2018-12-26 07:26 | NUR ---
Opening Shift Note Assumed care of patient, awake and alert. No S/S of distress or SOB. Pt denies any pain at this time. Bed in lowest and locked position with side rails up x2 and call light within reach. Instructed on POC and to call for assist PRN, will continue to monitor for changes Q1hr and PRN.
[2018-12-26] MEDS: Glucerna Carbsteady SHAKE Vanilla 8oz PO SCH ×2 (08:52→17:58)
[2018-12-26 09:00] VITALS: BP_SYST 136; BP_SYST 97; BP_DIAS 61; BP_DIAS 63
[2018-12-26] MEDS: METOLAZONE 5 MG TAB PO SCH (09:47)
[2018-12-26] MEDS: DILTIAZEM HCL 120MG ER CAP PO SCH (09:47)
[2018-12-26] MEDS: SODIUM FERR GLUC 62.5MG/5ML 125 MG in SODIUM CHL 0.9% 100 ML IV SCH (13:17)
[2018-12-26 17:00] VITALS: BP_SYST 128; BP_SYST 97; BP_DIAS 61; BP_DIAS 73
--- NOTE | 2018-12-26 18:55 | NUR ---
DR. GODWIN AT PATIENT BEDSIDE DISCUSSING POC WITH PATIENT.
--- NOTE | 2018-12-26 19:35 | NUR ---
Opening Shift Note Assumed care of patient, awake and alert. No S/S of distress/SOB or pain. Rectal tube in place, noted leakage on the pads. Abdi draining well. 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 Instructed on POC, turned to his side and every 2 hours. Changed pads and kept patient dry. Instructed to call for assist PRN, patient verbalized understanding, call light within reach, bed alarm on, will continue to monitor for changes Q1hr and PRN.
[2018-12-26 22:00] VITALS: BP 130/69
[2018-12-26] MEDS: MIRTAZAPINE 30 MG TAB PO SCH (23:12)
[2018-12-27 05:46] LABS: BUN/Creatinine Ratio 26.3; Calcium 7.7 mg/dL (8.5-10.1)
[2018-12-27 06:00] VITALS: BP 107/66
[2018-12-27] MEDS: CHOLESTYRAMINE 4 GM POWDER PO SCH ×5 (06:00→23:57)
[2018-12-27 06:01] LABS: Potassium 2.9 mmol/L (3.5-5.1)
--- NOTE | 2018-12-27 06:15 | NUR ---
Received a critical lab value of Potassium 2.9. Brandon shah MD
[2018-12-27] MEDS: metroNIDAZOLE 500MG/100ML 100 ML IV SCH ×3 (06:31→21:32)
[2018-12-27] MEDS: VANCOMYCIN HCL 125MG/5ML ORAL SOL PO SCH ×3 (06:31→17:46)
[2018-12-27] MEDS: InsuLIN REG 1unit/0.01ml Soln (100units/ml) SC SCH ×4 (06:32→21:40)
[2018-12-27] MEDS: ACCU-CHEK COMFORT CURVE STRIP VI SCH ×4 (06:32→21:32)
--- NOTE | 2018-12-27 06:49 | NUR ---
Paged Dr. Mcintosh and left a message, awaiting call back
--- NOTE | 2018-12-27 06:57 | NUR ---
Received an order from Dr. Mcintosh, will carry out order
[2018-12-27] MEDS ORDERED: POTASSIUM CHL 20 Meq TABLET PO ONE ×2 (07:00→09:15)
[2018-12-27] MEDS ORDERED: POTASSIUM CHL 20MEQ/100ML 100 ML IV ONE (07:00)
--- NOTE | 2018-12-27 07:30 | NUR ---
Opening Shift Note Assumed care of patient, awake and alert. No S/S of distress/SOB or pain. Instructed on POC and to call for assist PRN, will continue to monitor for changes Q1hr and PRN. Bed in low and locked position, rails up x2, no-slip socks on. Repositioned for comfort and to relieve pressure areas.
[2018-12-27] MEDS: Glucerna Carbsteady SHAKE Vanilla 8oz PO SCH ×2 (08:00→17:46)
--- NOTE | 2018-12-27 08:40 | NUR ---
DR ORTEGA AT BEDSIDE ORDERS TO STOP IV POTASSIUM, NEW PO POTASSIUM ORDERS ADDED, WILL CARRY OUT.
[2018-12-27 09:00] VITALS: BP 86/60
--- NOTE | 2018-12-27 09:48 | NUR ---
LOW BP PAGE TO DR GODWIN REGARDING LOW BP 86/60 AND HR 85. AWAITING CALL BACK.
[2018-12-27] MEDS: METOLAZONE 5 MG TAB PO SCH (10:00)
[2018-12-27] MEDS: DILTIAZEM HCL 120MG ER CAP PO SCH (10:00)
--- NOTE | 2018-12-27 10:30 | NUR ---
CHANGED STOOL BAG 850 LIQUID LIGHT BROWN STOOL REMOVED FROM PREVIOUS BAG. NEW BAG PLACED AND SECURED TO BED.
--- NOTE | 2018-12-27 11:00 | NUR ---
IV insertion and IV removal IV access obtained, via clean sterile technique by inserting 22 gauge catheter at right wrist after 1 attempt. IV secured properly. No trauma to site. Patient tolerated well. IV DC'd to left wrist with clean sterile technique, catheter fully intact. Pressure dressing applied to site. Patient tolerated well.
--- NOTE | 2018-12-27 11:10 | NUR ---
DR GODWIN CALL BACK NEW ORDERS ADDED FOR LABS AND BOLUS 500ML. WILL CARRY OUT ORDERED.
[2018-12-27] MEDS ORDERED: SODIUM CHLORIDE 0.9% 500 ML IV ONE (11:15)
[2018-12-27 11:34] LABS: Eosinophils # (auto) 0.2 uL; Monocytes # (auto) 0.7 uL; Nucleated Red Blood Cells % 0.1 %; Red Cell Distribution Width 13.9 % (11.8-14.3); White Blood Cell 5.6 10^3/uL (4.4-10.8)
[2018-12-27 11:36] LABS: Basophils # (auto) 0.2 uL; Basophils % (auto) 3.2 % (0.0-2.0); Eosinophils % (auto) 4.4 % (0.0-7.0); Hematocrit 21.8 % (41.0-53.0); Hemoglobin 7.4 g/dL (13.5-17.5); Lymphocytes # (auto) 0.8 uL; Lymphocytes % (auto) 14.4 % (10.0-50.0); Mean Corpuscular Hemoglobin 29.1 pg (28.0-32.0); Mean Corpuscular Hgb Conc. 33.9 g/dL (32.0-36.0); Mean Corpuscular Volume 85.8 fL (80.0-100.0); Monocytes % (auto) 11.5 % (0.0-12.0); Neutrophils # (auto) 3.8 uL; Neutrophils % (auto) 66.5 % (37.0-80.0); Platelet Count (auto) 317 10^3/uL (140-450); Red Blood Cells 2.54 10^6/uL (4.5-5.90)
[2018-12-27] MEDS: SODIUM FERR GLUC 62.5MG/5ML 125 MG in SODIUM CHL 0.9% 100 ML IV SCH (12:53)
[2018-12-27 13:00] VITALS: BP 111/64
--- NOTE | 2018-12-27 13:00 | NUR ---
DR GODWIN AT BEDSIDE
--- NOTE | 2018-12-27 16:53 | NUR ---
assessment Patient is a 68 year old male who is alert and oriented. Patients cognitive abilities are intact. Prior to admission patient was at [facility]. Per patient he will return to [facility] on discharge. I informed patient he has a right to speak to a clinical social worker regarding all care. I informed patient he has a right to participate in any and all discharge planning. Patient has a POA and advanced directive. Patient verbalized understanding and agreed to discharge plan back to [facility]. Addendum: 12/27/18 at 1653 by Elle JUDGE Amended: Links added.
[2018-12-27 17:00] VITALS: BP 118/71
--- NOTE | 2018-12-27 19:35 | NUR ---
OPENING NOTE REPORT RECEIVED FROM DAY SHIFT RN PATIENT IS A/OX4, RESTING IN BED. WEBSTER CATHETER DRAINING CLOUDY YELLOW URINE. RECTAL TUBE IN PLACE DRAINING LOOSE LIQUID BROWN BM. IV TO RIGHT FOREARM INTACT AND PATENT. JESSIKA BOOTS ON BILATERAL FEET. PHYSICAL ASSESSMENT DONE-SEE INTERVENTIONS. PATIENT IS ON SPECIALTY AIR MATTRESS. WILL BE TURNED Q2H. PATIENT IS ON BEDREST WITH OVERALL WEAKNESS. LEFT HAND WITH SOME STRENGTH. CALL LIGHT PLACED WITHIN REACH OF LEFT HAND. POC DISCUSSED. WILL MONITOR Q1H PRN THROUGHOUT SHIFT.
[2018-12-27] MEDS: MIRTAZAPINE 30 MG TAB PO SCH (21:32)
[2018-12-27 22:00] VITALS: BP 120/69
[2018-12-28 05:01] LABS: BUN/Creatinine Ratio 26.6; Calcium 7.8 mg/dL (8.5-10.1); Potassium 3.4 mmol/L (3.5-5.1)
[2018-12-28 05:57] VITALS: BP 105/61
[2018-12-28] MEDS: CHOLESTYRAMINE 4 GM POWDER PO SCH ×3 (06:00→17:42)
[2018-12-28] MEDS: ACCU-CHEK COMFORT CURVE STRIP VI SCH ×4 (06:45→22:00)
[2018-12-28] MEDS: metroNIDAZOLE 500MG/100ML 100 ML IV SCH ×3 (06:45→22:37)
[2018-12-28] MEDS: InsuLIN REG 1unit/0.01ml Soln (100units/ml) SC SCH ×4 (06:47→22:00)
--- NOTE | 2018-12-28 06:53 | NUR ---
CLOSING PATIENT IS SLEEPING. VISIBLE RISE AND FALL OF CHEST NOTED. PATIENT WAS TURNED Q2H DURING SHIFT. JESSIKA BOOTS REMAIN IN PLACE TO BILATERAL FEET. IV INFUSING MORNING DOSE OF ANTIBIOTICS. CALL LIGHT WITHIN REACH. WILL ENDORSE CARE TO AM SHIFT RN.
--- NOTE | 2018-12-28 07:15 | NUR ---
Opening Shift Note Assumed care of patient, awake and alert. No S/S of distress/SOB or pain. Instructed on POC and to call for assist PRN, will continue to monitor for changes Q1hr and PRN. Bed in low and locked position, rails up x2, no-slip socks on, repositioned for comfort.
[2018-12-28] MEDS: Glucerna Carbsteady SHAKE Vanilla 8oz PO SCH ×2 (08:00→17:42)
--- NOTE | 2018-12-28 08:30 | NUR ---
PATIENT REFUSING BREAKFAST STATING IT IS TOO EARLY AND HE IS TIRED, ATTEMPTED TO HELP FEED LATER IN THE MORNING AND HE STATED "THE FOOD IS TOO COLD NOW", HELPED PATIENT TO EAT SOME APPLESAUCE AND JUICE AT 10AM
[2018-12-28 09:08] VITALS: BP 140/78
[2018-12-28] MEDS: METOLAZONE 5 MG TAB PO SCH (09:40)
[2018-12-28] MEDS: POTASSIUM CHL 20 Meq TABLET PO SCH (09:40)
[2018-12-28] MEDS: DILTIAZEM HCL 120MG ER CAP PO SCH (09:41)
[2018-12-28 12:13] VITALS: BP 115/67
--- NOTE | 2018-12-28 12:30 | NUR ---
PATIENT REFUSING LUNCH STATED HE DOESN'T HAVE THE STOMACH FOR IT, WILL ADMINISTER ZOFRAN ORDERED AND ON ATTEMPT TO FEED LATER IN THE AFTERNOON STATED HE "DIDN'T LIKE HAMBURGERS", KEPT FRUIT AND JUICE AT BEDSIDE.
--- NOTE | 2018-12-28 12:53 | NUR ---
Nutrition Follow-up Notes Wt.: 105.0 kg Pt's in isolation room, asleep, no signs of distress noted earlier, currently on CCHO 60 gms/meal, Low Fiber/Residue diet with Glucerna Shakes 1 carton BID, with adequte PO of 100% x 4 per RN doc. pt with Cdiff Est. Needs BW [id number] kcal (25-30 kcal/kgBW), 63-79 gms pro (0.8-1.0 gms/kgBW d/t elev RFT CKD, wounds, severe hypoalbuminemia). Will continue to monitor pertinent labs and reassess nutrient need prn Labs: BUN 53 H, CREAT 1.99 H, CA 7.8 L. Skin: Aj scale 11 high risk pt with multiple pressure ulcers, left lower buttocks MASD per RN doc. Pls refer to raw stock machine loader's notes for details re: tx plans. GI: Pt had 300 ml stool output this morning rectal tube per network lead. PES: Altered nutrition related lab values r/t acute/chronic medical condition aeb elev RFT hypocalcemia, severe hypoalb, hyperglycemia Inadequate PO intake r/t current GI condition aeb pt`s with recorded PO < 75% and with diarr Will continue to monitor PO intake, skin status, pertinent labs and weight trend. F/u in 3t o 5 days. Rec.: 1.) If renal labs continue trending up, consider Renal Specific 70 gms protein, 2 gm Na in addition to current diet with 1 cup yogurt every meal. 2.) Consider enter order for daily MVI with minerals and Asc acid 500 mgs BID, already e-signed approved by . 3.) If Albumin level continues trending down with improved renal labs, consider Prostat 1 pkt BID. 4.) Consider close supervision and feeding assistance prn during meals 5.) Refer to CDE/RD for further nutrition education and weight monitoring upon discharged. 6.) Continue current plan of care.
[2018-12-28] MEDS: SODIUM FERR GLUC 62.5MG/5ML 125 MG in SODIUM CHL 0.9% 100 ML IV SCH (13:21)
[2018-12-28 16:36] VITALS: BP 110/68
[2018-12-28] MEDS: MIRTAZAPINE 30 MG TAB PO SCH (22:38)
[2018-12-29] MEDS: CHOLESTYRAMINE 4 GM POWDER PO SCH ×4 (00:24→18:00)
[2018-12-29] MEDS: VANCOMYCIN HCL 125MG/5ML ORAL SOL GT SCH ×2 (00:25→04:55)
[2018-12-29] MEDS: metroNIDAZOLE 500MG/100ML 100 ML IV SCH ×3 (04:55→22:40)
[2018-12-29 05:28] VITALS: BP 132/71
[2018-12-29] MEDS: ACCU-CHEK COMFORT CURVE STRIP VI SCH ×4 (05:33→22:40)
[2018-12-29] MEDS: InsuLIN REG 1unit/0.01ml Soln (100units/ml) SC SCH ×4 (05:33→22:40)
--- NOTE | 2018-12-29 07:45 | NUR ---
oPENING Patient in bed, bed in lowest position, call light within reach. No distress noted at this time. WIll f/u with morning assessment potassium 3.4 bun 53 crea 1.99 will continue to monitor this patient
[2018-12-29] MEDS: Glucerna Carbsteady SHAKE Vanilla 8oz PO SCH ×2 (08:00→18:00)
--- NOTE | 2018-12-29 08:43 | NUR ---
md miller rounding, new orders for potassium 40 meq, and 20 meq iv pb potassium currently 3.4
[2018-12-29 09:00] VITALS: BP 112/62
[2018-12-29] MEDS: POTASSIUM CHL 20 Meq TABLET PO SCH (10:44)
[2018-12-29] MEDS: METOLAZONE 5 MG TAB PO SCH (10:44)
[2018-12-29] MEDS: DILTIAZEM HCL 120MG ER CAP PO SCH (10:45)
[2018-12-29] MEDS: VANCOMYCIN HCL 125MG/5ML ORAL SOL PO SCH ×2 (11:50→18:17)
[2018-12-29 13:00] VITALS: BP 107/51
--- NOTE | 2018-12-29 14:30 | NUR ---
IV insertion IV access obtained, via clean sterile technique by inserting 22 gauge catheter at left forearm after 1 attempt(s). IV secured properly. No trauma to site. Patient tolerated procedure well. Signed: 12/29/18 at 1830 by SN JORGE <Co-Signature Required> Co-Signed: 12/29/18 at 1829 by Meredith Landon RN
--- NOTE | 2018-12-29 14:30 | NUR ---
IV removal IV DC'd with sterile technique, right forearm catheter fully intact. Pressure dressing applied to site. Patient tolerated procedure well. Discharged with aftercare instructions per MD. NOTE: Signed: 12/29/18 at 183 by SN JORGE <Co-Signature Required> Co-Signed: 12/29/18 at 183 by Meredith Landon RN
[2018-12-29] MEDS ORDERED: POTASSIUM CHLORIDE 20 MEQ, LIDOCAINE 1% (LOCAL ANESTH.) 2 ML in SODIUM CHL 0.9% 100 ML IV ONE (14:45)
[2018-12-29] MEDS ORDERED: POTASSIUM CHL 20 Meq TABLET PO ONE (14:45)
[2018-12-29] MEDS: SODIUM FERR GLUC 62.5MG/5ML 125 MG in SODIUM CHL 0.9% 100 ML IV SCH (15:20)
[2018-12-29 17:00] VITALS: BP 124/70
[2018-12-29 22:00] VITALS: BP 130/75
[2018-12-29] MEDS: MIRTAZAPINE 30 MG TAB PO SCH (22:40)
[2018-12-30] MEDS: VANCOMYCIN HCL 125MG/5ML ORAL SOL PO SCH ×4 (00:07→18:00)
[2018-12-30 05:27] VITALS: BP 108/63
[2018-12-30] MEDS: CHOLESTYRAMINE 4 GM POWDER PO SCH ×4 (06:00→18:00)
[2018-12-30] MEDS: InsuLIN REG 1unit/0.01ml Soln (100units/ml) SC SCH ×4 (07:00→21:25)
[2018-12-30] MEDS: ACCU-CHEK COMFORT CURVE STRIP VI SCH ×4 (07:01→21:24)
[2018-12-30] MEDS: metroNIDAZOLE 500MG/100ML 100 ML IV SCH ×3 (07:01→21:24)
--- NOTE | 2018-12-30 07:46 | NUR ---
OPENING PATIENT in bed, bed in lowest position, call light within reach. No distress noted at this time. will continue to monitor this patient. rectal tube in place - intact, slight leakage, md miller is aware he will have gi re consult with this patient
[2018-12-30 08:00] VITALS: BP 126/71
[2018-12-30] MEDS: Glucerna Carbsteady SHAKE Vanilla 8oz PO SCH ×4 (08:00→18:00)
[2018-12-30] MEDS ORDERED: POTASSIUM CHL 20 Meq TABLET PO ONE (09:00)
[2018-12-30] MEDS: FLORASTOR (S. BOULARDII) 250 MG CAP PO SCH ×2 (10:00→21:24)
[2018-12-30] MEDS: POTASSIUM CHL 20 Meq TABLET PO SCH (10:00)
[2018-12-30] MEDS: DILTIAZEM HCL 120MG ER CAP PO SCH (10:00)
--- NOTE | 2018-12-30 10:00 | NUR ---
MORNING MEDICATIONS PATIENT REFUSING MORNING MEDICATIONS POTASSIUM AND BLOOD PRESSURE MEDICINES
[2018-12-30 12:00] VITALS: BP 135/82
[2018-12-30] MEDS: SODIUM FERR GLUC 62.5MG/5ML 125 MG in SODIUM CHL 0.9% 100 ML IV SCH (12:00)
[2018-12-30 17:00] VITALS: BP 137/82
--- NOTE | 2018-12-30 17:34 | NUR ---
repaging md mcbride per angela request to have this patient reconsulted
--- NOTE | 2018-12-30 18:55 | NUR ---
WOUND CARE NOTE: Wound care in to see patient for reevaluation of wounds. Patient continue resting on air bed in Rm 206. He's awak, alert and able to verbalize needs. He's in no stated pain at this time. He's max assist in turning and repositioning. His Aj score is 10. Skin assessment done with the help of nurse molding line assistant. Patient's sacral DTI (Deep tissue injury) is much improved, still display redness but blanchable. Patient is having loose stools and has rectal tube. He developed mild MASD. Patient is receiving BID/PRN cleaning and application of Cavilon skin protectant to lower buttocks and perirectal area and Z Guard cream to Rt and Lt. sacrum. Patient's Rt heel continue to display 3x3cm intact DTI. Patient's L heel Stage 1 pressure injury is improving and now display blanchable redness. Patient's RLE edematous and his Rt lateral foot noted with non-blanchable dark red area. New photograph of wounds are taken for reference. Repositioned patient for comfort on his back for dinner time. Reapplied [place] foam boots to BLE. Patient tolerated well. Bed in low position, nurse molding line assistant at bedside. RECOMMENDATION: Continuation of all wound care orders prescribed by MD, continue with skin/wound plan of care, continue monitoring by wound care while patient is hospitalized. Addendum: 12/30/18 at 1920 by Whitney Argueta RN Amended: Links added.
[2018-12-30] MEDS: MIRTAZAPINE 30 MG TAB PO SCH (21:24)
[2018-12-30 21:46] VITALS: BP 121/70
[2018-12-31] MEDS: VANCOMYCIN HCL 125MG/5ML ORAL SOL PO SCH ×5 (00:30→23:52)
[2018-12-31 04:40] VITALS: BP 111/69
[2018-12-31] MEDS: CHOLESTYRAMINE 4 GM POWDER PO SCH ×5 (06:00→23:52)
[2018-12-31] MEDS: InsuLIN REG 1unit/0.01ml Soln (100units/ml) SC SCH ×4 (06:17→22:00)
[2018-12-31] MEDS: metroNIDAZOLE 500MG/100ML 100 ML IV SCH ×3 (06:17→22:25)
[2018-12-31] MEDS: ACCU-CHEK COMFORT CURVE STRIP VI SCH ×4 (06:17→22:26)
[2018-12-31 06:19] LABS: Chloride 118 mmol/L (98-107); Sodium 144 mmol/L (136-145)
[2018-12-31 06:28] LABS: Alanine Aminotransferase < 6 U/L (16-61); Albumin 2.1 g/dL (3.4-5.0); Alkaline Phosphatase 45 U/L (45-117); Anion Gap 7 (5-15); Aspartate Aminotransferase 3 U/L (15-37); Bilirubin, Total 0.2 mg/dL (0.2-1.0); Blood Urea Nitrogen 44 mg/dL (7-18); Calcium 8.2 mg/dL (8.5-10.1); Carbon Dioxide 19 mmol/L (21-32); GFR African American 45 mL/min; GFR Non-African American 38 mL/min; Glucose 140 mg/dL (74-106)
[2018-12-31 06:35] LABS: Potassium 2.9 mmol/L (3.5-5.1)
--- NOTE | 2018-12-31 06:46 | NUR ---
Received call from labs. Patient with Critical K level at 2.9. Paged Dr. Mcintosh, left voicemail to call nurse for any orders. Awaiting call back.
[2018-12-31] MEDS: Glucerna Carbsteady SHAKE Vanilla 8oz PO SCH ×3 (08:00→18:00)
[2018-12-31 09:00] VITALS: BP 137/82
[2018-12-31] MEDS: POTASSIUM CHL 20 Meq TABLET PO SCH (09:36)
[2018-12-31] MEDS: DILTIAZEM HCL 120MG ER CAP PO SCH (09:37)
[2018-12-31] MEDS: FLORASTOR (S. BOULARDII) 250 MG CAP PO SCH ×2 (09:38→22:25)
[2018-12-31] MEDS: SODIUM BICARBONATE 50ML VIAL 50 ML, POTASSIUM CHLORIDE 20 MEQ in D5W 5% 1,000 ML IV SCH (12:10)
[2018-12-31] MEDS: SODIUM FERR GLUC 62.5MG/5ML 125 MG in SODIUM CHL 0.9% 100 ML IV SCH (12:10)
[2018-12-31 13:00] VITALS: BP 149/90
[2018-12-31 17:00] VITALS: BP 121/74
[2018-12-31 21:46] VITALS: BP 148/81
[2018-12-31] MEDS: MIRTAZAPINE 30 MG TAB PO SCH (22:26)
--- NOTE | 2019-01-01 | NUR ---
Patient refused Questran medication. Risk and benefits explained, however, patient still refused. Will continue to monitor.
[2019-01-01] MEDS: SODIUM BICARBONATE 50ML VIAL 50 ML, POTASSIUM CHLORIDE 20 MEQ in D5W 5% 1,000 ML IV SCH (02:42)
[2019-01-01 05:00] VITALS: BP 137/74
[2019-01-01] MEDS: CHOLESTYRAMINE 4 GM POWDER PO SCH ×3 (05:18→17:51)
[2019-01-01] MEDS: VANCOMYCIN HCL 125MG/5ML ORAL SOL PO SCH ×3 (05:19→17:19)
[2019-01-01] MEDS: metroNIDAZOLE 500MG/100ML 100 ML IV SCH ×3 (05:19→22:35)
[2019-01-01 06:21] LABS: Basophils # (auto) 0.1 uL; Basophils % (auto) 0.8 % (0.0-2.0); Eosinophils # (auto) 0.6 uL; Eosinophils % (auto) 6.5 % (0.0-7.0); Hematocrit 21.9 % (41.0-53.0); Hemoglobin 7.5 g/dL (13.5-17.5); Lymphocytes # (auto) 0.7 uL; Lymphocytes % (auto) 7.9 % (10.0-50.0); Mean Corpuscular Hemoglobin 29.1 pg (28.0-32.0); Mean Corpuscular Hgb Conc. 34.1 g/dL (32.0-36.0); Mean Corpuscular Volume 85.2 fL (80.0-100.0); Monocytes # (auto) 0.5 uL; Neutrophils # (auto) 6.7 uL; Neutrophils % (auto) 78.8 % (37.0-80.0); Platelet Count (auto) 396 10^3/uL (140-450); Red Blood Cells 2.57 10^6/uL (4.5-5.90); Red Cell Distribution Width 14.3 % (11.8-14.3); White Blood Cell 8.5 10^3/uL (4.4-10.8)
[2019-01-01 06:29] LABS: Chloride 115 mmol/L (98-107); Sodium 141 mmol/L (136-145)
[2019-01-01] MEDS: ACCU-CHEK COMFORT CURVE STRIP VI SCH ×4 (06:38→22:00)
[2019-01-01 06:39] LABS: Alanine Aminotransferase < 6 U/L (16-61); Albumin 2.1 g/dL (3.4-5.0); Alkaline Phosphatase 45 U/L (45-117); Anion Gap 8 (5-15); Aspartate Aminotransferase 5 U/L (15-37); BUN/Creatinine Ratio 23.1; Bilirubin, Total 0.2 mg/dL (0.2-1.0); Blood Urea Nitrogen 39 mg/dL (7-18); Calcium 7.9 mg/dL (8.5-10.1); Carbon Dioxide 18 mmol/L (21-32); GFR African American 52 mL/min; GFR Non-African American 43 mL/min; Glucose 165 mg/dL (74-106); Total Protein 4.9 g/dL (6.4-8.2)
[2019-01-01] MEDS: InsuLIN REG 1unit/0.01ml Soln (100units/ml) SC SCH ×4 (06:39→22:00)
[2019-01-01] MEDS: Glucerna Carbsteady SHAKE Vanilla 8oz PO SCH ×3 (08:00→18:00)
--- NOTE | 2019-01-01 08:00 | NUR ---
Morning note patient resting in bed with even and unlabored respirations, no distress noted. Instructed patient on POC, fall precautions and to call for assistance. Patient verbalized understanding. Fall precautions in place with bed in lowest locked position with call light within reach. Rectal tube in place, patent. Will continue to monitor q1hr & PRN.
--- NOTE | 2019-01-01 08:30 | NUR ---
SCDs placed per MD's order
[2019-01-01 09:00] VITALS: BP 124/72
[2019-01-01] MEDS: POTASSIUM CHL 20 Meq TABLET PO SCH (10:22)
[2019-01-01] MEDS: FLORASTOR (S. BOULARDII) 250 MG CAP PO SCH ×2 (10:22→22:35)
[2019-01-01] MEDS: DILTIAZEM HCL 120MG ER CAP PO SCH (10:23)
--- NOTE | 2019-01-01 11:20 | NUR ---
IV started 20g IV to the LFA started with clean technique by midline RN. IV secured. IV education provided to the patient. Patient verbalized understanding.
[2019-01-01] MEDS: POTASSIUM CHLORIDE IV SCH ×2 (11:26→23:07)
[2019-01-01] MEDS: D5W 5% IV SCH ×2 (11:26→23:07)
[2019-01-01] MEDS: SODIUM BICARBONATE IV SCH ×2 (11:26→23:07)
--- NOTE | 2019-01-01 12:12 | NUR ---
Patient refused ordered medication Patient refused Questran medication. Risk and benefits explained, however, patient still refused. Will continue to monitor.
[2019-01-01] MEDS: SODIUM FERR GLUC 62.5MG/5ML 125 MG in SODIUM CHL 0.9% 100 ML IV SCH (12:35)
[2019-01-01 13:00] VITALS: BP 119/71
[2019-01-01 17:00] VITALS: BP 117/69
--- NOTE | 2019-01-01 18:10 | NUR ---
RE: Rectal tube Rectal tube leaking at anus. Brown liquid stool leaking. Patient cleansed and z-guard applied to perianal area per MD's order. No skin breakdown noted. Called Dr. Mcintosh to notify. No answer. Voicemail left. Patient repositioned for comfort. Bed in lowest locked position with call light within reach.
--- NOTE | 2019-01-01 18:36 | NUR ---
Closing note patient resting in bed with even and unlabored respirations, no distress noted. Fall precautions in place with bed in lowest locked position, call light within reach. Bilateral izzy boots in place and bilateral SCDs in place per MD's order. Patient on speciality mattress per MD's order. Patient has been turned q2hr & PRN per MD's order.
--- NOTE | 2019-01-01 19:26 | NUR ---
Care endorsed to ALEAH Stephens.
--- NOTE | 2019-01-01 19:35 | NUR ---
Opening Shift Note Assumed care of patient, awake and alert. No S/S of distress/SOB or pain. Rectal tube in place, leakage noted. Abdi draining well. 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 Instructed on POC, turned to his side and every 2 hours. Changed pads and kept patient dry. Instructed to call for assist PRN, patient verbalized understanding, call light within reach, bed alarm on, will continue to monitor for changes Q1hr and PRN.
[2019-01-01 21:39] VITALS: BP 129/74
[2019-01-01] MEDS: MIRTAZAPINE 30 MG TAB PO SCH (22:35)
[2019-01-02] MEDS: VANCOMYCIN HCL 125MG/5ML ORAL SOL PO SCH ×5 (00:27→23:59)
[2019-01-02 04:54] VITALS: BP 147/85
[2019-01-02 05:41] LABS: Basophils # (auto) 0.1 uL; Eosinophils # (auto) 0.5 uL; Lymphocytes # (auto) 0.9 uL; Monocytes # (auto) 0.5 uL; Nucleated Red Blood Cells % 0.1 %; White Blood Cell 6.7 10^3/uL (4.4-10.8)
[2019-01-02 05:44] LABS: Basophils % (auto) 1.1 % (0.0-2.0); Eosinophils % (auto) 7.5 % (0.0-7.0); Hematocrit 21.5 % (41.0-53.0); Hemoglobin 7.3 g/dL (13.5-17.5); Lymphocytes % (auto) 13.5 % (10.0-50.0); Mean Corpuscular Hemoglobin 29.5 pg (28.0-32.0); Mean Corpuscular Hgb Conc. 34.1 g/dL (32.0-36.0); Mean Corpuscular Volume 86.4 fL (80.0-100.0); Monocytes % (auto) 7.2 % (0.0-12.0); Neutrophils # (auto) 4.8 uL; Neutrophils % (auto) 70.7 % (37.0-80.0); Platelet Count (auto) 343 10^3/uL (140-450); Red Blood Cells 2.49 10^6/uL (4.5-5.90); Red Cell Distribution Width 14.2 % (11.8-14.3)
[2019-01-02] MEDS: CHOLESTYRAMINE 4 GM POWDER PO SCH ×5 (06:00→16:14)
[2019-01-02 06:04] LABS: Chloride 114 mmol/L (98-107); Potassium 3.1 mmol/L (3.5-5.1); Sodium 142 mmol/L (136-145)
[2019-01-02 06:12] LABS: Alanine Aminotransferase < 6 U/L (16-61); Albumin 2.1 g/dL (3.4-5.0); Alkaline Phosphatase 42 U/L (45-117); Anion Gap 7 (5-15); Aspartate Aminotransferase 7 U/L (15-37); BUN/Creatinine Ratio 21.9; Bilirubin, Total 0.2 mg/dL (0.2-1.0); Blood Urea Nitrogen 35 mg/dL (7-18); Carbon Dioxide 21 mmol/L (21-32); GFR African American 56 mL/min; GFR Non-African American 46 mL/min; Glucose 138 mg/dL (74-106); Total Protein 4.7 g/dL (6.4-8.2)
[2019-01-02] MEDS: metroNIDAZOLE 500MG/100ML 100 ML IV SCH ×3 (06:52→21:38)
[2019-01-02] MEDS: InsuLIN REG 1unit/0.01ml Soln (100units/ml) SC SCH ×4 (06:53→21:39)
[2019-01-02] MEDS: ACCU-CHEK COMFORT CURVE STRIP VI SCH ×4 (06:53→21:27)
[2019-01-02 09:00] VITALS: BP 116/71
[2019-01-02] MEDS: POTASSIUM CHL 20 Meq TABLET PO SCH (09:50)
[2019-01-02] MEDS: FLORASTOR (S. BOULARDII) 250 MG CAP PO SCH ×4 (09:51→21:38)
[2019-01-02] MEDS: DILTIAZEM HCL 120MG ER CAP PO SCH (09:51)
[2019-01-02] MEDS: Glucerna Carbsteady SHAKE Vanilla 8oz PO SCH ×3 (09:52→17:25)
[2019-01-02] MEDS: SODIUM BICARBONATE IV SCH ×2 (12:29→19:27)
[2019-01-02] MEDS: POTASSIUM CHLORIDE IV SCH ×2 (12:29→19:27)
[2019-01-02] MEDS: D5W 5% IV SCH ×2 (12:29→19:27)
[2019-01-02] MEDS: ALBUMIN 25% 100 ML IV SCH ×2 (12:29→21:37)
[2019-01-02 13:00] VITALS: BP 130/74
[2019-01-02] MEDS: SODIUM FERR GLUC 62.5MG/5ML 125 MG in SODIUM CHL 0.9% 100 ML IV SCH (13:06)
[2019-01-02] MEDS: BUMETANIDE 1mg/4ml VIAL (0.25mg/ml) IV SCH ×2 (13:20→23:21)
[2019-01-02 13:41] LABS: Protein, Urine 33.3 mg/dL (0.0-11.9)
[2019-01-02] MEDS ORDERED: POTASSIUM EFFERVESENT TAB 25 MEQ PO ONE (14:00)
[2019-01-02 17:00] VITALS: BP 132/73
--- NOTE | 2019-01-02 19:53 | NUR ---
Opening Note Assumed pt care from day shift nurse. Pt is a/ox4 with no s/s of distress or SOB. Pt is currently laying in bed complaining of a slight cough. Discussed POC with pt, pt verbalized understanding. Abdi is patent as well as rectal tube. Safety measures maintained with call light within reach, bed in lowest position and side rails up. Will continue to monitor for changes q1hr and prn.
[2019-01-02] MEDS: MIRTAZAPINE 30 MG TAB PO SCH (21:37)
[2019-01-02 22:00] VITALS: BP 143/82
--- NOTE | 2019-01-03 00:02 | NUR ---
Pt Refused Medication Pt refused Tere, educated pt on purpose of medication, pt stated that he does not like the way the medication tastes.
[2019-01-03] MEDS: D5W 5% IV SCH ×2 (04:27→11:46)
[2019-01-03] MEDS: POTASSIUM CHLORIDE IV SCH ×2 (04:27→11:46)
[2019-01-03] MEDS: SODIUM BICARBONATE IV SCH ×2 (04:27→11:46)
[2019-01-03 05:00] VITALS: BP 143/80
[2019-01-03 05:34] LABS: Basophils # (auto) 0.1 uL; Basophils % (auto) 0.8 % (0.0-2.0); Eosinophils # (auto) 0.5 uL; Eosinophils % (auto) 6.6 % (0.0-7.0); Hematocrit 22.2 % (41.0-53.0); Hemoglobin 7.6 g/dL (13.5-17.5); Lymphocytes # (auto) 0.7 uL; Lymphocytes % (auto) 9.4 % (10.0-50.0); Mean Corpuscular Hemoglobin 29.2 pg (28.0-32.0); Mean Corpuscular Hgb Conc. 34.3 g/dL (32.0-36.0); Monocytes # (auto) 0.5 uL; Monocytes % (auto) 6.6 % (0.0-12.0); Neutrophils % (auto) 76.6 % (37.0-80.0); Platelet Count (auto) 413 10^3/uL (140-450); Red Blood Cells 2.62 10^6/uL (4.5-5.90); Red Cell Distribution Width 14.7 % (11.8-14.3); White Blood Cell 7.8 10^3/uL (4.4-10.8)
[2019-01-03] MEDS: CHOLESTYRAMINE 4 GM POWDER PO SCH ×4 (06:00→22:16)
[2019-01-03 06:16] LABS: Albumin 2.7 g/dL (3.4-5.0); Anion Gap 8 (5-15); Blood Urea Nitrogen 33 mg/dL (7-18); Carbon Dioxide 22 mmol/L (21-32); Chloride 109 mmol/L (98-107); Glucose 124 mg/dL (74-106); Potassium 3.5 mmol/L (3.5-5.1); Sodium 139 mmol/L (136-145)
[2019-01-03] MEDS: ACCU-CHEK COMFORT CURVE STRIP VI SCH ×4 (06:17→21:25)
[2019-01-03] MEDS: VANCOMYCIN HCL 125MG/5ML ORAL SOL PO SCH ×4 (06:17→23:20)
[2019-01-03] MEDS: metroNIDAZOLE 500MG/100ML 100 ML IV SCH ×3 (06:17→22:16)
[2019-01-03 06:20] LABS: Alanine Aminotransferase < 6 U/L (16-61); Alkaline Phosphatase 43 U/L (45-117); Aspartate Aminotransferase 8 U/L (15-37); BUN/Creatinine Ratio 20.1; Bilirubin, Total 0.3 mg/dL (0.2-1.0); GFR African American 54 mL/min; GFR Non-African American 45 mL/min; Total Protein 5.4 g/dL (6.4-8.2)
[2019-01-03] MEDS: InsuLIN REG 1unit/0.01ml Soln (100units/ml) SC SCH ×4 (06:23→21:25)
[2019-01-03] MEDS: Glucerna Carbsteady SHAKE Vanilla 8oz PO SCH ×3 (08:00→17:51)
[2019-01-03 09:00] VITALS: BP 126/75
[2019-01-03] MEDS: ALBUMIN 25% 100 ML IV SCH ×2 (09:54→20:47)
[2019-01-03] MEDS: FLORASTOR (S. BOULARDII) 250 MG CAP PO SCH ×3 (10:00→20:45)
[2019-01-03] MEDS: DILTIAZEM HCL 120MG ER CAP PO SCH (10:09)
[2019-01-03] MEDS: BUMETANIDE 1mg/4ml VIAL (0.25mg/ml) IV SCH ×2 (10:37→22:16)
[2019-01-03] MEDS: POTASSIUM CHL 20 Meq TABLET PO SCH (10:37)
[2019-01-03 13:00] VITALS: BP 128/81
[2019-01-03] MEDS: SODIUM FERR GLUC 62.5MG/5ML 125 MG in SODIUM CHL 0.9% 100 ML IV SCH (13:00)
[2019-01-03] MEDS ORDERED: POTASSIUM EFFERVESENT TAB 25 MEQ PO ONE (14:00)
[2019-01-03] MEDS ORDERED: CHOLESTYRAMINE 4 GM POWDER GT ONE (14:15)
[2019-01-03 17:00] VITALS: BP 132/68
--- NOTE | 2019-01-03 19:21 | NUR ---
Opening Note Assumed pt care from day shift nurse. Pt is a/ox4 with no s/s of distress or SOB. Pt is currently laying in bed with no complaints. Discussed POC with pt; pt verbalized understanding. Safety measures maintained with call light within reach, bed in lowest position and call light within reach. Will continue to monitor for changes q1hr and prn.
[2019-01-03] MEDS: MIRTAZAPINE 30 MG TAB PO SCH (20:45)
[2019-01-03 22:00] VITALS: BP 138/73
[2019-01-03] MEDS ORDERED: CHOLESTYRAMINE 4 GM POWDER GT SCH (22:00)
[2019-01-03] MEDS ORDERED: BUMETANIDE 1mg/4ml VIAL (0.25mg/ml) ONE (22:14)
[2019-01-04] MEDS: D5W 5% IV SCH ×2 (04:40→06:50)
[2019-01-04] MEDS: POTASSIUM CHLORIDE IV SCH ×2 (04:40→06:50)
[2019-01-04] MEDS: SODIUM BICARBONATE IV SCH ×2 (04:40→06:50)
[2019-01-04 04:57] LABS: Basophils # (auto) 0.1 uL; Basophils % (auto) 1.1 % (0.0-2.0); Eosinophils # (auto) 0.4 uL; Eosinophils % (auto) 6.8 % (0.0-7.0); Hematocrit 21.2 % (41.0-53.0); Hemoglobin 7.5 g/dL (13.5-17.5); Lymphocytes # (auto) 0.8 uL; Lymphocytes % (auto) 13.1 % (10.0-50.0); Mean Corpuscular Hemoglobin 29.7 pg (28.0-32.0); Mean Corpuscular Hgb Conc. 35.4 g/dL (32.0-36.0); Mean Corpuscular Volume 83.9 fL (80.0-100.0); Monocytes # (auto) 0.5 uL; Monocytes % (auto) 8.3 % (0.0-12.0); Neutrophils # (auto) 4.4 uL; Neutrophils % (auto) 70.7 % (37.0-80.0); Platelet Count (auto) 388 10^3/uL (140-450); Red Blood Cells 2.53 10^6/uL (4.5-5.90); Red Cell Distribution Width 14.7 % (11.8-14.3); White Blood Cell 6.2 10^3/uL (4.4-10.8)
[2019-01-04 05:00] VITALS: BP 147/81
[2019-01-04] MEDS: metroNIDAZOLE 500MG/100ML 100 ML IV SCH ×3 (05:17→21:48)
[2019-01-04] MEDS: VANCOMYCIN HCL 125MG/5ML ORAL SOL PO SCH ×3 (05:17→17:46)
[2019-01-04 05:25] LABS: Albumin 3.2 g/dL (3.4-5.0); BUN/Creatinine Ratio 18.5; Calcium 8.1 mg/dL (8.5-10.1); Potassium 3.2 mmol/L (3.5-5.1)
[2019-01-04 05:28] LABS: Bilirubin, Total 0.3 mg/dL (0.2-1.0); Total Protein 5.3 g/dL (6.4-8.2)
[2019-01-04] MEDS: ACCU-CHEK COMFORT CURVE STRIP VI SCH ×4 (06:05→21:49)
[2019-01-04] MEDS: InsuLIN REG 1unit/0.01ml Soln (100units/ml) SC SCH ×4 (06:12→21:49)
--- NOTE | 2019-01-04 08:40 | NUR ---
PT RESTING IN BED FINISHING BREAKFAST WITH GLOVE FORMER. PT HAD A SMALL BROWN LIQUID BM. PT VINEET AREA AND BACKSIDE CLEANED. PT REPOSITIONED TO RIGHT SIDE. PT REPORTS NO PAIN AT THIS TIME. PT ENCOURAGED TO USE CALL LIGHT PRN, WILL CONTINUE TO MONITOR.
[2019-01-04 09:00] VITALS: BP 145/84
[2019-01-04 10:06] LABS: Immunoglobulin G, Serum 796 mg/dL (700-1600)
[2019-01-04] MEDS: Glucerna Carbsteady SHAKE Vanilla 8oz PO SCH ×3 (10:14→17:47)
[2019-01-04] MEDS: FLORASTOR (S. BOULARDII) 250 MG CAP PO SCH ×2 (10:15→21:47)
[2019-01-04] MEDS: POTASSIUM CHL 20 Meq TABLET PO SCH (10:16)
[2019-01-04] MEDS: DILTIAZEM HCL 120MG ER CAP PO SCH (10:16)
[2019-01-04] MEDS: CHOLESTYRAMINE 4 GM POWDER PO SCH (10:17)
--- NOTE | 2019-01-04 10:30 | NUR ---
PT REPOSITIONED TO SUPINE. 350 MLS CLEAR YELLOW URINE NOTED IN WEBSTER.
[2019-01-04] MEDS: SODIUM FERR GLUC 62.5MG/5ML 125 MG in SODIUM CHL 0.9% 100 ML IV SCH (11:31)
--- NOTE | 2019-01-04 11:45 | NUR ---
PT REPOSITIONED TO RIGHT SIDE, WILL CONTINUE TO MONITOR. Signed: 01/04/19 at 1145 by DANIELLE BARKSDALE RN Addendum: 01/04/19 at 1146 by DANIELLE BARKSDALE RN LEFT SIDE, NOT RIGHT. Signed: 01/04/19 at 1146 by DANIELLE BARKSDALE RN
[2019-01-04 13:04] VITALS: BP 151/80
--- NOTE | 2019-01-04 14:08 | NUR ---
PT HAS ORDER FOR MIDLINE PLACED ON THE 4TH, CALLED PBX AND PAGED PICC NURSE, AWAITING CALL BACK.
--- NOTE | 2019-01-04 14:23 | NUR ---
PT REPOSITIONED TO SUPINE.
--- NOTE | 2019-01-04 16:10 | NUR ---
PT REPOSITIONED TO RIGHT SIDE. RAIL DOWELING MACHINE OPERATOR REPORTS SHE SENT STOOL SAMPLE FOR C DIFF.
[2019-01-04 17:00] VITALS: BP 138/72
--- NOTE | 2019-01-04 18:01 | NUR ---
PT REPOSITIONED TO SUPINE. DR GODWIN SAW PATIENT, NEW ORDERS FOR QUESTRAN 4 TIMES DAILY.
[2019-01-04 21:38] VITALS: BP 130/74
[2019-01-04] MEDS: MIRTAZAPINE 30 MG TAB PO SCH (21:48)
--- NOTE | 2019-01-04 23:30 | NUR ---
Patient linen change Patient given linen change after incontinence of stool. Skin integrity assessed for any changes. Linens changed. Patient repositioned for comfort.
[2019-01-05] MEDS: CHOLESTYRAMINE 4 GM POWDER PO SCH ×4 (00:45→17:50)
[2019-01-05] MEDS: VANCOMYCIN HCL 125MG/5ML ORAL SOL PO SCH ×5 (00:46→23:01)
[2019-01-05 05:03] VITALS: BP 141/72
[2019-01-05 06:22] LABS: Basophils # (auto) 0.1 uL; Basophils % (auto) 1.1 % (0.0-2.0); Eosinophils # (auto) 0.3 uL; Eosinophils % (auto) 4.8 % (0.0-7.0); Hematocrit 19.4 % (41.0-53.0); Lymphocytes # (auto) 0.7 uL; Lymphocytes % (auto) 10.5 % (10.0-50.0); Mean Corpuscular Hemoglobin 28.7 pg (28.0-32.0); Mean Corpuscular Hgb Conc. 33.8 g/dL (32.0-36.0); Monocytes # (auto) 0.6 uL; Monocytes % (auto) 8.8 % (0.0-12.0); Neutrophils # (auto) 4.9 uL; Neutrophils % (auto) 74.8 % (37.0-80.0); Platelet Count (auto) 396 10^3/uL (140-450); Red Blood Cells 2.28 10^6/uL (4.5-5.90); Red Cell Distribution Width 15.3 % (11.8-14.3); White Blood Cell 6.6 10^3/uL (4.4-10.8)
[2019-01-05] MEDS: metroNIDAZOLE 500MG/100ML 100 ML IV SCH ×3 (06:22→21:56)
[2019-01-05] MEDS: ACCU-CHEK COMFORT CURVE STRIP VI SCH ×4 (06:28→22:59)
[2019-01-05] MEDS: InsuLIN REG 1unit/0.01ml Soln (100units/ml) SC SCH ×4 (06:30→23:00)
[2019-01-05 06:33] LABS: Hemoglobin 6.5 g/dL (13.5-17.5)
--- NOTE | 2019-01-05 06:52 | NUR ---
MD Called/paged Hospitalist called re:hgb 6.5 . Waiting for call back. Continue care.
--- NOTE | 2019-01-05 07:30 | NUR ---
Endorsed care to Chantell BULLARD
--- NOTE | 2019-01-05 07:40 | NUR ---
OPENING NOTE Assumed care of patient from NOC RNJackie. Patient awake and alert with no S/S of distress/SOB or pain. Instructed on POC and to call for assist PRN, verbalized understanding. [place] boots to bilateral lower extremities. Abdi catheter intact/ patent and hung below bed. Bed in lowest, locked position with side rails up x2. Fall precautions in place and call light within reach. Will continue to monitor for changes Q1hr and PRN.
--- NOTE | 2019-01-05 07:47 | NUR ---
Called/paged Dr. Mcintosh paged on exchange re:critical hgb 6.5 . Waiting for call back. Continue care.
[2019-01-05] MEDS: Glucerna Carbsteady SHAKE Vanilla 8oz PO SCH ×3 (07:55→17:50)
[2019-01-05 09:00] VITALS: BP 130/70
[2019-01-05] MEDS: FLORASTOR (S. BOULARDII) 250 MG CAP PO SCH ×2 (09:35→23:00)
[2019-01-05] MEDS: DILTIAZEM HCL 120MG ER CAP PO SCH (09:35)
[2019-01-05] MEDS: POTASSIUM CHL 20 Meq TABLET PO SCH (09:36)
--- NOTE | 2019-01-05 10:18 | NUR ---
BM Patient had small loose BM. Sacral area cleaned, Z-guard applied. Patient placed on right side to alleviate sacral pressure. Will continue to monitor area and turn patient Q2hr.
--- NOTE | 2019-01-05 11:18 | NUR ---
PAGED Left message with Dr. Mcintosh's office regarding critical Hgb level, 6.5. Awaiting call back.
[2019-01-05] MEDS: SODIUM FERR GLUC 62.5MG/5ML 125 MG in SODIUM CHL 0.9% 100 ML IV SCH (12:27)
[2019-01-05 13:00] VITALS: BP 143/69
--- NOTE | 2019-01-05 16:33 | NUR ---
PAGED Left message with Dr. Mcintosh's office regarding critical Hgb level, 6.5. Awaiting call back.
[2019-01-05 17:10] VITALS: BP 113/54
--- NOTE | 2019-01-05 17:32 | NUR ---
BM Patient had small loose BM. Sacral area cleaned, Z-guard applied. Will continue to monitor area and turn patient Q2hr.
[2019-01-05] MEDS: D5W 5% IV SCH (17:49)
[2019-01-05] MEDS: SODIUM BICARBONATE IV SCH (17:49)
[2019-01-05] MEDS: POTASSIUM CHLORIDE IV SCH (17:49)
--- NOTE | 2019-01-05 18:28 | NUR ---
AT BEDSIDE Dr. Mcintosh at patient's bedside. Aware of critical Hgb level, new order for 1 unit of PRBC's.
--- NOTE | 2019-01-05 19:22 | NUR ---
CLOSING NOTE Endorsed care of patient to NOC RNPaulette. Aware of pending transfusion of PRBC's
[2019-01-05 21:00] VITALS: BP 111/61
[2019-01-05] MEDS: MIRTAZAPINE 30 MG TAB PO SCH (23:00)
[2019-01-06] VITALS (9 sets, daily range): BP systolic 130–161; BP diastolic 67–85
--- NOTE | 2019-01-06 00:21 | NUR ---
PRBC transfusion started as ordered by MD, after verification with another RN, and after taking baseline vital signs. Patient advised to call for any possible blood transfusion reaction including but not limited to rash, itchiness, back pain, hives. Patient will be closely monitored.
--- NOTE | 2019-01-06 01:00 | NUR ---
Blood still transfusing, patient tolerating well, no signs nor symptoms of blood transfusion reaction. Close monitoring continued.
--- NOTE | 2019-01-06 02:00 | NUR ---
Blood still transfusing, patient tolerating well, no signs nor symptoms of blood transfusion reaction. Close monitoring continued.
--- NOTE | 2019-01-06 03:07 | NUR ---
Blood transfusion completed. Patient tolerated procedure well. No signs nor symptoms of blood transfusion reaction. Care continued.
[2019-01-06] MEDS: CHOLESTYRAMINE 4 GM POWDER PO SCH ×4 (06:00→18:00)
[2019-01-06] MEDS: VANCOMYCIN HCL 125MG/5ML ORAL SOL PO SCH ×4 (06:25→22:52)
[2019-01-06] MEDS: ACCU-CHEK COMFORT CURVE STRIP VI SCH ×4 (06:26→21:40)
[2019-01-06] MEDS: metroNIDAZOLE 500MG/100ML 100 ML IV SCH ×3 (06:26→21:41)
[2019-01-06] MEDS: InsuLIN REG 1unit/0.01ml Soln (100units/ml) SC SCH ×4 (06:26→22:00)
[2019-01-06 07:06] LABS: Basophils # (auto) 0.1 uL; Basophils % (auto) 0.9 % (0.0-2.0); Eosinophils # (auto) 0.2 uL; Eosinophils % (auto) 3.8 % (0.0-7.0); Hematocrit 27.2 % (41.0-53.0); Hemoglobin 9.3 g/dL (13.5-17.5); Lymphocytes # (auto) 0.8 uL; Lymphocytes % (auto) 12.8 % (10.0-50.0); Mean Corpuscular Hemoglobin 29.7 pg (28.0-32.0); Mean Corpuscular Hgb Conc. 34.2 g/dL (32.0-36.0); Mean Corpuscular Volume 86.9 fL (80.0-100.0); Monocytes # (auto) 0.5 uL; Monocytes % (auto) 8.2 % (0.0-12.0); Neutrophils # (auto) 4.7 uL; Neutrophils % (auto) 74.3 % (37.0-80.0); Platelet Count (auto) 363 10^3/uL (140-450); Red Blood Cells 3.14 10^6/uL (4.5-5.90); Red Cell Distribution Width 16.2 % (11.8-14.3); White Blood Cell 6.4 10^3/uL (4.4-10.8)
[2019-01-06 07:23] LABS: Albumin 2.9 g/dL (3.4-5.0); Calcium 8.5 mg/dL (8.5-10.1); Potassium 3.4 mmol/L (3.5-5.1)
[2019-01-06 07:26] LABS: BUN/Creatinine Ratio 20.9; Bilirubin, Total 0.3 mg/dL (0.2-1.0); Phosphorus 2.4 mg/dL (2.5-4.90); Total Protein 5.9 g/dL (6.4-8.2)
--- NOTE | 2019-01-06 07:33 | NUR ---
OPENING NOTE Assumed care of patient from NOC RN, Paulette. Patient awake and alert with no S/S of distress/SOB or pain. Instructed on POC and to call for assist PRN, verbalized understanding. [place] boots to bilateral lower extremities. Abdi catheter intact/ patent and hung below bed. Bed in lowest, locked position with side rails up x2. Fall precautions in place and call light within reach. Will continue to monitor for changes Q1hr and PRN.
[2019-01-06] MEDS: Glucerna Carbsteady SHAKE Vanilla 8oz PO SCH ×3 (08:00→18:06)
[2019-01-06] MEDS: POTASSIUM CHL 20 Meq TABLET PO SCH (10:11)
[2019-01-06] MEDS: FLORASTOR (S. BOULARDII) 250 MG CAP PO SCH ×2 (10:11→21:41)
[2019-01-06] MEDS: DILTIAZEM HCL 120MG ER CAP PO SCH (10:12)
--- NOTE | 2019-01-06 10:16 | NUR ---
BM Patient had small, loose bm. Sacral area with redness, z-guard applied. Pillow placed underneath right side to alleviate sacral pressure. Will continue to monitor area and turn patient Q2hr.
[2019-01-06] MEDS: SODIUM BICARBONATE 50ML VIAL 50 ML in D5W/SOD CHL 0.45% 1,000 ML IV SCH (10:52)
--- NOTE | 2019-01-06 12:54 | NUR ---
Nutrition Follow-up Notes Wt.: 107.8 kg Pt's in asleep, no signs of distress noted earlier, currently on CCHO 60 gms/meal, Low Fiber/Residue diet with Glucerna Shakes 1 carton BID, with adequate PO of 100% x 6 per RN doc. pt with Cdiff Est. Needs BW [id number] kcal (25-30 kcal/kgBW), 63-79 gms pro (0.8-1.0 gms/kgBW d/t elev RFT CKD, wounds, severe hypoalbuminemia). Will continue to monitor pertinent labs and reassess nutrient need prn Labs: BUN 36 H, CREAT 1.72 H, GLU 132 H, ALB 2.9 L. Skin: Aj scale 13, mod risk pt with multiple pressure ulcers, left lower buttocks MASD per RN doc. Pls refer to grain broker and market operator's notes for details re: tx plans GI: Pt had 3 ml BM 7/7 per stationary fireman. PES: Altered nutrition related lab values r/t acute/chronic medical condition aeb elev RFT hypocalcemia, severe hypoalb, hyperglycemia Inadequate PO intake r/t current GI condition aeb pt`s with recorded PO < 75% and with diarr Will continue to monitor PO intake, skin status, pertinent labs and weight trend. F/u in 3t o 5 days. Rec.: 1.) If renal labs continue trending up, consider Renal Specific 70 gms protein, 2 gm Na in addition to current diet. 2.) Consider enter order for daily MVI with minerals and Asc acid 500 mgs BID, already e-signed approved by . 3.) If Albumin level continues trending down with improved renal labs, consider Prostat 1 pkt BID. 4.) Consider close supervision and feeding assistance prn during meals 5.) Refer to CDE/RD for further nutrition education and weight monitoring upon discharged. 6.) Continue current plan of care.
--- NOTE | 2019-01-06 18:10 | NUR ---
REFUSED MED Patient refused Questran.
--- NOTE | 2019-01-06 19:29 | NUR ---
CLOSING NOTE Endorsed care of patient to NOC RNPaulette.
[2019-01-06] MEDS: MIRTAZAPINE 30 MG TAB PO SCH (21:41)
[2019-01-07] MEDS: SODIUM BICARBONATE 50ML VIAL 50 ML in D5W/SOD CHL 0.45% 1,000 ML IV SCH ×3 (00:40→17:22)
[2019-01-07] MEDS: CHOLESTYRAMINE 4 GM POWDER PO SCH ×4 (00:40→17:21)
[2019-01-07 04:34] VITALS: BP 148/76
[2019-01-07] MEDS: metroNIDAZOLE 500MG/100ML 100 ML IV SCH ×3 (05:32→22:49)
[2019-01-07] MEDS: VANCOMYCIN HCL 125MG/5ML ORAL SOL PO SCH ×4 (05:34→22:49)
[2019-01-07] MEDS: ACCU-CHEK COMFORT CURVE STRIP VI SCH ×4 (06:37→22:48)
[2019-01-07] MEDS: InsuLIN REG 1unit/0.01ml Soln (100units/ml) SC SCH ×3 (06:38→17:00)
[2019-01-07 08:00] VITALS: BP 152/87
[2019-01-07] MEDS: Glucerna Carbsteady SHAKE Vanilla 8oz PO SCH ×3 (08:00→17:21)
[2019-01-07] MEDS ORDERED: POTASSIUM CHL 20MEQ/100ML 100 ML IV SCH (08:45)
[2019-01-07] MEDS: POTASSIUM CHL 20 Meq TABLET PO SCH (09:33)
[2019-01-07] MEDS: FLORASTOR (S. BOULARDII) 250 MG CAP PO SCH ×2 (09:33→22:49)
[2019-01-07] MEDS: DILTIAZEM HCL 120MG ER CAP PO SCH (09:34)
[2019-01-07] MEDS ORDERED: POTASSIUM CHL 20MEQ/100ML 100 ML IV ONE (10:00)
--- NOTE | 2019-01-07 11:10 | NUR ---
WOUND CARE NOTE: IN TO SEE PATIENT AT THIS TIME FOR WOUND REEVALUATION. PATIENT CONTINUES TO REST ON SPECIALTY AIR MATTRESS AT THIS TIME. HE IS IN NO STATED PAIN. PATIENT HAS CURRENT YAIMA SCORE OF 12. HE CONTINUES TO BE MAX ASSIST FOR HIS ADL'S, INCLUDING TURNING/REPOSITIONING. NEW WOUND PHOTOS TAKEN AT THIS TIME FOR REFERENCE. PATIENT'S DTI TO THE RIGHT SACRUM IS MUCH IMPROVED, WITH NO PURPLE ECCHYMOTIC AREAS NOTED. SKIN TO THIS AREA IS DARK RED, NON BLANCHABLE. LEFT SACRUM STAGE 1 HAS RESOLVED, WITH PINK, BLANCHABLE SKIN NOTED. MOISTURE BARRIER CREAM AND OPTIFOAM GENTLE SACRAL DRESSING APPLIED PER MD ORDER.RIGHT/LEFT FEET HEEL WOUNDS CONTINUE TO BE INTACT, LEFT OPEN TO AIR. JESSIKA FOAM BOOTS APPLIED TO BOTH FEET. LEFT HEEL STAGE 1 HAS RESOLVED, AND IS NOW PINK, BLANCHABLE. RECOMMEND: CONTINUATION WITH ALL WOUND CARE ORDERS PREVIOUSLY PRESCRIBED BY MD. WOUND CARE TEAM WILL CONTINUE TO MONITOR. Addendum: 01/07/19 at 1751 by Cinthya Cerrato RN Amended: Links added.
[2019-01-07 12:37] VITALS: BP 149/81
[2019-01-07 16:18] VITALS: BP 171/86
--- NOTE | 2019-01-07 18:00 | NUR ---
Pt showing no change from initial assessment. Pt alert and oriented. No c/o pain or discomfort during this shift. IV patent, site clear to right hand. 20Meq K-rider infused without difficulty. Total care maintained.
[2019-01-07 22:00] VITALS: BP 152/87
[2019-01-07] MEDS: MIRTAZAPINE 30 MG TAB PO SCH (22:49)
[2019-01-08] MEDS: CHOLESTYRAMINE 4 GM POWDER PO SCH ×5 (00:05→23:40)
[2019-01-08] MEDS: InsuLIN REG 1unit/0.01ml Soln (100units/ml) SC SCH (00:05)
[2019-01-08] MEDS: SODIUM BICARBONATE 50ML VIAL 50 ML in D5W/SOD CHL 0.45% 1,000 ML IV SCH ×3 (04:19→23:16)
[2019-01-08 05:00] VITALS: BP 178/89
[2019-01-08] MEDS: VANCOMYCIN HCL 125MG/5ML ORAL SOL PO SCH ×4 (05:10→23:40)
[2019-01-08] MEDS: metroNIDAZOLE 500MG/100ML 100 ML IV SCH ×2 (05:51→14:13)
[2019-01-08] MEDS: Glucerna Carbsteady SHAKE Vanilla 8oz PO SCH ×3 (08:00→18:06)
[2019-01-08 08:15] LABS: BUN/Creatinine Ratio 21.1; Potassium 3.7 mmol/L (3.5-5.1)
[2019-01-08 08:19] VITALS: BP 154/93
[2019-01-08] MEDS: DILTIAZEM HCL 120MG ER CAP PO SCH (09:45)
[2019-01-08] MEDS: FLORASTOR (S. BOULARDII) 250 MG CAP PO SCH ×2 (09:45→20:36)
[2019-01-08] MEDS: POTASSIUM CHL 20 Meq TABLET PO SCH (09:46)
[2019-01-08 13:00] VITALS: BP 152/91
[2019-01-08 17:06] VITALS: BP 153/92
[2019-01-08] MEDS: MIRTAZAPINE 30 MG TAB PO SCH (20:36)
--- NOTE | 2019-01-08 20:42 | NUR ---
Dr. Mcintosh notified of negative c-diff result and Vancomycin po order, said he will do it in am.
[2019-01-08 22:00] VITALS: BP 152/82
--- NOTE | 2019-01-08 22:00 | NUR ---
Repositioned, ildefonso-care, had loose bowel movement.
--- NOTE | 2019-01-08 23:30 | NUR ---
Patient had loose bowel movement, cleaned, and repositioned.
[2019-01-09 05:00] VITALS: BP 162/91
[2019-01-09] MEDS: CHOLESTYRAMINE 4 GM POWDER PO SCH ×4 (05:44→23:37)
[2019-01-09] MEDS: VANCOMYCIN HCL 125MG/5ML ORAL SOL PO SCH ×2 (05:44→13:50)
[2019-01-09] MEDS: Glucerna Carbsteady SHAKE Vanilla 8oz PO SCH ×3 (08:00→18:00)
--- NOTE | 2019-01-09 08:00 | NUR ---
Opening Note Assumed care of patient. He is A & O x4, no s/s of distress at this time. POC discussed with patient. Patient is comfortable at this time, will continue to turn Q2h and treat wounds at instructed. Patient needs to be fed, and cannot use the call light due to hand weakness. Will continue to monitor Q1h and PRN. Specialty mattress being used, SCDs on, and bed is in low, locked, position with bed alarms on.
--- NOTE | 2019-01-09 08:49 | NUR ---
Patient BP elevated, paged Dr. Mcintosh. Patient BP was elevated per BRIDGE CONTRACTOR in the 181/95, HR 88. Went to recheck, BP was 172/95, HR 91. Patient in no s/s of distress. No PRN medications for elevated BP, will await call back from MD. Will medicate per orders.
[2019-01-09 09:00] VITALS: BP 181/95
[2019-01-09 09:10] LABS: BUN/Creatinine Ratio 21.9; Potassium 3.7 mmol/L (3.5-5.1)
--- NOTE | 2019-01-09 10:00 | NUR ---
Pharmacy called C-diff stool culture is negative, would like to know if Dr. Mcintosh would like to continue Vancomycin at this time. Will await orders from Dr. Mcintosh.
[2019-01-09] MEDS: FLORASTOR (S. BOULARDII) 250 MG CAP PO SCH ×2 (11:04→20:23)
[2019-01-09] MEDS: DILTIAZEM HCL 120MG ER CAP PO SCH (11:04)
[2019-01-09] MEDS: POTASSIUM CHL 20 Meq TABLET PO SCH (11:05)
--- NOTE | 2019-01-09 11:10 | NUR ---
Rechecked BP BP is coming down 158/87, HR 91. Will continue to monitor.
[2019-01-09 13:00] VITALS: BP 139/79
--- NOTE | 2019-01-09 15:00 | NUR ---
Patient had a bowel movement Stool is still loose, but no longer liquid. No foul odor. Some mucus present. Will continue to monitor.
[2019-01-09 17:00] VITALS: BP 176/87
--- NOTE | 2019-01-09 17:48 | NUR ---
Dr. Mcintosh at bedside Orders received, read back and verified. Notified doctor of elevated blood pressure, sediment in urine. Can discontinue contact precautions, can discontinue vancomycin. Will follow through with orders.
[2019-01-09] MEDS: SODIUM BICARBONATE 50ML VIAL 50 ML in D5W/SOD CHL 0.45% 1,000 ML IV SCH ×2 (18:25→22:15)
[2019-01-09] MEDS: METOPROLOL TARTRATE 25 MG TAB PO SCH (18:25)
[2019-01-09] MEDS: MIRTAZAPINE 30 MG TAB PO SCH (20:23)
[2019-01-09 22:00] VITALS: BP 140/73
[2019-01-10 05:25] VITALS: BP 154/81
[2019-01-10] MEDS: METOPROLOL TARTRATE 25 MG TAB PO SCH (05:35)
[2019-01-10] MEDS: CHOLESTYRAMINE 4 GM POWDER PO SCH ×2 (05:36→12:00)
[2019-01-10 06:09] LABS: Calcium 7.9 mg/dL (8.5-10.1); Potassium 3.7 mmol/L (3.5-5.1)
[2019-01-10 06:17] LABS: BUN/Creatinine Ratio 22.8
[2019-01-10 06:35] VITALS: BP 137/73
[2019-01-10] MEDS: Glucerna Carbsteady SHAKE Vanilla 8oz PO SCH ×2 (08:00→12:00)
--- NOTE | 2019-01-10 08:00 | NUR ---
Opening Note Assumed care of patient, he is A & O x4. No s/s of distress at this time. POC discussed with patient. He is comfortable at this time. Will continue to monitor Q1h and PRN. Bed is in low, locked position, Bed alarm on. Patient is on specialty mattress. Toya boots on feet to protect heels, SCDs on. Patient cannot use call light will round frequently and PRN.
--- NOTE | 2019-01-10 09:11 | NUR ---
Paged Dr. Mcintosh for transfer paperwork signature to [facility].
[2019-01-10] MEDS: SODIUM BICARBONATE 50ML VIAL 50 ML in D5W/SOD CHL 0.45% 1,000 ML IV SCH (09:57)
[2019-01-10] MEDS: DILTIAZEM HCL 120MG ER CAP PO SCH (09:58)
[2019-01-10] MEDS: FLORASTOR (S. BOULARDII) 250 MG CAP PO SCH (09:58)
[2019-01-10] MEDS: POTASSIUM CHL 20 Meq TABLET PO SCH (09:59)
[2019-01-10 10:00] VITALS: BP 122/68
[2019-01-10 14:00] VITALS: BP 141/72
--- NOTE | 2019-01-10 15:01 | NUR ---
Per consult for SNF placement. Per Oliverene to faxed medical records to [facility]. Contacted [facility] ph:) Fax: ) faxed medical records. Per Leigh from [facility] Pt has been accepted to room [address] accepting MD Dr. Mcintosh. Per Leigh from [facility] will be the transportation. Contacted [facility] ph: ) and spoke to Celi. Per Celi pt will be lease picker at 16:30 via [facility]. Informed ALEAH Morgan. Addendum: 01/10/19 at 1509 by LISE BLACKBURN Amended: Links added.
--- NOTE | 2019-01-10 15:30 | NUR ---
MRSA swab sent for discharge to lab. Wound photos taken of sacrum, left and right heels, right lateral foot, and right 3,4,5 digits.
--- NOTE | 2019-01-10 16:10 | NUR ---
Called [facility] to give report for patient transfer, awaiting nurse call back. Patient going to room 34B, receiving RN, Louisa. Dairy Tester at [facility] took this RN phone number and said "Louisa will call you back."
[2019-01-10 16:18] VITALS: BP 140/68
--- NOTE | 2019-01-10 17:05 | NUR ---
[facility] Arrived Transfer to [facility], to room 34B. Tobias is the name of the regional driver for transport. Aware they are taking patient to [facility] and they know the room number. Patient is also aware. Discharge instructions given as ordered. Encourage to follow up with PMD as instructed. All questions and concerns addressed. Patient verbalized understanding. Medication reconciliation form completed and copy given to patient. IV removed with catheter intact, pressure dressing applied, brwon catheter remained in place. Patient had all personal belongings. No distress noted at time of departure.
--- NOTE | 2019-01-10 17:05 | NUR ---
Attempted to call [facility] again to give report, no answer.
--- NOTE | 2019-01-10 17:30 | NUR ---
Report given to [facility] RN receiving patient took report, all questions answered.
== END 2019-01-10 17:05 | DRG 371 ==
LOC: EDBD 14:55 → EDUNIT# 14:55 → ER 15:00 → TELE 15:01 → TELE-CENTR 21:33 → DOU IN ICU 12-11 21:01 → TELE-CENTR 12-16 20:59 → CENTRAL 12-26 06:32
PROVIDERS: ADMIT Internal Medicine; ATTEND Internal Medicine
PROC: 30233N1 Transfusion of Nonautologous Red Blood Cells into Peripheral Vein, Percutaneous Approach (ICD-10-PCS; principal; 2019-01-06)
DX: A04.72 Enterocolitis due to Clostridium difficile, not specified as recurrent (principal); N17.0 Acute kidney failure with tubular necrosis; E43 Unspecified severe protein-calorie malnutrition; N13.8 Other obstructive and reflux uropathy; G12.21 Amyotrophic lateral sclerosis; E87.2 Acidosis; I95.9 Hypotension, unspecified; E11.22 Type 2 diabetes mellitus with diabetic chronic kidney disease; E11.42 Type 2 diabetes mellitus with diabetic polyneuropathy; E11.51 Type 2 diabetes mellitus with diabetic peripheral angiopathy without gangrene; E86.0 Dehydration; E87.6 Hypokalemia; N18.9 Chronic kidney disease, unspecified; N40.1 Benign prostatic hyperplasia with lower urinary tract symptoms; E11.65 Type 2 diabetes mellitus with hyperglycemia; I12.9 Hypertensive chronic kidney disease with stage 1 through stage 4 chronic kidney disease, or unspecified chronic kidney disease; E86.9 Volume depletion, unspecified; I48.91 Unspecified atrial fibrillation; F32.9 Major depressive disorder, single episode, unspecified; D50.9 Iron deficiency anemia, unspecified; L89.621 Pressure ulcer of left heel, stage 1; L89.152 Pressure ulcer of sacral region, stage 2; L89.891 Pressure ulcer of other site, stage 1; E11.621 Type 2 diabetes mellitus with foot ulcer; L97.519 Non-pressure chronic ulcer of other part of right foot with unspecified severity; E88.09 Other disorders of plasma-protein metabolism, not elsewhere classified; N30.90 Cystitis, unspecified without hematuria; Z93.3 Colostomy status; Z86.73 Personal history of transient ischemic attack (TIA), and cerebral infarction without residual deficits; Z68.30 Body mass index [BMI] 30.0-30.9, adult; Z83.3 Family history of diabetes mellitus; Z82.49 Family history of ischemic heart disease and other diseases of the circulatory system; Z81.8 Family history of other mental and behavioral disorders; Z79.899 Other long term (current) drug therapy; Z79.84 Long term (current) use of oral hypoglycemic drugs
CPT/HCPCS: 36415; 71045; 74018; 74176; 80048; 80053; 81001; 82306; 82570; 82607; 82728; 82784; 82962; 83036; 83540; 83550; 83605; 83615; 83735; 83880; 83970; 84100; 84156; 84484; 85025; 85045; 85379; 85610; 85730; 86334; 86335; 86850; 86880; 86900; 86901; 86920; 87081; 87086; 87493; 93005; 96365; G0378; J0696; J1815; J2001; J2405; J3480; J3490; J7060; P9047